=== PATIENT | female | born 1960 | race Caucasian/White ===

== ENCOUNTER 2020-06-08 14:46 | Outpatient (REF) | payer BC, SELFPAY ==
[2020-06-08 17:15] LABS: Alanine Aminotransferase 33 U/L (0-31); Albumin Level 4.9 g/dL (3.5-5.0); Alkaline Phosphatase 57 U/L (39-117); Anion Gap 12 (12-20); Aspartate Amino Transferase 22 U/L (5-31); Bilirubin Total 0.7 mg/dL (0.0-1.0); Blood Urea Nitrogen 14 mg/dL (9-16); Calcium 9.9 mg/dL (8.4-10.2); Carbon Dioxide 30 mmol/L (22-29); Chloride 103 mmol/L (96-108); Estimated Glomerular Filt Rate > 60; Glucose Random 96 mg/dL (60-115); Potassium 3.8 mmol/l (3.3-5.1); Sodium 141 mmol/L (135-145); Total Protein 7.7 g/dL (6.5-8.0)
[2020-06-09 10:56] LABS: SARS COV2 IgG Negative (Negative)
== END 2020-06-08 14:47 | disposition home or self-care (01) ==
LOC: HO.HMGCLDS 14:46
PROVIDERS: PCP Internal Medicine; Visit Provider Internal Medicine
DX: Z00.01 Encounter for general adult medical examination with abnormal findings (principal); R25.2 Cramp and spasm; Z20.828 Contact with and (suspected) exposure to other viral communicable diseases
CPT/HCPCS: 80053; 86769

== ENCOUNTER → 2020-07-08 13:36 | Outpatient (BNVA) | payer BC, SELFPAY | PROVIDERS: PCP Internal Medicine; Referring Provider Internal Medicine; Visit Provider Nurse Practitioner | DX: Z76.89 Persons encountering health services in other specified circumstances (principal) ==

== ENCOUNTER 2020-07-21 08:04 | Outpatient (REF) | payer BC, SELFPAY ==
--- NOTE | 2020-07-21 08:08 | US_ITS ---
EXAMINATION: US ABDOMEN LIMITED CLINICAL INFORMATION: Liver cyst. COMPARISON: Ultrasound abdomen complete dated 02/16/2019. TECHNIQUE: Real-time imaging of the right upper quadrant abdominal viscera. FINDINGS: PANCREAS: The visualized head of the pancreas is within normal limits. The remainder of the pancreas is obscured by overlying bowel gas. LIVER: The liver is normal in size. The liver contour is normal. Parenchymal echogenicity is normal. Within the left lobe is a 0.7 x 0.5 x 0.7 cm simple cyst, unchanged in size or character from the 2019 comparison. No new or or enlarging hepatic lesions are identified. There is no intrahepatic biliary duct dilatation seen. GALLBLADDER: Normal. The gallbladder is physiologically distended without evidence of stones, sludge, polyps, wall thickening or pericholecystic fluid. COMMON BILE DUCT: Normal in caliber measuring 0.4 cm in diameter. RIGHT KIDNEY: Normal. No hydronephrosis. No renal calculi or focal parenchymal lesions. The kidney measures 11.0 cm in maximum dimension. FREE FLUID: None. US/US abdomen limited IMPRESSION: 1. Subcentimeter simple cyst within the left hepatic lobe is stable from 2019. No new hepatic lesions identified. 2. Otherwise unremarkable abdominal ultrasound.
== END 2020-07-21 08:05 | disposition home or self-care (01) ==
LOC: HO.US 08:04
PROVIDERS: Visit Provider Nurse Practitioner
DX: K76.89 Other specified diseases of liver (principal)
CPT/HCPCS: 76705

== ENCOUNTER → 2020-08-25 09:06 | Outpatient (BNVA) | payer BC, SELFPAY | PROVIDERS: PCP Internal Medicine; Visit Provider Nurse Practitioner | DX: Z76.89 Persons encountering health services in other specified circumstances (principal) ==

== ENCOUNTER 2021-02-21 09:59 | Outpatient (REF) | payer BC, SELFPAY ==
[2021-02-21 13:21] LABS: MANUAL DIFF FLAG NO
[2021-02-21 13:30] LABS: Basophils Absolute Auto 0.1 X10*3/uL (0.0-0.2); Basophils Percent Auto 1.8 % (0-2); Eosinophils Absolute Auto 0.4 X10*3/uL (0.0-0.4); Eosinophils Percent Auto 6.5 % (0-4); Hematocrit 45.1 % (37-47); Hemoglobin 14.6 g/dl (12.0-16.0); Imm Gran Abs Auto 0.02 X10*3/uL (0.00-0.03); Imm Gran Pct Auto 0.4 % (0.0-0.4); Lymphocytes Absolute Auto 1.7 X10*3/uL (1.2-4.9); Mean Corpuscular HGB Conc 32.4 g/dl (31.0-35.0); Mean Corpuscular Hemoglobin 28.7 pg (27.0-33.0); Mean Corpuscular Volume 88.6 fL (80-98); Monocytes Absolute Auto 0.5 X10*3/uL (0.1-1.2); Monocytes Percent Auto 9.3 % (2-11); Platelet Count 359 X10*3/uL (160-400); Red Blood Count 5.09 X10*6/uL (4.20-5.50); Red Cell Distribution Width 12.3 % (11.0-16.0); White Blood Count 5.7 X10*3/uL (4.8-10.8)
[2021-02-21 13:54] LABS: Alanine Aminotransferase 23 U/L (0-31); Albumin Level 4.7 g/dL (3.5-5.0); Alkaline Phosphatase 58 U/L (39-117); Anion Gap 11 (12-20); Aspartate Amino Transferase 21 U/L (5-31); Bilirubin Total 0.8 mg/dL (0.0-1.0); Blood Urea Nitrogen 16 mg/dL (9-16); Calcium 9.7 mg/dL (8.4-10.2); Carbon Dioxide 29 mmol/L (22-29); Chloride 106 mmol/L (96-108); Estimated Glomerular Filt Rate > 60; Glucose Random 105 mg/dL (60-115); Sodium 141 mmol/L (135-145); Total Protein 7.2 g/dL (6.5-8.0)
== END 2021-02-21 10:00 | disposition home or self-care (01) ==
LOC: HO.10HDL 09:59
PROVIDERS: PCP Internal Medicine; Referring Provider Internal Medicine; Visit Provider Nurse Practitioner
DX: K21.9 Gastro-esophageal reflux disease without esophagitis (principal); K58.9 Irritable bowel syndrome, unspecified; Q27.8 Other specified congenital malformations of peripheral vascular system; K29.30 Chronic superficial gastritis without bleeding; K76.89 Other specified diseases of liver; Z83.71 Family history of colonic polyps
CPT/HCPCS: 36415; 80053; 85025

== ENCOUNTER 2021-03-28 07:26 | Outpatient (REF) | payer BC, SELFPAY ==
--- NOTE | ~2021-03-28 | MM_ITS ---
EXAMINATION: MM SCREENING DIGITAL BREAST TOMOSYNTHESIS, BILATERAL CLINICAL INFORMATION: Screening. Asymptomatic. The lifetime risk of breast cancer based on the Tyrer-Cuzick Model is 12%. COMPARISON: Mammography: 03/22/2020, 12/27/2018, 11/16/2017 TECHNIQUE: Digital breast tomosynthesis is performed in both the craniocaudal and mediolateral oblique views along with computer-aided detection (CAD). Synthesized 2D images are generated from the tomosynthesis. FINDINGS: The breasts are heterogeneously dense, which may obscure small masses (ACR BI-RADS breast composition Category c). There are no significant masses, abnormal calcifications, or other abnormalities. There is stable smooth nodule mid upper outer left breast and stable smooth nodule mid upper outer right breast similar to prior studies. The axilla and skin contours are unremarkable. No significant changes. MM/MM tomosynthesis screening BI IMPRESSION: No mammographic evidence of malignancy. ASSESSMENT: BI-RADS 2: Benign RECOMMENDATION: Routine annual mammography screening. This patient's information was entered into a reminder system with a target due date for their next mammogram.
== END 2021-03-28 07:27 | disposition home or self-care (01) ==
LOC: HO.MAMMO 07:26
PROVIDERS: Visit Provider Internal Medicine
DX: Z12.31 Encounter for screening mammogram for malignant neoplasm of breast (principal)
CPT/HCPCS: 77063; 77067

== ENCOUNTER 2021-03-29 12:45 | Day surgery (SDC) | payer BC, SELFPAY ==
[2021-03-22 13:21] VITALS: BMI 27.0
--- NOTE | 2021-03-28 11:48 | HO.ANESPROP2 ---
Documented by User: Nancy Grahamney 03/28/21 11:49 HPI - Anesthesia Eval Consult details Narrative: 61yo F for Colonoscopy PMFSH Active Problems Active Problems: All Active Problems (Updated 03/22/21 @ 13:25 by Gaby Ahn) GERD (gastroesophageal reflux disease) (Acute) Dysphagia lusoria (Acute) Chronic superficial gastritis without bleeding (Acute) IBS (irritable bowel syndrome) (Acute) Liver cyst (Acute) Family history of polyps in the colon (Acute) Past Medical History Medical History (Updated 03/22/21 @ 13:25 by Gaby Ahn) COVID-19 vaccine series completed GERD (gastroesophageal reflux disease) Hiatal hernia IBS (irritable bowel syndrome) Osteoarthritis Family History Family History Mother Breast cancer Colon polyps High blood pressure Hypothyroid Father CVD (cardiovascular disease) Brother H/O heart artery stent Cancer Surgical History Surgical History (Updated 03/22/21 @ 13:14 by Gaby Ahn) H/O esophagogastroduodenoscopy History of nasal septoplasty Hx of section Hx of colonoscopy Hx of oral surgery Social History Social History Are you a primary career and guidance counselor to a significant other at home: No Do you presently have visiting nurse or other home services: No Alcohol intake: current Alcohol intake frequency: a few times a month Alcohol type: wine Patient Tobacco Use Status: Former Tobacco user Quit Date: Back in High School Tobacco use type: Cigarette Years Smoked: in high school Second Hand Smoke Exposure: No Use of substances other than those prescribed or required for medical reasons: No Have you been hit, kicked, punched, or otherwise hurt by someone within the past year? If so, by whom?: No Are you DNR?: No Advance Directives: No Advance Directives Information Provided: No Advance Directives on File: No Recently lost weight without trying: No Eating poorly because of decreased appetite: No Nutrition Risks: No Nutritional Risk Patient : No Meds Allergies Allergy/AdvReac Type Severity Reaction Status Date / Time No Known Allergies Allergy Verified 03/22/21 13:09 [No Known Allergies*] Home Medications Medication Instructions Recorded Confirmed Last Taken Type cholecalciferol (vitamin D3) 25 25 mcg PO DAILY 03/22/21 03/22/21 Unknown History mcg (1,000 unit) capsule (Vitamin D3) Exam Exam Date and Time: March 28, 2021 1148 Height,Weight and Vital Signs: Height 5 ft 4.5 in Weight 72.575 kg Pertinent Lab Results Pertinent Lab Results: Laboratory Tests 02/21/21 02/21/21 11:12 11:12 WBC 5.7 Hgb 14.6 Hct 45.1 Plt Count 359 Sodium 141 Potassium 5.0 Chloride 106 Carbon Dioxide 29 BUN 16 Creatinine 0.71 Assessment and Plan Assessment Anesthesia Assessment: Chart Reviewed Documented by User: Tisha Zambrano 03/29/21 13:09 [facility] Past Medical History Medical History (Updated 03/22/21 @ 13:25 by Gaby Ahn) COVID-19 vaccine series completed GERD (gastroesophageal reflux disease) Hiatal hernia IBS (irritable bowel syndrome) Osteoarthritis Family History Family History Mother Breast cancer Colon polyps High blood pressure Hypothyroid Father CVD (cardiovascular disease) Brother H/O heart artery stent Cancer Surgical History Surgical History (Updated 03/22/21 @ 13:14 by Gaby Ahn) H/O esophagogastroduodenoscopy History of nasal septoplasty Hx of section Hx of colonoscopy Hx of oral surgery Social History Social History Are you a primary career and guidance counselor to a significant other at home: No Do you presently have visiting nurse or other home services: No Alcohol intake: current Alcohol intake frequency: a few times a month Alcohol type: wine Patient Tobacco Use Status: Former Tobacco user Quit Date: Back in High School Tobacco use type: Cigarette Years Smoked: in high school Second Hand Smoke Exposure: No Use of substances other than those prescribed or required for medical reasons: No Have you been hit, kicked, punched, or otherwise hurt by someone within the past year? If so, by whom?: No Are you DNR?: No Advance Directives: No Advance Directives Information Provided: No Advance Directives on File: No Recently lost weight without trying: No Eating poorly because of decreased appetite: No Nutrition Risks: No Nutritional Risk Patient : No Meds Allergies Allergy/AdvReac Type Severity Reaction Status Date / Time No Known Allergies Allergy Verified 03/22/21 13:09 [No Known Allergies*] Home Medications Medication Instructions Recorded Confirmed Last Taken Type cholecalciferol (vitamin D3) 25 25 mcg PO DAILY 03/22/21 03/22/21 Unknown History mcg (1,000 unit) capsule (Vitamin D3) Exam Airway Mallampati Class: II TM Dist: >3cm Neck ROM: Full Partial: Lower (Perm) Heart: rrr Lungs: cya Assessment and Plan Assessment Anesthesia Assessment: Anesthesia Plan Discussed and Chart Reviewed Final Anesthetic Review NPO: Yes ASA Class: II Final Preanesthetic Review: No Changes in Pt Med Stat, Meds/Allgs Chart Reviewed and Consent Obtained/Reviewed Patient Risk: Intermediate Procedure Risk: Intermediate Anesthetic Plan Anesthetic Plan: MAC: Disposition: Standard PACU
[2021-03-29 13:11] VITALS: BP 127/90; PULSE 84; RESP 16; TEMP 36.7; O2SAT 98
[2021-03-29] MEDS: Lactated Ringers 1,000 ML 100 ML IVCONT (13:21)
--- NOTE | 2021-03-29 13:36 | P.HPSUR_ITS ---
Pre-Procedural Eval Section A Date of Service: 03/29/21 Section B Chief Complaint: hx of colonic polyps Details of Present Illness: mother had polyps in her 40s Relevant Family History (Specify if Yes): Yes Relevant Social History: None (ex smoker) Present Medications: see Short Stay Collaborative assessment Medical History: Significant History (GERD (gastroesophageal reflux disease) Hiatal hernia IBS (irritable bowel syndrome) Osteoarthritis) History of Previous Operations: Relevant previous surgery/procedure and date(s) (H/O esophagogastroduodenoscopy History of nasal septoplasty Hx of section Hx of colonoscopy Hx of oral surgery) Allergies: Allergies Allergy/AdvReac Type Severity Reaction Status Date / Time No Known Allergies Allergy Verified 03/22/21 13:09 [No Known Allergies*] Review of Systems Sugical H&P ROS: Negative: Constitution, Cardiovascular, Respiratory, Neurological, Psychiatric, Hem-Onc, Allergic/Immunologic, Gastrointestinal, Genitourinary, Musculoskeletal, Integumentary, Endocrine and Eye s/Ears/Nose/Throat Exam Surgical H&P Exam: Normal: HEENT, Normal: Heart, Normal: Lungs, Normal: Extremities, Normal: Abdomen, Normal: Skin and Normal: Neurological Plan Diagnosis/Plan: Unchanged I have reviewed the history and physical and performed a pertinent physical examination on my patient. No changes have occurred unless specified.
--- NOTE | 2021-03-29 13:38 | PM.OP ---
Brief Operative Note Date of Service: 03/29/21 Pre-op diagnosis: colon screen, FH of polyps in mother Post-op diagnosis: same Procedure: see op note Surgeon: Blayne Forbes MD Anesthesia: MAC Was an Photoengraving Supervisor used for this Procedure?: No Estimated blood loss (mL): 0 Condition: stable Disposition: PACU
--- NOTE | 2021-03-29 13:39 | P.CONAN_ITS ---
[facility] Active Problems Active Problems: All Active Problems (Updated 03/22/21 @ 13:25 by Gaby tapia) GERD (gastroesophageal reflux disease) (Acute) Dysphagia lusoria (Acute) Chronic superficial gastritis without bleeding (Acute) IBS (irritable bowel syndrome) (Acute) Liver cyst (Acute) Family history of polyps in the colon (Acute) Past Medical History Medical History (Updated 03/22/21 @ 13:25 by Gaby Ahn) COVID-19 vaccine series completed GERD (gastroesophageal reflux disease) Hiatal hernia IBS (irritable bowel syndrome) Osteoarthritis Family History Family History Mother Breast cancer Colon polyps High blood pressure Hypothyroid Father CVD (cardiovascular disease) Brother H/O heart artery stent Cancer Family history of problems with anesthesia: Yes Surgical History Surgical History (Updated 03/22/21 @ 13:14 by Gaby Ahn) H/O esophagogastroduodenoscopy History of nasal septoplasty Hx of section Hx of colonoscopy Hx of oral surgery History of Problems with Anesthesia: Yes Social History Social History Are you a primary director of primary care to a significant other at home: No Do you presently have visiting nurse or other home services: No Alcohol intake: current Alcohol intake frequency: a few times a month Alcohol type: wine Patient Tobacco Use Status: Former Tobacco user Quit Date: Back in High School Tobacco use type: Cigarette Years Smoked: in high school Second Hand Smoke Exposure: No Use of substances other than those prescribed or required for medical reasons: No Have you been hit, kicked, punched, or otherwise hurt by someone within the past year? If so, by whom?: No Are you DNR?: No Advance Directives: No Advance Directives Information Provided: No Advance Directives on File: No Recently lost weight without trying: No Eating poorly because of decreased appetite: No Nutrition Risks: No Nutritional Risk Patient : No Meds Allergies Allergy/AdvReac Type Severity Reaction Status Date / Time No Known Allergies Allergy Verified 03/22/21 13:09 [No Known Allergies*] Active Medications: Current Medications Generic Name Dose Route Start Last Admin Trade Name Freq PRN Reason Stop Dose Admin Lactated Ringer's 1,000 mls @ 100 mls/hr 03/29/21 13:15 03/29/21 13:21 Lr IVCONT 100 mls/hr .Q10H VAMSI Administration Home Medications Medication Instructions Recorded Confirmed Last Taken Type cholecalciferol (vitamin D3) 25 25 mcg PO DAILY 03/22/21 03/22/21 Unknown History mcg (1,000 unit) capsule (Vitamin D3) Exam Exam Date and Time: March 29, 2021 1339 Height,Weight and Vital Signs: Height 5 ft 4.5 in Weight 72.575 kg Last Vital Signs Temp 98.0 F 03/29/21 13:11 Pulse 84 03/29/21 13:11 Resp 16 03/29/21 13:11 BP 127/90 H 03/29/21 13:11 Pulse Ox 98 03/29/21 13:11 Airway Mallampati Class: II TM Dist: >3cm Neck ROM: Full Heart: rrr Lungs: cta Assessment and Plan Assessment Anesthesia Assessment: Anesthesia Plan Discussed and Chart Reviewed Final Anesthetic Review Family History of Problems with Anesthesia: Yes History of Problems with Anesthesia: Yes NPO: Yes ASA Class: III and Emergency Final Preanesthetic Review: No Changes in Pt Med Stat, Meds/Allgs Chart Reviewed and Consent Obtained/Reviewed Patient Risk: Intermediate Procedure Risk: Intermediate Anesthetic Plan Anesthetic Plan: GA Disposition: Standard PACU
--- NOTE | 2021-03-29 13:39 | P.OP_ITS ---
Operative Note Operative Note Date of Service: 03/29/21 Narrative: Operative Information Procedure Description: Colonoscopy COLONOSCOPY Instrument: Olympus variable stiffness adult scope 190L Colonoscopy Monitoring: Vital signs and clinical assessment, continuous EKG monitoring, Pulse oximetry, Carbon Dioxide monitoring and blood pressure monitoring were done throughout the procedure. Colon withdrawal time was 8 minutes. Procedure: The patient was placed in the left lateral decubitis position and pre-procedure medications were administered. After a digital rectal examination of the ano-rectum, the video colonoscope was inserted into the rectum and advanced through the colon to the cecum/TI. The colonoscope was slowly withdrawn in a retrograde panoramic fashion and the colon mucosa was carefully examined including a retroflexed view of the rectum. Findings and interventions are described below. Procedure Difficulty: easy Findings: Terminal Ileum-normal Cecum:normal Ascending Colon: normal Transverse Colon -normal Descending Colon:normal Sigmoid Colon: normal Rectum: Retroflexion with small internal hemorrhoids, grade I with skin tags Anorectum - normal Colon preparation: [place] Bowel Preparation Scale Right colon; 2 Transverse colon: 3 Left colon; 3 (0 = Unprepared colon segment with mucosa not seen due to solid stool that cannot be cleared. 1 = Portion of mucosa of the colon segment seen, but other areas of the colon segment not well seen due to staining, residual stool and/or opaque liquid. 2 = Minor amount of residual staining, small fragments of stool and/or opaque liquid, but mucosa of colon segment seen well. 3 = Entire mucosa of colon segment seen well with no residual staining, small fragments of stool or opaque liquid) Impression and Post Procedure Diagnosis: internal hemorrhoids Plan: High fiber diet leaflet Avoid straining at stool, epsom salts and sitz bath, anusol supps or cream Repeat Colonoscopy in 5 years due to Fh of colon polyps or earlier if clinically indicated Above findings were reviewed with the patient and relevant handouts were provided if indicated.
[2021-03-29 14:13] VITALS: BP 108/69; PULSE 95; RESP 16; TEMP 36.8; O2SAT 97
[2021-03-29 14:28] VITALS: BP 128/79; PULSE 84; RESP 17; TEMP 36.8; O2SAT 98
== END 2021-03-29 15:00 | disposition home or self-care (01) ==
PROVIDERS: PCP Internal Medicine; Visit Provider Internal Medicine Gastroenterology
PROC: 0DJD8ZZ Inspection of Lower Intestinal Tract, Via Natural or Artificial Opening Endoscopic (ICD-10-PCS; CPT 45378; principal; 2021-03-29 13:50)
DX: Z12.11 Encounter for screening for malignant neoplasm of colon (principal); Z83.71 Family history of colonic polyps; K64.0 First degree hemorrhoids; K64.4 Residual hemorrhoidal skin tags; K58.9 Irritable bowel syndrome, unspecified; K21.9 Gastro-esophageal reflux disease without esophagitis; K76.89 Other specified diseases of liver; Z87.891 Personal history of nicotine dependence; Z79.899 Other long term (current) drug therapy
CPT/HCPCS: 45378; J2405

== ENCOUNTER → 2021-04-17 08:22 | Outpatient (BNVA) | payer BC, SELFPAY | PROVIDERS: PCP Internal Medicine; Visit Provider Nurse Practitioner ==

== ENCOUNTER 2021-04-27 11:48 | Outpatient (REF) | payer BC, SELFPAY | END 2021-04-27 11:49 | disposition home or self-care (01) | LOC: HO.LNP 11:48 | PROVIDERS: Visit Provider Hospitalist | DX: Z20.822 Contact with and (suspected) exposure to COVID-19 (principal); J01.90 Acute sinusitis, unspecified | CPT/HCPCS: U0003; U0005 ==

== ENCOUNTER → 2021-10-16 15:36 | Outpatient (BNVA) | payer BC, SELFPAY | PROVIDERS: PCP Internal Medicine; Referring Provider Internal Medicine; Visit Provider Nurse Practitioner ==

== ENCOUNTER 2022-06-09 07:41 | Outpatient (REF) | payer BC, SELFPAY ==
--- NOTE | ~2022-06-09 | MM_ITS ---
EXAMINATION: MM SCREENING DIGITAL BREAST TOMOSYNTHESIS, BILATERAL CLINICAL INFORMATION: Screening. Asymptomatic. Family history breast cancer, mother. The lifetime risk of breast cancer based on the Tyrer-Cuzick Model is 13%. COMPARISON: Mammography: 03/28/2021, 03/22/2020, 12/27/2018 TECHNIQUE: Digital breast tomosynthesis is performed in both the craniocaudal and mediolateral oblique views along with computer-aided detection (CAD). Synthesized 2D images are generated from the tomosynthesis. FINDINGS: The breasts are heterogeneously dense, which may obscure small masses (ACR BI-RADS breast composition Category c). Bilateral solitary smooth nodule mid upper outer left breast and mid upper outer right breast are similar to slightly decreased from prior exam. There is no developing density or interval architectural abnormality. No significant mass. No abnormal calcifications. The axilla and skin contours are unremarkable. No significant changes. MM/MM tomosynthesis screening BI IMPRESSION: No mammographic evidence of malignancy. ASSESSMENT: BI-RADS 2: Benign RECOMMENDATION: Routine annual mammography screening. This patient's information was entered into a reminder system with a target due date for their next mammogram.
== END 2022-06-09 07:42 | disposition home or self-care (01) ==
LOC: HO.MAMMO 07:41
PROVIDERS: Absent Provider Obstetrics & Gynecology; PCP Internal Medicine; Visit Provider Internal Medicine
DX: Z12.31 Encounter for screening mammogram for malignant neoplasm of breast (principal)
CPT/HCPCS: 77063; 77067

== ENCOUNTER → 2022-12-06 13:52 | Outpatient (BNVA) | payer BC, SELFPAY | PROVIDERS: PCP Internal Medicine; Referring Provider Internal Medicine; Visit Provider Nurse Practitioner | DX: Z13.89 Encounter for screening for other disorder (principal) ==

== ENCOUNTER 2023-01-30 06:10 | Outpatient (REF) | payer BC, SELFPAY ==
[2023-01-30 11:10] LABS: MANUAL DIFF FLAG NO
[2023-01-30 11:34] LABS: Basophils Absolute Auto 0.1 X10*3/uL (0.0-0.2); Basophils Percent Auto 1.5 % (0-2); Eosinophils Absolute Auto 0.5 X10*3/uL (0.0-0.4); Eosinophils Percent Auto 7.5 % (0-4); Hematocrit 44.7 % (37.0-47.0); Hemoglobin 14.3 g/dl (12.0-16.0); Imm Gran Abs Auto 0.02 X10*3/uL (0.00-0.03); Imm Gran Pct Auto 0.3 % (0.0-0.4); Lymphocytes Absolute Auto 1.6 X10*3/uL (1.2-4.9); Lymphocytes Percent Auto 25.4 % (20-40); Mean Corpuscular Hemoglobin 28.5 pg (27.0-33.0); Mean Platelet Volume 9.8 fL (9.4-12.3); Monocytes Absolute Auto 0.6 X10*3/uL (0.1-1.2); Monocytes Percent Auto 8.9 % (2-11); Neutrophils Absolute Auto 3.5 x10*3/uL (2.0-8.3); Neutrophils Percent Auto 56.4 % (45-73); Platelet Count 366 X10*3/uL (160-400); Red Blood Count 5.02 X10*6/uL (4.20-5.50); Red Cell Distribution Width 12.5 % (11.0-16.0); White Blood Count 6.2 X10*3/uL (4.8-10.8)
[2023-01-30 12:07] LABS: Alanine Aminotransferase 28 U/L (0-31); Albumin Level 4.4 g/dL (3.5-5.0); Alkaline Phosphatase 53 U/L (39-117); Anion Gap 13 (12-20); Aspartate Amino Transferase 22 U/L (5-31); Bilirubin Total 0.6 mg/dL (0.0-1.0); Blood Urea Nitrogen 20 mg/dL (9-16); Calcium 9.6 mg/dL (8.4-10.2); Carbon Dioxide 26 mmol/L (22-29); Chloride 108 mmol/L (96-108); Cholesterol 175 mg/dL; Estimated Glomerular Filt Rate > 60; Glucose Fasting 125 mg/dL (60-99); HDL Cholesterol 54 mg/dL; LDL Cholesterol Calculated 109 mg/dl; Potassium 4.3 mmol/L (3.3-5.1); Rheumatoid Factor < 13.0 IU/mL (<15.0); Sodium 143 mmol/L (135-145); TSH reflex Free T4 1.38 uIU/mL (0.32-4.0); Triglycerides 62 mg/dL
[2023-02-06 16:58] LABS: HLA B27 Positive (Negative)
== END 2023-01-30 06:11 | disposition home or self-care (01) ==
LOC: HO.HMGCLDS 06:10
PROVIDERS: PCP Internal Medicine; Visit Provider Internal Medicine
DX: Z00.01 Encounter for general adult medical examination with abnormal findings (principal); K21.9 Gastro-esophageal reflux disease without esophagitis; K58.9 Irritable bowel syndrome, unspecified; E04.1 Nontoxic single thyroid nodule; Z82.69 Family history of other diseases of the musculoskeletal system and connective tissue; Z82.61 Family history of arthritis; M54.50 Low back pain, unspecified; Z13.220 Encounter for screening for lipoid disorders
CPT/HCPCS: 36415; 80053; 80061; 84443; 85025; 86431; 86812

== ENCOUNTER 2023-03-28 13:56 | Outpatient (AMB) | payer BC, SELFPAY ==
[2023-03-28 14:09] VITALS: BP 134/76; PULSE 98; BMI 27.9
--- NOTE | 2023-03-28 14:09 | MHC.OFFVIS ---
Intake Vital Signs 03/28/23 14:09 Height 5 ft 5 in Weight 167 lb 8.821 oz BMI 27.9 BP 134/76 Blood Pressure Location Lt brachial Position Sitting Pulse 98 Intake Visit Reasons: NPV/Brannon/Abnormal EKG Intake Note: New patient abnormal ekg did go to [facility] yesterday with chest pain think is was spasm Insurance Verify Rep Required: No Allergies No Known Allergies [No Known Allergies*] Allergy (Verified 02/19/23 11:20) Medication List - Last Reconciled 03/28/23 by Rai Mcclain MD albuterol sulfate 90 mcg/actuation (Ventolin HFA) 1 inh inhalation Q4-6H PRN cholecalciferol (vitamin D3) (Vitamin D3) 25 mcg PO DAILY pantoprazole 20 mg PO DAILY HPI HPI Comments History of Present Illness Details Thank you for referring Helen in cardiology consultation today for abnormal EKG that was done on a routine exam. This showed septal QS pattern suggestive of septal infarct. Recently she ended up going to [facility] because she developed sudden-onset retrosternal chest discomfort at night that lasted for few hours. She described as severe chest pressure radiating to the arm and both jaws. She thought initially this was acid reflux disease and took some Tums. Symptoms then subsided and following that while she was working around the house she developed similar symptoms and ended up going to the emergency room. She was told that her EKGs were unremarkable and biomarkers were within normal limits. She was subsequently released home and she comes here for follow-up. She denies any exertional symptoms. 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 She has a stressful job. She is concerned about her chest pain syndrome as well as abnormal EKG given her strong family history for premature coronary artery disease in both her grandparents and her dad. She has mild hyperlipidemia. She also has been noticing a blood pressure at home is elevated in the 140-150/90 systolic range. She denies any heart failure symptoms. Denies any prolonged irregular heartbeat or palpitations. [facility] Medical History COVID-19 vaccine series completed GERD (gastroesophageal reflux disease) Hiatal hernia IBS (irritable bowel syndrome) Osteoarthritis Surgical History H/O esophagogastroduodenoscopy History of nasal septoplasty Hx of section Hx of colonoscopy Hx of oral surgery Family History Mother Breast cancer Colon polyps High blood pressure Hypothyroid Father CVD (cardiovascular disease) Brother H/O heart artery stent Cancer Social History Are you a primary care administrative tech to a significant other at home: No Do you presently have visiting nurse or other home services: No Alcohol intake: current Alcohol intake frequency: a few times a month Alcohol type: wine Patient Tobacco Use Status: Former Tobacco user Quit Date: Back in High School Tobacco use type: Cigarette Years Smoked: in high school Second Hand Smoke Exposure: No Cognitive needs: No Hearing needs: No Vision needs: Yes Review of Systems Const Denies chills, Denies daytime sleepiness, Denies fatigue, Denies fever(s), Denies frequent falls, Denies poor appetite, Denies snoring, Denies stops breathing during sleep, Denies weakness, Denies weight gain and Denies weight loss Eyes Denies loss of vision ENT Denies dizziness and Denies hearing loss Card Denies chest pain, Denies claudication, Denies leg edema, Denies lightheadedness, Denies palpitations, Denies dyspnea, Denies dyspnea on exertion and Denies orthopnea Resp Denies cough, Denies excessive phlegm production, Denies dyspnea, Denies dyspnea on exertion, Denies snoring and Denies wheezing GI Denies abdominal pain, Denies hematochezia, Denies change in bowel habits, Denies nausea and Denies vomiting Denies urinary frequency and Denies dysuria Musc Denies arthralgias, Denies muscle weakness, Denies numbness and Denies other (frequent falls) Skin/Breast Denies nail changes and Denies rash Neuro Denies Abnormal speech present, Denies dizziness, Denies frequent falls, Denies loss of vision, Denies memory loss, Denies numbness and Denies weakness Psych Denies depression and Denies memory loss Endo Denies fatigue and Denies palpitations Dayron/Lymph Reports easy bruising and Reports other (anemia) Aller/Immun Denies wheezing Physical Exam Vital Signs: Last Vital Signs Pulse 98 03/28/23 14:09 BP 134/76 03/28/23 14:09 BMI result Body Mass Index 27.9 Const General: cooperative, comfortable, no acute distress, alert, awake, Physically active and well groomed Nutritional Appearance: overweight Orientation/consciousness: patient oriented x3 Limitations: no limitations HEENT Head: Yes normocephalic and Yes atraumatic Neck Neck: Yes trachea midline, Yes supple and Yes no JVD Resp Effort & Inspection: normal respiratory effort Auscultation: clear to auscultation bilaterally Cardio Jugular venous distension: no JVD Palpation: normal PMI Rate: regular rate Rhythm: regular rhythm Heart sounds: S1 normal heart sound present, S2 normal heart sound present, no click, no gallops, no murmurs and no rubs GI Auscultation: normal bowel sounds Skin General skin exam: no rashes or lesions noted Neuro General: patient oriented x3 and no focal motor deficits Speech: No Abnormal speech present Extrem General: Yes no clubbing, cyanosis or edema Psych Appearance: grossly normal Office Procedures EKG Details: EKG shows normal sinus rhythm with QS pattern in lead V1 and V2 [id number], Complete Assessment & Plan Assessment & Plan (1) Chest pain: Code(s): R07.9 - Chest pain, unspecified Plan: Patient with recent episode of chest discomfort which is concerning but atypical for myocardial ischemia. She has significant risk factors for coronary artery disease. At this point I would suggest her to undergo treadmill stress test to evaluate for myocardial ischemia. This test will be scheduled in near future. Will also obtain echocardiogram to assess for LV systolic and diastolic function. She is noted to have slightly elevated blood pressure. Advised to continue monitor blood pressure. If remains persistently elevated will require pharmacotherapy for hypertension. If her stress test is within normal limits, will pursue further screening with coronary calcium score. This was discussed with her. (2) Abnormal EKG: Code(s): R94.31 - Abnormal electrocardiogram [ECG] [EKG] Plan: Abnormal EKG consistent with QS pattern in lead V1 V2 which could suggest septal infarct, most likely normal weight in for her. Obtain echocardiogram as above. If this shows no significant regional wall motion abnormality, advised to keep a call P of her EKG for future reference. Will follow up in the clinic in 2 months time, sooner p.r.n.. Thank you for allowing me to partake in her care Coding Level of Care Code New Pt Level 4 (79849) Diagnoses Chest pain R07.9 Abnormal EKG R94.31 CPT Codes EKG - CPT: 56126-[id number], Complete ([id number])
== END 2023-03-28 14:38 | disposition home or self-care (01) ==
PROVIDERS: Visit Provider Internal Medicine Cardiovascular Disease
DX: R07.9 Chest pain, unspecified (principal); R94.31 Abnormal electrocardiogram [ECG] [EKG]
CPT/HCPCS: 93010; 99204

== ENCOUNTER → 2023-03-28 13:56 | Outpatient (BNVA) | payer BC, SELFPAY | PROVIDERS: Visit Provider Internal Medicine Cardiovascular Disease | DX: R07.9 Chest pain, unspecified (principal); R94.31 Abnormal electrocardiogram [ECG] [EKG] | CPT/HCPCS: 93005 ==

== ENCOUNTER → 2023-05-09 08:16 | Outpatient (REF) | payer BC, SELFPAY ==
--- NOTE | 2023-05-09 08:19 | CA_ITS ---
Transthoracic Echocardiogram Patient (Last, First, Middle): Helen Sun A Gender: Female Date of : 1960 Age: 63 Procedure Date: 05/09/2023 Procedure Type: Transthoracic Echocardiogram Location: OP Height: 162.56 cm Weight: 74.84 kg BSA: 1.80 m2 Heart Rate: 71 bpm BP: 152 / 90 mmHg [employer]arel Mach[employer] Instructor: LIZABETH Referring MD: Rai Mcclain MD [employer] Dies: Rai Mcclain MD Symptoms: R94.31 - Abnormal electrocardiogram [ECG] [EKG] Study Quality: Adequate ECG Rhythm: Sinus Conclusions: - 1. Normal LV systolic function with LVEF of 60 65% with normal filling pattern 2. Trivial aortic regurgitation 3. Normal RV systolic pressure 4. No gross pericardial effusion Findings Left Ventricle Normal left ventricular size, thickness, and systolic function. The visually estimated ejection fraction is between 60-65%. Spectral Doppler is indicative of a normal filling pattern. Right Ventricle Normal right ventricular cavity size and systolic function. Atria Both atria are normal in size. Interatrial shunt cannot be excluded. Aortic Valve There is mild calcification of the aortic valve. There is no aortic valve stenosis. There is trace (trivial) aortic valve regurgitation. Mitral Valve There is mild anterior and posterior mitral leaflet thickening. There is trace mitral valve regurgitation. There is no mitral valve stenosis. Pulmonic Valve The pulmonic valve is likely normal. There is trace pulmonic valve regurgitation. Tricuspid Valve Normal tricuspid valve structure. There is trace tricuspid valve regurgitation. The right ventricular systolic pressure is normal. The right ventricular systolic pressure is 27 mmHg. Normal right atrial pressure. There is no evidence of pulmonary hypertension. Great Vessels All visible segments of the aorta are normal in size. The pulmonary artery was not well visualized. There is no dilatation of the ascending aorta. Venous The inferior vena cava is normal in size and collapses greater than 50% with inspiration. Pericardium/Pleural There is no evidence of pericardial effusion. Measurements 2D Linear Measurements IVSd: 1.10 0.6-0.9/0.6-1.0 cm LVIDd: 4.30 3.9-5.3/4.2-5.9 cm LVIDd Index: 2.39 2.4-3.2/2.2-3.1 cm/m2 LVIDs: 2.79 2.0-3.6 cm LVPWd: 1.04 0.7-1.1 cm LA Diam: 3.90 2.7-3.8/3.0-4.0 cm LAIDs Index: 2.17 1.5-2.3 cm/m2 LV Mass: 195.09 67-162/88-224 g LV Mass Index: 108.38 43-95/49-115 g/m2 LVOT Diam: 1.80 3.0+(-)1.3 cm 2D Systolic Function EF 4C: 55.90 >55% EF 2C: 65.90 >55% EF BiP: 61.20 >55% Mitral Valve MV Pk E: 1.02 MV PK A: 0.81 MV Decel Time: 174.00 E/A: 1.30 E'Lateral: 10.20 E'Medial: 7.18 E/E' Med: 14.20 E/E' Lat: 10.00 PHT: 51.00 MVA PHT: 4.31 Decel Chase: 5.84 Aortic Valve AoV Pk Johny: 1.16 AoV Pk Grad: 5.00 JOSELYN: 1.89 LVOT LVOT Pk Johny: 0.86 LVOT Mn Johny: 0.62 LVOT VTI: 0.20 LVOT Pk Grad: 3.00 LVOT Mn Grad: 2.00 LVOT Diam: 1.80 LVOT Area: 2.54 Diastolic Function MV Pk E: 1.02 MV Pk A: 0.81 E/A: 1.30 E'Medial: 7.18 E/E' Med: 14.20 E' Laterial: 10.20 E/E' Lat: 10.00 Right Ventricle TAPSE (mm): 20.70 TVS' Johny: 9.79 Tricuspid Valve TR Pk Johny: 2.44 TR Pk Grad: 24.00 RA Press: 3.00 RVSP: 27.00 Great Vessels Aorta Sinus of Valsalva: 2.50 2.0-3.5 cm Ao Asc: 3.30 2.1-3.4 cm Pulmonary Veins Pulm Vein S/D 0.90 Pulmonary Valve PV Pk Johny: 0.87 Peak PV Grad: 3.00 Updated in Other Vendor System with Status of Final Rai Mcclain MD electronically signed on 05/09/2023 10:55:41 AM with status of Final
--- NOTE | 2023-05-09 08:19 | CA_ITS ---
Acquisition Time: 2023-05-09 09:36:14 Total Exercise Time: 00:07:09 Test Indications: CHEST PAIN Medications: LBUTEROL Protocol: MITALI Max HR: 153 BPM 97% of Pred: 157 BPM Max BP: 148/084 mmHG Max Work Load: 8.7 METS Exercise stress test exercise 7 min 9 sec achieving 97% MPHR, with mild ot moderate SOB, no chest discomfort, with isolated PVCs, with normotensive response to exercise, without EKG changes. Test reviewed with Dr. Mcclain Very mild upsloping ST depression, possibly non specific Referred By: Rai Mcclain Overread By: RICHAR GATES
== END ==
LOC: HO.CARD 08:16
PROVIDERS: PCP Internal Medicine; Visit Provider Internal Medicine Cardiovascular Disease
DX: R07.9 Chest pain, unspecified (principal); R94.31 Abnormal electrocardiogram [ECG] [EKG]
CPT/HCPCS: 93017; 93306

== ENCOUNTER → 2023-05-09 08:19 | Outpatient (BNV) | payer BC, SELFPAY | PROVIDERS: PCP Internal Medicine; Visit Provider Internal Medicine Cardiovascular Disease | DX: I34.89 Other nonrheumatic mitral valve disorders (principal); R94.31 Abnormal electrocardiogram [ECG] [EKG]; R06.02 Shortness of breath | CPT/HCPCS: 93016; 93018; 93306 ==

== ENCOUNTER 2023-06-15 08:09 | Outpatient (REF) | payer BC, SELFPAY | END 2023-06-15 08:10 | disposition home or self-care (01) | LOC: HO.MAMMO 08:09 | PROVIDERS: PCP Internal Medicine; Visit Provider Internal Medicine | DX: Z12.31 Encounter for screening mammogram for malignant neoplasm of breast (principal) | CPT/HCPCS: 77063; 77067 ==

== ENCOUNTER → 2023-06-15 08:15 | Outpatient (BNV) | payer BC, SELFPAY | PROVIDERS: PCP Internal Medicine; Visit Provider Radiology Diagnostic Radiology | DX: Z12.31 Encounter for screening mammogram for malignant neoplasm of breast (principal) | CPT/HCPCS: 77063; 77067 ==

== ENCOUNTER 2023-06-21 14:30 | Outpatient (AMB) | payer BC, SELFPAY ==
--- NOTE | 2023-06-21 14:32 | A.OFFVIS_ITS ---
Intake Vital Signs 06/21/23 14:33 Height 5 ft 5 in Weight 168 lb 13.985 oz BMI 28.1 BP 159/85 H Blood Pressure Location Rt brachial Position Sitting Pulse 89 Intake Visit Reasons: 6 month fu Intake Note: Patient presents to in office visit today in a 6 month follow up of GERD. CC: Patient c/o LUQ abd pain sometimes, she also have occasional acid reflux. PT reports she was seen in the ED a couple of months ago d/t chest pain at [facility]. She states her EKG was normal at that time but she was referred to cardiology with Dr. Cristina. Patient states all the cardiac labs came back normal . Denies other GI symptoms Account Management Assistant Required: No Accompanied by: Self / Same As Patient Allergies No Known Allergies [No Known Allergies*] Allergy (Verified 07/22/23 10:06) HPI 6 month fu HPI Details Assessment & Plan (1) GERD (gastroesophageal reflux diseas e): Code(s): K21.9 - Gastro-esophageal reflux disease without esophagitis Plan: She continues to do well on her protonix 20mg. Her swallowing has been okay as long as she practices safe swallowing precautions. She continues to have left lower quadrant discomfort that times is dull and other times is fleetingly sharp. She is uncertain if this is related to scar tissue from multiple C- sections, her ovaries, or musculoskeletal source. She will be seeing her power manager since she has not had a pelvic exam in 7 years to see if they can help clarify this. ROV 6 mos. 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 She was also seen subsequently here by Dr. Mcclain and had a negative stress test. She is still to have a cath for definitive r/o. She will also be seeing a rheum specialist in [facility] for her ? ankylosing spondylitis. She DID try taking TUMS and it did effect the pain. She can not ID any factors such as diet or new medications preceding the sx. She has been adherent to her pantoprazole 20mg qd. ROV 6 mos. PFSH Medical History COVID-19 vaccine series completed Osteoarthritis Hiatal hernia IBS (irritable bowel syndrome) GERD (gastroesophageal reflux disease) Surgical History Hx of oral surgery History of nasal septoplasty Hx of section Hx of colonoscopy H/O esophagogastroduodenoscopy Family History Mother Breast cancer Colon polyps High blood pressure Hypothyroid Father CVD (cardiovascular disease) Brother H/O heart artery stent Cancer Substance use disorder Social History Housing: House Are you a primary manager urgent care to a significant other at home: No Do you presently have visiting nurse or other home services: No Alcohol intake: current Alcohol intake frequency: a few times a month Alcohol type: wine Patient Tobacco Use Status: Former Tobacco user Quit Date: Back in High School Tobacco use type: Cigarette Years Smoked: in high school e-Cigarette/Vaping Use: Never Used Second Hand Smoke Exposure: No service: No Current occupational status: employed Cognitive needs: No Hearing needs: No Vision needs: Yes Review of Systems Const Denies fatigue, Denies fever(s), Denies night sweats, Denies poor appetite and Denies weight loss Eyes Details: glasses Reports requires corrective lenses ENT Reports Normal hearing present, Denies dental pain, Denies dysphagia, Denies hearing loss, Denies mouth pain, Denies odynophagia, Denies throat swelling, Denies tongue swelling and Reports other (Dentition adequate) Card Reports chest pain Resp Reports no additional complaints GI Denies abdominal pain, Denies melena, Denies bloating, Denies hematochezia, Denies constipation, Denies GI cramping, Denies dysphagia, Denies excessive flatus, Denies early satiety, Reports heartburn, Denies diarrhea, Denies nausea, Denies odynophagia, Denies vomiting and Denies hematemesis Musc Reports back pain and Reports myalgias Skin/Breast Denies pruritus, Denies lesions, Denies rash and Denies jaundice Neuro Reports Normal hearing present and Denies Abnormal speech present Endo Denies fatigue Aller/Immun Denies throat swelling and Denies tongue swelling Physical Exam Vital Signs: Last Vital Signs Pulse 89 06/21/23 14:33 BP 159/85 H 06/21/23 14:33 BMI result Body Mass Index 28.1 Const General: cooperative, no acute distress, well developed and well groomed Nutritional Appearance: average body habitus and well nourished Orientation/consciousness: oriented to person, oriented to place and oriented to time Limitations: No language barrier HEENT Head: Yes normocephalic and Yes atraumatic Eyes General: appearance normal, both eyes and all related structures Pupils: Equal, round and reactive pupils present Neck Neck: Yes normal visual inspection and Yes no lymphadenopathy Thyroid: Thyroid normal Resp Effort & Inspection: normal respiratory effort and able to speak in complete sentences Auscultation: clear to auscultation bilaterally Cardio Rate: regular rate Rhythm: regular rhythm Heart sounds: Normal, physiologic split S2 sound present Peripheral pulses: radial pulses present and posterior tibial pulses present GI Inspection: No distended and No Abdominal panniculus present Palpation (GI): Soft to palpation, nontender, no guarding, not rigid and No hepatosplenomegaly present Percussion: Yes normal to percussion Auscultation: normal bowel sounds Rectal Exam - Female: deferred Skin General skin exam: no rashes or lesions noted, turgor normal, skin not dry, no jaundice, No spider nevi and no striae Rashes: no rashes Nails: normal Neuro General: oriented to person, oriented to place and oriented to time Cranial nerves: Yes Equal, round and reactive pupils present and Yes Normal hearing present Speech: No Abnormal speech present Extrem General: Yes normal to inspection, No clubbing, No cyanosis and No edema Psych Appearance: grossly normal and well kempt Mental Status: mental status grossly normal Speech and movement: Normal speech and movement present Affect: normal affect Attitude: cooperative Thought process: Normal thought process present and not confabulating Thought content: Normal thought content present Insight: Fair insight present (Psych) Judgement: Fair judgement present (Psych) Assessment & Plan Assessment & Plan (1) GERD (gastroesophageal reflux disease): Code(s): K21.9 - Gastro-esophageal reflux disease without esophagitis Plan: Apparently, she was seen at [facility] for episode of chest pain and at that time had negative cardiac workup. She was also seen subsequently here by Dr. Mcclain and had a negative stress test. She is still to have a cath for definitive r/o. She will also be seeing a rheum specialist in [facility] for her ? . She DID try taking TUMS and it did effect the pain. She can not ID any factors such as diet or new medications preceding the sx. She has been adherent to her pantoprazole 20mg qd. ROV 6 mos. (2) Dysphagia lusoria: Code(s): Q27.8 - Other specified congenital malformations of peripheral vascular system (3) Family history of polyps in the colon: Comment: mother, negative scope 2020 repeat 5 years Code(s): Z83.71 - Family history of colonic polyps Plan Apparently, she was seen at [facility] for episode of chest pain and at that time had negative cardiac workup. She was also seen subsequently here by Dr. Mcclain and had a negative stress test. She is still to have a cath for definitive r/o. She will also be seeing a rheum specialist in [facility] for her ? . She DID try taking TUMS and it did effect the pain. She can not ID any factors such as diet or new medications preceding the sx. She has been adherent to her pantoprazole 20mg qd. We will try increasing this to b.i.d. dosing to see if we can do better with her reflux control. Coding Level of Care Code Est Pt Level 3 (99507) Diagnoses GERD (gastroesophageal reflux disease) K21.9 Dysphagia lusoria Q27.8 Family history of polyps in the colon Z83.71
[2023-06-21 14:33] VITALS: BP 159/85; PULSE 89; BMI 28.1
== END 2023-06-21 15:02 | disposition home or self-care (01) ==
PROVIDERS: Visit Provider Nurse Practitioner
DX: K21.9 Gastro-esophageal reflux disease without esophagitis (principal); Q27.8 Other specified congenital malformations of peripheral vascular system; Z83.71 Family history of colonic polyps
CPT/HCPCS: 99213

== ENCOUNTER → 2023-06-21 14:30 | Outpatient (BNVA) | payer BC, SELFPAY | PROVIDERS: Visit Provider Nurse Practitioner ==

== ENCOUNTER 2023-07-10 14:58 | Outpatient (AMB) | payer BC, SELFPAY ==
--- NOTE | 2023-07-10 14:59 | A.OFFPC_ITS ---
Vital Signs 07/10/23 15:04 Height 5 ft 5 in Weight 169 lb BMI 28.1 BP 148/80 H Blood Pressure Location Rt brachial Position Sitting Pulse 85 Pulse Source Pulse Oximeter Pulse Oximetry (%) 98 Oxygen Delivery Method Room Air Intake Visit Reasons: follow up Allergies No Known Allergies [No Known Allergies*] Allergy (Verified 07/10/23 15:02) Medication List - Last Reconciled 07/10/23 by Lizeth South MD albuterol sulfate 90 mcg/actuation (Ventolin HFA) 1 inh inhalation Q4-6H PRN cholecalciferol (vitamin D3) (Vitamin D3) 25 mcg PO DAILY pantoprazole 20 mg PO DAILY Tobacco use date assessed: 07/10/23 Dental Screening Dental Screen Date: 07/10/23 Did you have a dental visit in the last 12 months?: Yes Did you have a dental problem in the last 6 months where you did not have access to dental care?: No Was dental information given to patient?: Patient has dentist HPI follow up HPI Details Patient is a 63-year-old female came in today for blood pressure monitoring Her blood pressure continued to be elevated she is monitoring it at home as well I am starting her on atenolol 25 mg daily patient will continue to monitor her blood pressure She will get back to me if any problems. She tells me that her mother is also on atenolol and has done well. She will come back for follow-up in October [facility] Medical History COVID-19 vaccine series completed Osteoarthritis Hiatal hernia IBS (irritable bowel syndrome) GERD (gastroesophageal reflux disease) Surgical History Hx of oral surgery History of nasal septoplasty Hx of section Hx of colonoscopy H/O esophagogastroduodenoscopy Family History Mother Breast cancer Colon polyps High blood pressure Hypothyroid Father CVD (cardiovascular disease) Brother H/O heart artery stent Cancer Substance use disorder Social History Housing: House Are you a primary home child care provider to a significant other at home: No Do you presently have visiting nurse or other home services: No Alcohol intake: current Alcohol intake frequency: a few times a month Alcohol type: wine Patient Tobacco Use Status: Former Tobacco user Quit Date: Back in High School Tobacco use type: Cigarette Years Smoked: in high school e-Cigarette/Vaping Use: Never Used Second Hand Smoke Exposure: No service: No Current occupational status: employed Cognitive needs: No Hearing needs: No Vision needs: Yes Questionnaire Thrive Questionnaire Date Thrive assessed: 07/10/23 I am a: Patient What is your living situation today?: I have a steady place to live Within the past 12 months, did the food you bought not last and you didn't have the money to get more?: Never true Within the past 12 months, did you worry whether your food would run out before you got money to buy more?: Never true Do you have trouble paying for medicines?: No Do you have trouble getting transportation to medical appointments?: No Do you have trouble paying your heating and electricity bill?: No Do you have trouble taking care of your child, family member or friend?: No Do you have trouble with day-to-day activities such as bathing, preparing meals, shopping, managing finances, etc.?: No Are you currently unemployed and looking for a job?: No Are you interested in more education?: No Please select the resources that you would like help with: None Currently or been in a relationship where the following occur: no concerns reported AUDIT C Alcohol Use Questionnaire (AUDIT-C) 1. How often do you have a drink containing alcohol?: Monthly or less 2. How many drinks containing alcohol do you have on a typical day when you are drinking?: 1 or 2 3. How often do you have six or more drinks on one occasion?: Never Total Score: 1 HEAVENLY-7 AMB Questionnaire HEAVENLY-7 Date HEAVENLY - 7 assessed: 07/10/23 Feeling nervous, anxious, or on edge: 0 = Not at all Not being able to stop or control worryin = Not at all Worrying too much about different things: 0 = Not at all Trouble relaxin = Not at all Being so restless that it is hard to sit still: 0 = Not at all Becoming easily annoyed or irritable: 0 = Not at all Feeling afraid as if something awful might happen: 0 = Not at all Total HEAVENLY-7 score (0-4 normal; 5-9 mild; 10-14 moderate; 15-21 severe): 0 Source: Developed by Drs. Jair Monique, Angela Velasco, Daniel Whiteside and colleagues, with an educational lane from [employer]. Review of Systems Const Denies chills and Denies fever(s) ENT Denies epistaxis and Denies nasal discharge Card Denies chest pain Resp Denies chest congestion, Denies cough and Denies hemoptysis GI Denies diarrhea and Denies nausea Skin/Breast Denies rash Neuro Reports no additional complaints Psych Reports no additional complaints Endo Reports no additional complaints Physical exam (Primary Care) Vital Signs: Last Vital Signs Pulse 85 07/10/23 15:04 BP 148/80 H 07/10/23 15:04 Pulse Ox 98 07/10/23 15:04 Oxygen Delivery Method Room Air 07/10/23 15:04 BMI result Body Mass Index 28.1 Tobacco/Smoking Status: Tobacco use Status Tobacco use date assessed 07/10/23 07/10/23 15:03 Patient Tobacco Use Status Former Tobacco user 07/10/23 15:00 Tobacco use type Cigarette 07/10/23 15:00 e-Cigarette/Vaping Use Never Used 07/10/23 15:03 Thrive Assessment: Date of Thrive Assessment Date Thrive assessed 07/10/23 07/10/23 15:05 Currently or been in a relationship where the following occur: no concerns reported Const General: cooperative, comfortable and no acute distress Orientation/consciousness: patient oriented x3 HENMT Head: Yes normocephalic Eyes General: appearance normal, both eyes and all related structures Neck Neck: Yes supple Resp Effort & Inspection: normal respiratory effort, no cough and no stridor Cardio Rhythm: regular rhythm Heart sounds: S1 normal heart sound present and S2 normal heart sound present Skin General skin exam: turgor normal Neuro General: patient oriented x3, tone normal and moves all extremities Extrem Right lower extremity: no edema Left lower extremity: no edema Assessment and Plan Assessment & Plan (1) Hypertension, essential: Code(s): I10 - Essential (primary) hypertension (2) Ankylosing spondylitis: Code(s): M45.9 - Ankylosing spondylitis of unspecified sites in spine Qualifiers: Ankylosing spondylitis location: lumbosacral region Qualified Code(s): M45.7 - Ankylosing spondylitis of lumbosacral region (3) Esophageal spasm: Code(s): K22.4 - Dyskinesia of esophagus Plan Patient is a 63-year-old female came in today for blood pressure monitoring Her blood pressure continued to be elevated she is monitoring it at home as well I am starting her on atenolol 25 mg daily patient will continue to monitor her blood pressure She will get back to me if any problems. She tells me that her mother is also on atenolol and has done well. Ankylosing spondylitis gene positive however there is no back pain she has been evaluated by Rheumatology There is nothing need to be done at this time she may take Aleve as needed. She has a history of also visual spasms and has seen gastroenterology and had EGD done. She will come back for follow-up in October Medications: New atenolol 25 mg PO DAILY 90 tabs 0RF Coding Level of Care Code Est Pt Level 3 (26072) Diagnoses Hypertension, essential I10 Ankylosing spondylitis of lumbosacral region M45.7 Ankylosing spondylitis location: lumbosacral region Esophageal spasm K22.4
[2023-07-10 15:04] VITALS: BP 148/80; PULSE 85; O2SAT 98; BMI 28.1
== END 2023-07-10 15:40 | disposition home or self-care (01) ==
PROVIDERS: PCP Internal Medicine; Visit Provider Internal Medicine
DX: I10 Essential (primary) hypertension (principal); M45.7 Ankylosing spondylitis of lumbosacral region; K22.4 Dyskinesia of esophagus
CPT/HCPCS: 99213

== ENCOUNTER 2023-07-22 09:42 | Outpatient (AMB) | payer BC, SELFPAY ==
[2023-07-22 10:05] VITALS: BP 140/90; PULSE 72; TEMP 36.8; O2SAT 97; BMI 28.0
--- NOTE | 2023-07-22 10:05 | AM.OFFWIN_ITS ---
Intake Vital Signs 07/22/23 10:05 Height 5 ft 5 in Weight 168 lb BMI 28.0 BP 140/90 H Blood Pressure Location Rt brachial Position Sitting Pulse 72 Pulse Source Pulse Oximeter Temp 98.3 F Temp Source Oral Pulse Oximetry (%) 97 Intake Visit Reasons: EST/ possible reaction to medication(lobby) Intake Note: pt is here for c/o gurgling in chest after starting atenolol Patient Tobacco Use Status: Former Tobacco user Quit Date: Back in High School Allergies No Known Allergies [No Known Allergies*] Allergy (Verified 07/22/23 10:06) Do you need a note to return to daycare/school/sports/work: Yes HPI EST/ possible reaction to medication(lobby) HPI Details 63-year-old female patient presents toda y with a 1 week history of chest congestion, wheezing, productive cough with thick green sputum. Has tried albuterol and mucinex without relief. Started taking atenolol last week and is not sure if symptoms are related to this. Denies any chest pain, palpitations, dizziness. PFSH Medical History COVID-19 vaccine series completed Osteoarthritis Hiatal hernia IBS (irritable bowel syndrome) GERD (gastroesophageal reflux disease) Surgical History Hx of oral surgery History of nasal septoplasty Hx of section Hx of colonoscopy H/O esophagogastroduodenoscopy Family History Mother Breast cancer Colon polyps High blood pressure Hypothyroid Father CVD (cardiovascular disease) Brother H/O heart artery stent Cancer Substance use disorder Social History Housing: House Are you a primary career consultant to a significant other at home: No Do you presently have visiting nurse or other home services: No Alcohol intake: current Alcohol intake frequency: a few times a month Alcohol type: wine Patient Tobacco Use Status: Former Tobacco user Quit Date: Back in High School Tobacco use type: Cigarette Years Smoked: in high school e-Cigarette/Vaping Use: Never Used Second Hand Smoke Exposure: No service: No Current occupational status: employed Cognitive needs: No Hearing needs: No Vision needs: Yes Review of Systems Const All systems reviewed & are unremarkable except as noted in HPI and below Physical Exam Vital Signs: Last Vital Signs Temp 98.3 F 07/22/23 10:05 Pulse 72 07/22/23 10:05 BP 140/90 H 07/22/23 10:05 Pulse Ox 97 07/22/23 10:05 BMI result Body Mass Index 28.0 Const General: cooperative and no acute distress Nutritional Appearance: average body habitus HEENT Head: Yes normal to inspection and Yes normocephalic Ears: hearing grossly normal bilaterally General nose exam: Normal external nose present Neck Neck: Yes no lymphadenopathy and Yes no JVD Resp Effort & Inspection: normal respiratory effort and able to speak in complete sentences Auscultation: wheezes upper bilaterally Cardio Jugular venous distension: no JVD Palpation: normal PMI Rate: regular rate Rhythm: regular rhythm Skin General skin exam: no rashes or lesions noted Extrem General: Yes capillary refill normal and Yes no clubbing, cyanosis or edema Psych Appearance: grossly normal Mental Status: mental status grossly normal Speech and movement: Normal speech and movement present Assessment & Plan Assessment & Plan (1) Upper respiratory tract infection: Code(s): J06.9 - Acute upper respiratory infection, unspecified Qualifiers: URI type: unspecified URI Qualified Code(s): J06.9 - Acute upper respiratory infection, unspecified Plan: Will start on azithromycin and short course of prednisone. Reviewed indications, use, possible side effects of medications. Has taken Prednisone in the past and done well on this. Advised ongoing use of Mucinex and albuterol as needed. Advised to return to the clinic if she does not improve with treatment, or if symptoms worsen/new symptoms develop. She verbalizes understanding and agrees to plan. Medications: New azithromycin For 250 mg dose pack: take 500 mg today (day 1), then 250 mg for 4 days (days 2-5) PO 6 tabs 0RF J06.9 - Acute upper respiratory infection, unspecified prednisone 20 mg PO BID 6 tabs 0RF 3 days Coding Level of Care Code Est Pt Level 3 (50637) Diagnoses Upper respiratory tract infection, unspecified type J06.9 URI type: unspecified URI
== END 2023-07-22 10:58 | disposition home or self-care (01) ==
PROVIDERS: PCP Internal Medicine; Visit Provider Nurse Practitioner Family
DX: J06.9 Acute upper respiratory infection, unspecified (principal)
CPT/HCPCS: 99213

== ENCOUNTER 2023-09-10 09:48 | Outpatient (AMB) | payer BC, SELFPAY ==
--- NOTE | 2023-09-10 10:02 | MHC.PC.OV ---
Vital Signs 09/10/23 10:03 Height 5 ft 5 in Weight 168 lb 2 oz BMI 28.0 BP 148/88 H Blood Pressure Location Lt brachial Position Sitting Pulse 67 Pulse Source Pulse Oximeter Pulse Oximetry (%) 98 Oxygen Delivery Method Room Air Intake Visit Reasons: URI not improving Allergies No Known Allergies [No Known Allergies*] Allergy (Verified 09/10/23 10:03) Medication List - Last Reconciled 09/10/23 by Lizeth South MD albuterol sulfate 90 mcg/actuation (Ventolin HFA) 1 inh inhalation Q4-6H PRN atenolol 25 mg PO DAILY cholecalciferol (vitamin D3) (Vitamin D3) 25 mcg PO DAILY pantoprazole 20 mg PO DAILY Tobacco use date assessed: 09/10/23 Dental Screening Dental Screen Date: 09/10/23 Did you have a dental visit in the last 12 months?: Yes Did you have a dental problem in the last 6 months where you did not have access to dental care?: No Was dental information given to patient?: Patient has dentist HPI URI not improving HPI Details Patient is 63-year-old female who was seen in walk-in clinic July for upper respiratory tract infection She was treated with azithromycin and prednisone which did not help. Patient says that she continued to have symptoms until recently she started to feel better She also found out that 2 of her grandchildren had RSV but that was after she was symptomatic Currently patient is using albuterol every 4-6 hour which is helping and she is coughing which is dry and is getting better On examination her lungs are clear I have sent refill on prednisone 10 mg patient may take half a tablet for a week or full tablet Albuterol inhaler was refilled. [facility], [facility] Medical History COVID-19 vaccine series completed Osteoarthritis Hiatal hernia IBS (irritable bowel syndrome) GERD (gastroesophageal reflux disease) Surgical History Hx of oral surgery History of nasal septoplasty Hx of section Hx of colonoscopy H/O esophagogastroduodenoscopy Family History Mother Breast cancer Colon polyps High blood pressure Hypothyroid Father CVD (cardiovascular disease) Brother H/O heart artery stent Cancer Substance use disorder Social History Housing: House Are you a primary home care music therapist to a significant other at home: No Do you presently have visiting nurse or other home services: No Alcohol intake: current Alcohol intake frequency: a few times a month Alcohol type: wine Patient Tobacco Use Status: Former Tobacco user Quit Date: Back in High School Tobacco use type: Cigarette Years Smoked: in high school e-Cigarette/Vaping Use: Never Used Second Hand Smoke Exposure: No service: No Current occupational status: employed Cognitive needs: No Hearing needs: No Vision needs: Yes Questionnaire Thrive Questionnaire Date Thrive assessed: 07/10/23 AUDIT C Alcohol Use Questionnaire (AUDIT-C) 1. How often do you have a drink containing alcohol?: 2-4 times a month 2. How many drinks containing alcohol do you have on a typical day when you are drinking?: 1 or 2 Total Score: 2 Score Reviewed/Action Taken: Yes HEAVENLY-7 AMB Questionnaire HEAVENLY-7 Date HEAVENLY - 7 assessed: 07/10/23 Source: Developed by Drs. Jair Monique, Angela Velasco, Daniel Whiteside and colleagues, with an educational lane from [employer]. Review of Systems Const Denies chills and Denies fever(s) ENT Denies epistaxis and Denies nasal discharge Card Denies chest pain Resp Denies chest congestion and Denies hemoptysis GI Denies diarrhea and Denies nausea Skin/Breast Denies rash Neuro Reports no additional complaints Psych Reports no additional complaints Endo Reports no additional complaints Physical exam (Primary Care) Vital Signs: Last Vital Signs Pulse 67 09/10/23 10:03 BP 148/88 H 09/10/23 10:03 Pulse Ox 98 09/10/23 10:03 Oxygen Delivery Method Room Air 09/10/23 10:03 BMI result Body Mass Index 28.0 Tobacco/Smoking Status: Tobacco use Status Tobacco use date assessed 09/10/23 09/10/23 10:07 Patient Tobacco Use Status Former Tobacco user 09/10/23 10:07 Tobacco use type Cigarette 09/10/23 10:07 e-Cigarette/Vaping Use Never Used 09/10/23 10:07 Thrive Assessment: Date of Thrive Assessment Date Thrive assessed 07/10/23 09/10/23 10:07 Const General: cooperative, comfortable and no acute distress Orientation/consciousness: patient oriented x3 HENMT Head: Yes normocephalic Eyes General: appearance normal, both eyes and all related structures Neck Neck: Yes supple Resp Other: No wheezing Effort & Inspection: normal respiratory effort, no cough and no stridor Cardio Rhythm: regular rhythm Heart sounds: S1 normal heart sound present and S2 normal heart sound present Skin General skin exam: turgor normal Neuro General: patient oriented x3, tone normal and moves all extremities Extrem Right lower extremity: no edema Left lower extremity: no edema Assessment and Plan Assessment & Plan (1) Acute bronchitis: Code(s): J20.9 - Acute bronchitis, unspecified Qualifiers: Bronchitis organism: other organism Qualified Code(s): J20.8 - Acute bronchitis due to other specified organisms Plan Patient is 63-year-old female who was seen in walk-in clinic July for upper respiratory tract infection She was treated with azithromycin and prednisone which did not help. Patient says that she continued to have symptoms until recently she started to feel better She also found out that 2 of her grandchildren had RSV but that was after she was symptomatic Currently patient is using albuterol every 4-6 hour which is helping and she is coughing which is dry and is getting better On examination her lungs are clear I have sent refill on prednisone 10 mg patient may take half a tablet for a week or full tablet Albuterol inhaler was refilled. Medications: New prednisone 10 mg PO DAILY 5 days 5 tabs 0RF Refilled albuterol sulfate 90 mcg/actuation (Ventolin HFA) 1 inh inhalation Q4-6H PRN 8.5 grams 2RF shortness of breath or wheezing Coding Level of Care Code Est Pt Level 3 (95833) Diagnoses Acute bronchitis due to other specified organisms J20.8 Bronchitis organism: other organism
[2023-09-10 10:03] VITALS: BP 148/88; PULSE 67; O2SAT 98; BMI 28.0
== END 2023-09-10 12:37 | disposition home or self-care (01) ==
PROVIDERS: PCP Internal Medicine; Visit Provider Internal Medicine
DX: J20.8 Acute bronchitis due to other specified organisms (principal)
CPT/HCPCS: 99213

== ENCOUNTER 2023-10-07 16:01 | Outpatient (AMB) | payer BC, SELFPAY ==
[2023-10-07 16:11] VITALS: BP 170/100; PULSE 68; TEMP 36.4; O2SAT 99; BMI 28.3
--- NOTE | 2023-10-07 16:11 | MHC.OFFWIV ---
Intake Vital Signs 10/07/23 16:11 Height 5 ft 5 in Weight 170 lb BMI 28.3 BP 170/100 H Blood Pressure Location Lt brachial Position Sitting Pulse 68 Pulse Source Pulse Oximeter Temp 97.6 F Temp Source Temporal Artery Scan Pulse Oximetry (%) 99 Oxygen Delivery Method Room Air Intake Visit Reasons: EP wheezing cough since Nov Intake Note: pt is here today for wheezing cough started Nov Patient Tobacco Use Status: Former Tobacco user Quit Date: Back in High School Allergies No Known Allergies [No Known Allergies*] Allergy (Verified 10/07/23 16:15) Do you need a note to return to daycare/school/sports/work: Yes HPI HPI Comments History of Present Illness Details Patient presents to the walk-in today for sick visit. She reports cough and wheezing since July. She has been seen in the walk-in and by her primary care doctor, taking Z-Kelvin and two courses of prednisone but wheezing and cough persists. She is using albuterol inhaler 4 times daily with improvement for a short time. Grandchildren were positive for RSV over 1 month ago, unsure if she was positive at any time. Denies fever, headaches, earaches, sore throat, body aches, chills, chest pain, peripheral edema. Patient was started on atenolol about the time this wheezing cough started but has been evaluated by her primary care doctor since and told it is unrelated. She has not been referred to pulmonology, reached out to the primary care today and was advised to seek treatment in the walk-in. PFSH Medical History COVID-19 vaccine series completed Osteoarthritis Hiatal hernia IBS (irritable bowel syndrome) GERD (gastroesophageal reflux disease) Surgical History Hx of oral surgery History of nasal septoplasty Hx of section Hx of colonoscopy H/O esophagogastroduodenoscopy Family History Mother Breast cancer Colon polyps High blood pressure Hypothyroid Father CVD (cardiovascular disease) Brother H/O heart artery stent Cancer Substance use disorder Social History Housing: House Are you a primary rn care transition to a significant other at home: No Do you presently have visiting nurse or other home services: No Alcohol intake: current Alcohol intake frequency: a few times a month Alcohol type: wine Patient Tobacco Use Status: Former Tobacco user Quit Date: Back in High School Tobacco use type: Cigarette Years Smoked: in high school e-Cigarette/Vaping Use: Never Used Second Hand Smoke Exposure: No service: No Current occupational status: employed Cognitive needs: No Hearing needs: No Vision needs: Yes Review of Systems Const All systems reviewed & are unremarkable except as noted in HPI and below Physical Exam Vital Signs: Last Vital Signs Temp 97.6 F 10/07/23 16:11 Pulse 68 10/07/23 16:11 BP 170/100 H 10/07/23 16:11 Pulse Ox 99 10/07/23 16:11 Oxygen Delivery Method Room Air 10/07/23 16:11 BMI result Body Mass Index 28.3 General: awake, alert, oriented. Answers questions appropriately. Fully engaged in examination. Skin: warm, dry, intact HEENT: TMs intact bilaterally, without erythema or exudate. Posterior pharynx without erythema or exudate. Sclera without icterus or injection. Cardiac: External chest normal in appearance. Respiratory: + dry cough. Inspiratory wheezing left left superior and inferior lung Abdomen: without gross distension. Neurological: Oriented to person, place, time and situation. Thought process intact. Psychiatric: Appropriate mood and affect. Good judgment and insight. Results Reviewed Results Reviewed: Chest x-ray reading independently reviewed: No effusion or infiltrate Assessment & Plan Assessment & Plan (1) Cough: Code(s): R05.9 - Cough, unspecified Plan Cough with wheezing, chronic Chest x-ray ordered and independently reviewed: No effusion or infiltrate Prednisone 40 mg p.o. daily x5 days Continue with albuterol inhaler as prescribed. Patient declines refill today Referral placed for pulmonology Rest, drink plenty of fluids. Follow up with pcp or in clinic for any new or worsening symptoms. Go to ER for shortness of breath, chest pain, palpitations, weakness, dizziness. Go to the ER if using inhaler more than prescribed. All questions and concerns were answered patient agrees with the plan Orders: Orders XR chest 2V Today R05.9 - Cough, unspecified Referrals Pulmonology Referral R05.9 - Cough, unspecified Medications: New prednisone 40 mg (2 x 20 mg) PO DAILY 10 tabs 0RF 5 days Coding Level of Care Code Est Pt Level 4 (62851) Diagnoses Cough R05.9
== END 2023-10-07 16:47 | disposition home or self-care (01) ==
PROVIDERS: PCP Internal Medicine; Visit Provider Registered Nurse Emergency
DX: R05.9 Cough, unspecified (principal)
CPT/HCPCS: 99214

== ENCOUNTER 2023-10-07 16:27 | Outpatient (REF) | payer BC, SELFPAY ==
--- NOTE | ~2023-10-07 | XR_ITS ---
EXAMINATION: XR CHEST CLINICAL INFORMATION: Cough. COMPARISON: None available. TECHNIQUE: 2 views of the chest were obtained. FINDINGS: No significant abnormality is noted involving the heart, lungs, mediastinum, bony thorax or soft tissues. XR/XR chest 2V IMPRESSION: Unremarkable chest examination.
== END 2023-10-07 16:28 | disposition home or self-care (01) ==
LOC: HO.HMGCX 16:27
PROVIDERS: PCP Internal Medicine; Visit Provider Registered Nurse Emergency
DX: R05.9 Cough, unspecified (principal)
CPT/HCPCS: 71046

== ENCOUNTER 2023-10-11 08:24 | Outpatient (AMB) | payer BC, SELFPAY ==
--- NOTE | 2023-10-11 09:24 | A.OFFPC_ITS ---
Vital Signs 10/11/23 09:24 Height 5 ft 5 in Intake Visit Reasons: Discuss Pulm referral-[facility] [phone] Allergies No Known Allergies [No Known Allergies*] Allergy (Verified 10/11/23 09:24) Medication List - Last Reconciled 10/11/23 by Lizeth South MD albuterol sulfate 90 mcg/actuation (Ventolin HFA) 1 inh inhalation Q4-6H PRN amlodipine 10 mg PO DAILY Breo Ellipta 200-25 mcg/dose (fluticasone furoate-vilanterol) 1 inh inhalation DAILY 30 days NS cholecalciferol (vitamin D3) (Vitamin D3) 25 mcg PO DAILY pantoprazole 20 mg PO DAILY prednisone 40 mg (2 x 20 mg) PO DAILY 5 days Tobacco use date assessed: 10/11/23 Dental Screening Dental Screen Date: 10/11/23 Did you have a dental visit in the last 12 months?: Yes Did you have a dental problem in the last 6 months where you did not have access to dental care?: No Was dental information given to patient?: Patient has dentist HPI Discuss Pulm referral-[facility] [phone] HPI Details Patient is 63-year-old female who is struggling with respiratory symptoms It all started early September lead August when she was exposed to RSV infection Patient has gone through prednisone course and currently she is taking and other course through walk-in clinic She is on 40 mg of prednisone, I have told her to take 20 mg tomorrow than 10 and then 5 and then stop I did sent Breo inhaler for the patient which she has not started She was also started on atenolol for blood pressure I am stopping that as it may be making her wheezing worse Instead patient will take amlodipine 10 mg Once her wheezing is resolved and her cough is better she can try atenolol again. For now she need to start the Breo inhaler 1 in the morning once at night for a week and then once in the morning If she continued to have symptoms then she will be seeing of vascular specialists [facility] Medical History COVID-19 vaccine series completed Osteoarthritis Hiatal hernia IBS (irritable bowel syndrome) GERD (gastroesophageal reflux disease) Surgical History Hx of oral surgery History of nasal septoplasty Hx of section Hx of colonoscopy H/O esophagogastroduodenoscopy Family History Mother Breast cancer Colon polyps High blood pressure Hypothyroid Father CVD (cardiovascular disease) Brother H/O heart artery stent Cancer Substance use disorder Social History Housing: House Are you a primary medicare coordinator to a significant other at home: No Do you presently have visiting nurse or other home services: No Alcohol intake: current Alcohol intake frequency: a few times a month Alcohol type: wine Patient Tobacco Use Status: Former Tobacco user Quit Date: Back in High School Tobacco use type: Cigarette Years Smoked: in high school e-Cigarette/Vaping Use: Never Used Second Hand Smoke Exposure: No service: No Current occupational status: employed Cognitive needs: No Hearing needs: No Vision needs: Yes Questionnaire Thrive Questionnaire Date Thrive assessed: 07/10/23 AUDIT C Alcohol Use Questionnaire (AUDIT-C) 1. How often do you have a drink containing alcohol?: 2-4 times a month 2. How many drinks containing alcohol do you have on a typical day when you are drinking?: 1 or 2 Total Score: 2 Score Reviewed/Action Taken: Yes HEAVENLY-7 AMB Questionnaire HEAVENLY-7 Date HEAVENLY - 7 assessed: 07/10/23 Source: Developed by Drs. Jair Monique, Angela Velasco, Daniel Whiteside and colleagues, with an educational lane from [employer]. Review of Systems Const Denies chills and Denies fever(s) ENT Denies epistaxis and Denies nasal discharge Card Denies chest pain Resp Denies chest congestion and Denies hemoptysis GI Denies diarrhea and Denies nausea Skin/Breast Denies rash Neuro Reports no additional complaints Psych Reports no additional complaints Endo Reports no additional complaints Physical exam (Primary Care) Tobacco/Smoking Status: Tobacco use Status Tobacco use date assessed 10/11/23 10/11/23 09:25 Patient Tobacco Use Status Former Tobacco user 10/11/23 09:25 Tobacco use type Cigarette 10/11/23 09:25 e-Cigarette/Vaping Use Never Used 10/11/23 09:25 Thrive Assessment: Date of Thrive Assessment Date Thrive assessed 07/10/23 10/11/23 09:25 Telehealth Telehealth Location of provider rendering services: practice address Location of patient: address on file Patient Identification confirmed using: Name, : Yes Telehealth method: video Patient verbally consented to treatment: Yes Patient verbally consented to billing insurance company: Yes Patient informed of any privacy concerns related to visit: Yes Minutes spent on Phone/Video with Pt.: 15 Assessment and Plan Assessment & Plan (1) Wheezing: Code(s): R06.2 - Wheezing (2) Cough: Code(s): R05.9 - Cough, unspecified Qualifiers: Cough type: subacute Qualified Code(s): R05.2 - Subacute cough (3) Hypertension, essential: Code(s): I10 - Essential (primary) hypertension Plan Patient is 63-year-old female who is struggling with respiratory symptoms It all started early September lead August when she was exposed to RSV infection Patient has gone through prednisone course and currently she is taking and other course through walk-in clinic She is on 40 mg of prednisone, I have told her to take 20 mg tomorrow than 10 and then 5 and then stop I did sent Breo inhaler for the patient which she has not started She was also started on atenolol for blood pressure I am stopping that as it may be making her wheezing worse Instead patient will take amlodipine 10 mg Once her wheezing is resolved and her cough is better she can try atenolol again. For now she need to start the Breo inhaler 1 in the morning once at night for a week and then once in the morning If she continued to have symptoms then she will be seeing of vascular specialists Medications: New amlodipine 10 mg PO DAILY 30 tabs 0RF Discontinued atenolol Discontinued Reason: Doctor's Order 25 mg PO DAILY 90 tabs 0RF Coding Level of Care Code Tele Est Pt Level 3 (11478) Diagnoses Wheezing R06.2 Subacute cough R05.2 Cough type: subacute Hypertension, essential I10
== END 2023-10-11 12:28 | disposition home or self-care (01) ==
LOC: HO.HMGC 08:24
PROVIDERS: PCP Internal Medicine; Visit Provider Internal Medicine
DX: R06.2 Wheezing (principal); R05.2 Subacute cough; I10 Essential (primary) hypertension
CPT/HCPCS: 99213

== ENCOUNTER 2023-11-01 09:39 | Outpatient (AMB) | payer BC, SELFPAY ==
[2023-11-01 09:47] VITALS: BP 160/88; PULSE 67; O2SAT 98; BMI 27.9
--- NOTE | 2023-11-01 09:47 | MHC.PC.OV ---
Vital Signs 11/01/23 09:47 Height 5 ft 5 in Weight 167 lb 8 oz BMI 27.9 BP 160/88 H Blood Pressure Location Rt brachial Position Sitting Pulse 67 Pulse Source Pulse Oximeter Pulse Oximetry (%) 98 Oxygen Delivery Method Room Air Intake Visit Reasons: Follow BP Allergies amlodipine Adverse Reaction (Intermediate, Verified 11/01/23 09:57) ankle swollen atenolol Adverse Reaction (Intermediate, Uncoded 10/28/23 11:52) wheezing Medication List - Last Reconciled 11/01/23 by Lizeth South MD albuterol sulfate 90 mcg/actuation (Ventolin HFA) 1 inh inhalation Q4-6H PRN amlodipine 10 mg PO DAILY Breo Ellipta 200-25 mcg/dose (fluticasone furoate-vilanterol) 1 inh inhalation DAILY 30 days NS cholecalciferol (vitamin D3) (Vitamin D3) 25 mcg PO DAILY losartan 25 mg PO DAILY pantoprazole 20 mg PO DAILY Tobacco use date assessed: 11/01/23 Dental Screening Dental Screen Date: 11/01/23 Did you have a dental visit in the last 12 months?: Yes Did you have a dental problem in the last 6 months where you did not have access to dental care?: No Was dental information given to patient?: Patient has dentist HPI Follow BP HPI Details Patient is 63-year-old female came in for her regular follow-up appointment Patient could not tolerate amlodipine as it caused swelling of her ankle We did try atenolol in the past as well which caused wheezing however patient says that she was sick at that time so she is not sure if it was because of medication Currently patient is on Breo inhaler for wheezing that she developed after bronchitis, she is almost done with inhaler and wheezing has improved Patient will stop once inhaler runs out and see if she is back to her baseline Currently for blood pressure she is taking losartan 25 mg Her blood pressure is elevated today however in the morning it was 120 systolic Patient says that she will continue to monitor and if needed she will double the dose to 50 mg Patient will keep in touch with me through patient portal GERD is stable with pantoprazole 20 mg. Labs are due order placed to be done fasting Follow-up 3-1/2 months PFS Medical History COVID-19 vaccine series completed Osteoarthritis Hiatal hernia IBS (irritable bowel syndrome) GERD (gastroesophageal reflux disease) Surgical History Hx of oral surgery History of nasal septoplasty Hx of section Hx of colonoscopy H/O esophagogastroduodenoscopy Family History Mother Breast cancer Colon polyps High blood pressure Hypothyroid Father CVD (cardiovascular disease) Brother H/O heart artery stent Cancer Substance use disorder Social History Housing: House Are you a primary critical care paramedic to a significant other at home: No Do you presently have visiting nurse or other home services: No Alcohol intake: current Alcohol intake frequency: a few times a month Alcohol type: wine Patient Tobacco Use Status: Former Tobacco user Quit Date: Back in High School Tobacco use type: Cigarette Years Smoked: in high school e-Cigarette/Vaping Use: Never Used Second Hand Smoke Exposure: No service: No Current occupational status: employed Cognitive needs: No Hearing needs: No Vision needs: Yes Questionnaire PHQ-9 Over the last 2 weeks, how often have you been bothered by any of the following problems? 1. Little interest or pleasure in doing things: several days 2. Feeling down, depressed, or hopeless: not at all 3. Trouble falling or staying asleep, or sleeping too much: several days 4. Feeling tired or having little energy: several days 5. Poor appetite or overeating: not at all 6. Feeling bad about yourself - or that you are a failure or have let yourself or your family down: not at all 7. Trouble concentrating on things, such as reading the newspaper or watching television: not at all 8. Moving or speaking so slowly that other people could have noticed. Or the opposite - being so fidgety or restless that you have been moving around a lot more than usual: not at all 9. Thoughts that you would be better off or of hurting yourself in some way: not at all Total score: 3 Depression Screening Interpretation: Negative Depression Screening Done: Yes 45563 - PHQ-9 Billing: Yes Source: Developed by Drs. Jair Monique, Daniel Nagy and colleagues, with an educational lane from [employer] Thrive Questionnaire Date Thrive assessed: 11/01/23 I am a: Patient What is your living situation today?: I have a steady place to live Within the past 12 months, did the food you bought not last and you didn't have the money to get more?: Never true Within the past 12 months, did you worry whether your food would run out before you got money to buy more?: Never true Do you have trouble paying for medicines?: No Do you have trouble getting transportation to medical appointments?: No Do you have trouble paying your heating and electricity bill?: No Do you have trouble taking care of your child, family member or friend?: No Do you have trouble with day-to-day activities such as bathing, preparing meals, shopping, managing finances, etc.?: No Are you currently unemployed and looking for a job?: No Are you interested in more education?: No Please select the resources that you would like help with: None Currently or been in a relationship where the following occur: no concerns reported THRIVE Score: 0 AUDIT C Alcohol Use Questionnaire (AUDIT-C) 1. How often do you have a drink containing alcohol?: Monthly or less 2. How many drinks containing alcohol do you have on a typical day when you are drinking?: 1 or 2 3. How often do you have six or more drinks on one occasion?: Never Total Score: 1 Score Reviewed/Action Taken: Yes HEAVENLY-7 AMB Questionnaire HEAVENLY-7 Date HEAVENLY - 7 assessed: 08/07/23 Feeling nervous, anxious, or on edge: 1 = Several days Not being able to stop or control worryin = Several days Worrying too much about different things: 2 = More than half the days Trouble relaxin = Several days Being so restless that it is hard to sit still: 0 = Not at all Becoming easily annoyed or irritable: 0 = Not at all Feeling afraid as if something awful might happen: 0 = Not at all Total HEAVENLY-7 score (0-4 normal; 5-9 mild; 10-14 moderate; 15-21 severe): 5 Source: Developed by Angela Rogers Kurt Kroenke and colleagues, with an educational lane from [employer] HEAVENLY-7 Assessment Billing HEAVENLY-7 Assessment Tool: HEAVENLY-7 Assessment 72452 Review of Systems Const Denies chills and Denies fever(s) ENT Denies epistaxis and Denies nasal discharge Card Denies chest pain Resp Denies chest congestion, Denies cough and Denies hemoptysis GI Denies diarrhea and Denies nausea Skin/Breast Denies rash Neuro Reports no additional complaints Psych Reports no additional complaints Endo Reports no additional complaints Physical exam (Primary Care) Vital Signs: Last Vital Signs Pulse 67 11/01/23 09:47 BP 160/88 H 11/01/23 09:47 Pulse Ox 98 11/01/23 09:47 Oxygen Delivery Method Room Air 11/01/23 09:47 BMI result Body Mass Index 27.9 Tobacco/Smoking Status: Tobacco use Status Tobacco use date assessed 11/01/23 11/01/23 09:50 Patient Tobacco Use Status Former Tobacco user 11/01/23 09:50 Tobacco use type Cigarette 11/01/23 09:50 e-Cigarette/Vaping Use Never Used 11/01/23 09:50 PHQ-9: PHQ-9 Score PHQ-9: Total score 3 11/01/23 10:10 Depression Screening Interpretation: Negative Thrive Assessment: Date of Thrive Assessment Date Thrive assessed 11/01/23 11/01/23 10:10 Currently or been in a relationship where the following occur: no concerns reported Const General: cooperative, comfortable and no acute distress Orientation/consciousness: patient oriented x3 HENMT Head: Yes normocephalic Eyes General: appearance normal, both eyes and all related structures Neck Neck: Yes supple Resp Effort & Inspection: normal respiratory effort, no cough and no stridor Cardio Rhythm: regular rhythm Heart sounds: S1 normal heart sound present and S2 normal heart sound present Skin General skin exam: turgor normal Neuro General: patient oriented x3, tone normal and moves all extremities Extrem Right lower extremity: no edema Left lower extremity: no edema Assessment and Plan Assessment & Plan (1) Thyroid nodule: Code(s): E04.1 - Nontoxic single thyroid nodule (2) Hypertension, essential: Code(s): I10 - Essential (primary) hypertension (3) GERD (gastroesophageal reflux disease): Code(s): K21.9 - Gastro-esophageal reflux disease without esophagitis Qualifiers: Esophagitis presence: without esophagitis (4) Pre-diabetes: Code(s): R73.03 - Prediabetes (5) Vitamin D deficiency: Code(s): E55.9 - Vitamin D deficiency, unspecified (6) Muscle cramp, nocturnal: Code(s): R25.2 - Cramp and spasm (7) Polyuria: Code(s): R35.89 - Other polyuria Plan Patient is 63-year-old female came in for her regular follow-up appointment Patient could not tolerate amlodipine as it caused swelling of her ankle We did try atenolol in the past as well which caused wheezing however patient says that she was sick at that time so she is not sure if it was because of medication Currently patient is on Breo inhaler for wheezing that she developed after bronchitis, she is almost done with inhaler and wheezing has improved Patient will stop once inhaler runs out and see if she is back to her baseline Currently for blood pressure she is taking losartan 25 mg Her blood pressure is elevated today however in the morning it was 120 systolic Patient says that she will continue to monitor and if needed she will double the dose to 50 mg Patient will keep in touch with me through patient portal GERD is stable with pantoprazole 20 mg. Labs are due order placed to be done fasting History of thyroid nodule, we need to follow up on that Also complaining of toe cramping at night off and on, I have added magnesium to her labs Meanwhile I would recommend to push more fluids Having polyuria for the past couple of days however have no dysuria or bleeding I have added UA to labs as well Follow-up 3-1/2 months Orders: Orders Complete Blood Count Auto Diff Today E04.1 - Nontoxic single thyroid nodule, E55.9 - Vitamin D deficiency, unspecified, I10 - Essential (primary) hypertension, K21.9 - Gastro-esophageal reflux disease without esophagitis, R73.03 - Prediabetes Comprehensive [place]. Panel Fast Today E04.1 - Nontoxic single thyroid nodule, E55.9 - Vitamin D deficiency, unspecified, I10 - Essential (primary) hypertension, K21.9 - Gastro-esophageal reflux disease without esophagitis, R73.03 - Prediabetes Lipid Panel Today E04.1 - Nontoxic single thyroid nodule, E55.9 - Vitamin D deficiency, unspecified, I10 - Essential (primary) hypertension, K21.9 - Gastro-esophageal reflux disease without esophagitis, R73.03 - Prediabetes Vitamin D 25-OH (D2 and D3) Today E04.1 - Nontoxic single thyroid nodule, E55.9 - Vitamin D deficiency, unspecified, I10 - Essential (primary) hypertension, K21.9 - Gastro-esophageal reflux disease without esophagitis, R73.03 - Prediabetes TSH reflex Free T4 Today E04.1 - Nontoxic single thyroid nodule, E55.9 - Vitamin D deficiency, unspecified, I10 - Essential (primary) hypertension, K21.9 - Gastro-esophageal reflux disease without esophagitis, R73.03 - Prediabetes Magnesium Today R25.2 - Cramp and spasm UA CC w/rflx Micro + Cult Today R35.89 - Other polyuria Hemoglobin A1c Today E04.1 - Nontoxic single thyroid nodule, E55.9 - Vitamin D deficiency, unspecified, I10 - Essential (primary) hypertension, K21.9 - Gastro-esophageal reflux disease without esophagitis, R73.03 - Prediabetes US thyroid Today E04.1 - Nontoxic single thyroid nodule Medications: Discontinued amlodipine Discontinued Reason: Doctor's Order 10 mg PO DAILY 30 tabs 0RF Coding Level of Care Code Est Pt Level 4 (54395) Diagnoses Thyroid nodule E04.1 Hypertension, essential I10 GERD (gastroesophageal reflux disease) K21.9 Esophagitis presence: without esophagitis Pre-diabetes R73.03 Vitamin D deficiency E55.9 Muscle cramp, nocturnal R25.2 Polyuria R35.89 Additional Codes HEAVENLY-7 Assessment Billing - HEAVENLY-7 Assessment Tool: HEAVENLY-7 Assessment [id number] ([id number])
== END 2023-11-01 10:11 | disposition home or self-care (01) ==
PROVIDERS: PCP Internal Medicine; Visit Provider Internal Medicine
DX: E04.1 Nontoxic single thyroid nodule (principal); I10 Essential (primary) hypertension; K21.9 Gastro-esophageal reflux disease without esophagitis; R73.03 Prediabetes; E55.9 Vitamin D deficiency, unspecified; R25.2 Cramp and spasm; R35.89 Other polyuria
CPT/HCPCS: 99214

== ENCOUNTER 2023-11-06 06:01 | Outpatient (REF) | payer BC, SELFPAY ==
[2023-11-06 11:11] LABS: MANUAL DIFF FLAG NO
[2023-11-06 11:15] LABS: Basophils Absolute Auto 0.1 X10*3/uL (0.0-0.2); Basophils Percent Auto 1.8 % (0-2); Eosinophils Absolute Auto 0.4 X10*3/uL (0.0-0.4); Eosinophils Percent Auto 6.2 % (0-4); Hematocrit 44.1 % (37.0-47.0); Hemoglobin 14.6 g/dl (12.0-16.0); Imm Gran Abs Auto 0.01 X10*3/uL (0.00-0.03); Imm Gran Pct Auto 0.2 % (0.0-0.4); Lymphocytes Absolute Auto 1.7 X10*3/uL (1.2-4.9); Lymphocytes Percent Auto 29.6 % (20-40); Mean Corpuscular HGB Conc 33.1 g/dl (31.0-35.0); Mean Corpuscular Hemoglobin 29.5 pg (27.0-33.0); Mean Corpuscular Volume 89.1 fL (80.0-98.0); Mean Platelet Volume 10.1 fL (9.4-12.3); Monocytes Absolute Auto 0.5 X10*3/uL (0.1-1.2); Monocytes Percent Auto 9.4 % (2-11); Neutrophils Percent Auto 52.8 % (45-73); Platelet Count 380 X10*3/uL (160-400); Red Blood Count 4.95 X10*6/uL (4.20-5.50); Red Cell Distribution Width 12.3 % (11.0-16.0); White Blood Count 5.7 X10*3/uL (4.8-10.8)
[2023-11-06 11:23] LABS: Estimated Average Glucose 111 mg/dL; Hemoglobin A1c % 5.5 % (<6.0)
[2023-11-06 11:24] LABS: Appearance Urine Clear; Color Urine Yellow; Glucose Urine UA Negative (Negative); Leukocyte Esterase Urine Moderate (2+) (Negative); Nitrite Urine Negative (Negative); UMIC TRIGGER UACC YES; Urine Blood Negative (Negative); Urine Ketones Negative (Negative); Urine Protein Negative (Neg-Trace)
[2023-11-06 11:32] LABS: Bacteria Urine None Seen (None Seen); Hyaline Casts Urine 0-2 /LPF (0-2); RBC Urine 0-2 /HPF (0-2); Squamous Epithelial Cell Urine 0-2 /HPF (0-2); UACC Culture Trigger YES
[2023-11-06 14:02] LABS: Alanine Aminotransferase 25 U/L (0-31); Albumin Level 4.4 g/dL (3.5-5.0); Alkaline Phosphatase 51 U/L (39-117); Anion Gap 8 (12-20); Aspartate Amino Transferase 18 U/L (5-31); Bilirubin Total 0.6 mg/dL (0.0-1.0); Blood Urea Nitrogen 13 mg/dL (9-16); Calcium 9.4 mg/dL (8.4-10.2); Carbon Dioxide 29 mmol/L (22-29); Chloride 107 mmol/L (96-108); Cholesterol 174 mg/dL (<200); Estimated Glomerular Filt Rate > 60; Glucose Fasting 119 mg/dL (60-99); HDL Cholesterol 61 mg/dL (>40); LDL Cholesterol Calculated 103 mg/dL (<100); Magnesium 2.2 mg/dL (1.6-2.6); Potassium 4.1 mmol/L (3.3-5.1); Sodium 140 mmol/L (135-145); TSH reflex Free T4 1.43 uIU/mL (0.32-4.0); Triglycerides 52 mg/dL (<150)
[2023-11-11 09:15] LABS: Vitamin D 25-OH, D2 <4 ng/mL; Vitamin D 25-OH, D3 23 ng/mL; Vitamin D 25-OH, Total 23 ng/mL (30-100)
== END 2023-11-06 06:02 | disposition home or self-care (01) ==
LOC: HO.HMGCLDS 06:01
PROVIDERS: PCP Internal Medicine; Visit Provider Internal Medicine
DX: E04.1 Nontoxic single thyroid nodule (principal); I10 Essential (primary) hypertension; K21.9 Gastro-esophageal reflux disease without esophagitis; R73.03 Prediabetes; E55.9 Vitamin D deficiency, unspecified; R25.2 Cramp and spasm
CPT/HCPCS: 36415; 80053; 80061; 81001; 82306; 83036; 83735; 84443; 85025; 87086

== ENCOUNTER 2023-11-08 15:20 | Outpatient (REF) | payer BC, SELFPAY ==
--- NOTE | ~2023-11-08 | US_ITS ---
EXAMINATION: US THYROID CLINICAL INFORMATION: Nontoxic single thyroid nodule. COMPARISON: None available. TECHNIQUE: Linear transducer grayscale and color Doppler examination with attention to the region of the thyroid. FINDINGS: SIZE: Measurements of the thyroid lobes and nodules are given in sagittal, anteroposterior and transverse dimensions respectively. Right Thyroid Lobe: 4.8 x 1.5 x 1.6 cm, volume 6.0 mL. Parenchyma: The gland echotexture is homogeneous. Thyroid vascularity is normal. Left Thyroid Lobe: 4.9 x 1.2 x 1.5 cm, volume 4.6 mL. Parenchyma: The gland echotexture is homogeneous. Thyroid vascularity is normal. Isthmus: 0.1 cm in maximum AP dimension. Estimated total number of nodules greater than or equal to 1 cm: 0. [employer] Programmer Analyst nodules are described as follows: 1. Location: Left lateral. Size: 0.6 x 0.4 x 0.5 cm, volume 0.06 mL. Nodule characteristics: Composition: Solid (2). Echogenicity: Isoechoic (1). Shape: Not taller than wide (0). Margins: Ill-defined (0). Echogenic Foci: None (0). ACR TI-RADS total points: 3 ACR TI-RADS category: 3 NODES: 0.7 x 0.4 x 0.4 cm soft tissue focus inferior to the left thyroid lobe may possibly represent a lymph node. US/US thyroid IMPRESSION: Subtle 0.6 cm left TR 3 thyroid nodule. 0.7 x 0.4 x 0.4 cm soft tissue focus inferior to the left thyroid lobe may possibly represent a lymph node. ACR TI-RADS RECOMMENDATION REFERENCE: Ultrasound-guided fine-needle aspiration, followup ultrasound, no further follow up. * TR1 (0 point) and TR2 (2 points): No FNA or follow up. * TR3 (3 points): FNA if more than or equal to 2.5 cm in maximum dimension, followup ultrasound in 1, 3 and 5 years if 1.5 to 2.4 cm in maximum dimension. * TR4 (4-6 points): FNA if more than or equal to 1.5 cm in maximum dimension, followup ultrasound in 1, 2, 3 and 5 years if 1 to 1.4 cm in maximum dimension. * TR5 (more than or equal to 7 points): FNA if more than or equal to 1 cm in maximum dimension, followup ultrasound every year for 5 years if 0.5 to 0.9 cm in maximum dimension. * TR3, TR4 or TR5 nodules that are below the size threshold for followup receive no follow up.
== END 2023-11-08 15:21 | disposition home or self-care (01) ==
LOC: HO.HMGCX 15:20
PROVIDERS: PCP Internal Medicine; Visit Provider Internal Medicine
DX: E04.1 Nontoxic single thyroid nodule (principal)
CPT/HCPCS: 76536

== ENCOUNTER 2024-01-16 15:25 | Outpatient (AMB) | payer BC, SELFPAY ==
[2024-01-16 15:28] VITALS: BP 148/88; PULSE 89; BMI 28.3
--- NOTE | 2024-01-16 15:28 | MHC.OFFVIS ---
Vital Signs 01/16/24 15:28 Height 5 ft 5 in Weight 170 lb 3.15 oz BMI 28.3 BP 148/88 H Blood Pressure Location Lt brachial Position Sitting Pulse 89 Intake Visit Reasons: 6 month f/u r/s from 12/19 Intake Note: Patient returns to in office today in 6 months follow up of GERD. CC: Patient states that she has been doing fine and denies having any new GI symptoms. Carding Machine Feeder Required: No Accompanied by: Self / Same As Patient Allergies atenolol Allergy (Severe, Verified 01/16/24 15:31) Swelling amlodipine Adverse Reaction (Intermediate, Verified 01/16/24 15:31) ankle swollen HPI HPI 6 month f/u r/s from 12/19: Details: Assessment & Plan (1) GERD (gastroesophageal reflux disease): Code(s): K21.9 - Gastro-esophageal reflux disease without esophagitis Plan: Apparently, she was seen at [facility] for episode of chest pain and at that time had negative cardiac workup. She was also seen subsequently here by Dr. Mcclain and had a negative stress test. She is still to have a cath for definitive r/o. She will also be seeing a rheum specialist in [facility] for her ? . She DID try taking TUMS and it did effect the pain. She can not ID any factors such as diet or new medications preceding the sx. She has been adherent to her pantoprazole 20mg qd. ROV 6 mos. 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 She was also seen subsequently here by Dr. Mcclain and had a negative stress test. She is still to have a cath for definitive r/o. She will also be seeing a rheum specialist in [facility] for her ? . She DID try taking TUMS and it did effect the pain. She can not ID any factors such as diet or new medications preceding the sx. She has been adherent to her pantoprazole 20mg qd. We will try increasing this to b.i.d. dosing to see if we can do better with her reflux control. TODAY'S VISIT she continues on her pantoprazole 20mg qd and her CP has vanished! Still of uncertain etiology. She had a completely negative cardiac work up. Her swallowing has been stable. She will have intermittent abd pain and then she will have N/V/D once and then she is fine. She takes magnesium for her muscle aches. She just had a thyroid scan for a nodule they are watching. ROV 6 mos. [facility] Medical History Acute sinusitis Dysuria Family history of ankylosing spondylitis Chest pain Abnormal EKG Upper respiratory tract infection Esophageal spasm Acute bronchitis Liver cyst Family history of rheumatoid arthritis Skin cancer screening Encounter for general adult medical examination with abnormal findings COVID-19 vaccine series completed Osteoarthritis Hiatal hernia IBS (irritable bowel syndrome) GERD (gastroesophageal reflux disease) Surgical History Hx of oral surgery History of nasal septoplasty Hx of section Hx of colonoscopy H/O esophagogastroduodenoscopy Family History Mother Breast cancer Colon polyps High blood pressure Hypothyroid Father CVD (cardiovascular disease) Brother H/O heart artery stent Cancer Substance use disorder Social History Housing: House Are you a primary post acute care nurse practitioner to a significant other at home: No Do you presently have visiting nurse or other home services: No Alcohol intake: current Alcohol intake frequency: a few times a month Alcohol type: wine Patient Tobacco Use Status: Former Tobacco user Tobacco use type: Cigarette Years Smoked: in high school e-Cigarette/Vaping Use: Never Used Second Hand Smoke Exposure: No service: No Current occupational status: employed Cognitive needs: No Hearing needs: No Vision needs: Yes Review of Systems Const Denies fatigue, Denies fever(s), Denies night sweats, Denies poor appetite and Denies weight loss Eyes Details: glasses Reports requires corrective lenses ENT Reports Normal hearing present, Denies dental pain, Reports dysphagia, Denies hearing loss, Denies mouth pain, Denies odynophagia, Denies throat swelling, Denies tongue swelling and Reports other (Dentition adequate) Card Reports no additional complaints Resp Reports no additional complaints GI Details: Denies abdominal pain, Denies melena, Denies bloating, Denies hematochezia, Denies constipation, Denies GI cramping, Reports dysphagia, Denies excessive flatus, Denies early satiety, Reports heartburn, Denies diarrhea, Denies nausea, Denies odynophagia, Denies vomiting and Denies hematemesis Skin/Breast Denies pruritus, Denies lesions, Denies rash and Denies jaundice Neuro Reports Normal hearing present and Denies Abnormal speech present Endo Denies fatigue Aller/Immun Denies throat swelling and Denies tongue swelling Physical Exam Vital Signs: Last Vital Signs Pulse 89 01/16/24 15:28 BP 148/88 H 01/16/24 15:28 BMI result Body Mass Index 28.3 Const General: cooperative, no acute distress, well developed and well groomed Nutritional Appearance: average body habitus and well nourished Orientation/consciousness: oriented to person, oriented to place and oriented to time Limitations: No language barrier HEENT Head: Yes normocephalic and Yes atraumatic Eyes General: appearance normal, both eyes and all related structures Pupils: Equal, round and reactive pupils present Neck Neck: Yes normal visual inspection and Yes no lymphadenopathy Thyroid: Thyroid normal Resp Effort & Inspection: normal respiratory effort and able to speak in complete sentences Auscultation: clear to auscultation bilaterally Cardio Rate: regular rate Rhythm: regular rhythm Heart sounds: Normal, physiologic split S2 sound present Peripheral pulses: radial pulses present and posterior tibial pulses present GI Inspection: No distended and No Abdominal panniculus present Palpation (GI): Soft to palpation, nontender, no guarding, not rigid and No hepatosplenomegaly present Percussion: Yes normal to percussion Auscultation: normal bowel sounds Rectal Exam - Female: deferred Skin General skin exam: no rashes or lesions noted, turgor normal, skin not dry, no jaundice, No spider nevi and no striae Rashes: no rashes Nails: normal Neuro General: oriented to person, oriented to place and oriented to time Cranial nerves: Yes Equal, round and reactive pupils present and Yes Normal hearing present Speech: No Abnormal speech present Extrem General: Yes normal to inspection, No clubbing, No cyanosis and No edema Psych Appearance: grossly normal and well kempt Mental Status: mental status grossly normal Speech and movement: Normal speech and movement present Affect: normal affect Attitude: cooperative Thought process: Normal thought process present and not confabulating Thought content: Normal thought content present Insight: Fair insight present (Psych) Judgement: Fair judgement present (Psych) Assessment & Plan Assessment & Plan (1) GERD (gastroesophageal reflux disease): Code(s): K21.9 - Gastro-esophageal reflux disease without esophagitis Category: Medical Qualifiers: Esophagitis presence: without esophagitis Qualified Code(s): K21.9 - Gastro-esophageal reflux disease without esophagitis (2) 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 Still of uncertain etiology. She had a completely negative cardiac work up. Her swallowing has been stable. She will have intermittent abd pain and then she will have N/V/D once and then she is fine. She takes magnesium for her muscle aches. She just had a thyroid scan for a nodule they are watching. ROV 6 mos. Medications: Refilled pantoprazole 20 mg PO DAILY 90 tabs 3RF K21.9 - Gastro-esophageal reflux disease without esophagitis, K29.30 - Chronic superficial gastritis without bleeding Coding Level of Care Code Est Pt Level 3 (13286) Diagnoses Gastroesophageal reflux disease without esophagitis K21.9 Esophagitis presence: without esophagitis Dysphagia lusoria Q27.8
== END 2024-01-16 15:54 | disposition home or self-care (01) ==
PROVIDERS: PCP Internal Medicine; Visit Provider Nurse Practitioner
DX: K21.9 Gastro-esophageal reflux disease without esophagitis (principal); Q27.8 Other specified congenital malformations of peripheral vascular system
CPT/HCPCS: 99213

== ENCOUNTER → 2024-01-16 15:25 | Outpatient (BNVA) | payer BC, SELFPAY | PROVIDERS: PCP Internal Medicine; Visit Provider Nurse Practitioner ==

== ENCOUNTER 2024-02-18 10:14 | Outpatient (AMB) | payer BC, SELFPAY ==
[2024-02-18 10:21] VITALS: BP 127/78; PULSE 75; O2SAT 98; BMI 27.8
--- NOTE | 2024-02-18 10:21 | MHC.PC.OV ---
Vital Signs 02/18/24 10:21 Height 5 ft 5 in Weight 167 lb 3 oz BMI 27.8 BP 127/78 Blood Pressure Location Lt brachial Position Sitting Pulse 75 Pulse Source Pulse Oximeter Pulse Oximetry (%) 98 Oxygen Delivery Method Room Air Intake Visit Reasons: 3M F/u~ Allergies atenolol Allergy (Severe, Verified 02/18/24 10:24) Swelling amlodipine Adverse Reaction (Intermediate, Verified 02/18/24 10:24) ankle swollen Medication List - Last Reconciled 02/18/24 by Lizeth South MD albuterol sulfate 90 mcg/actuation (Ventolin HFA) 1 inh inhalation Q4-6H PRN cholecalciferol (vitamin D3) (Vitamin D3) 25 mcg PO DAILY losartan 25 mg PO BID 90 days magnesium oxide 400 mg PO DAILY pantoprazole 20 mg PO DAILY Tobacco use date assessed: 02/18/24 Fall risk assessment: No Falls in past year Last assessed Fall Risk: 02/18/24 Dental Screening Dental Screen Date: 02/18/24 Did you have a dental visit in the last 12 months?: Yes Did you have a dental problem in the last 6 months where you did not have access to dental care?: No Was dental information given to patient?: Patient has dentist HPI 3M F/u~ HPI Details Patient is 64-year-old female came in for her regular follow-up appointment Blood pressure is well-controlled today 127 x 78, however patient says that at home it can increase sometimes to 160 systolic Currently she is taking losartan 25 mg b.i.d. and is tolerating medication Patient could not tolerate amlodipine as it caused swelling of her ankle We did try atenolol in the past as well which caused wheezing Patient also allergies, today she is wheezing She has stopped taking Breo inhaler because she was feeling better, but last night she needed to take albuterol inhaler as she was feeling irritated cough I have told her to start taking the Breo again. GERD is stable with pantoprazole 20 mg. Labs are due order placed Patient does admit to feeling anxiety, she was feeling better when she was taking atenolol and is interested in starting it again However I do not think that is a good idea because her wheezing got worse when she was taking atenolol. She agreed to take small dose of Lexapro today, 5 mg sent She will stay in touch with me through patient portal. Follow-up 4 months [facility] Medical History Acute sinusitis Dysuria Family history of ankylosing spondylitis Chest pain Abnormal EKG Upper respiratory tract infection Esophageal spasm Acute bronchitis Liver cyst Family history of rheumatoid arthritis Skin cancer screening Encounter for general adult medical examination with abnormal findings COVID-19 vaccine series completed Osteoarthritis Hiatal hernia IBS (irritable bowel syndrome) GERD (gastroesophageal reflux disease) Surgical History Hx of oral surgery History of nasal septoplasty Hx of section Hx of colonoscopy H/O esophagogastroduodenoscopy Family History Mother Breast cancer Colon polyps High blood pressure Hypothyroid Father CVD (cardiovascular disease) Brother H/O heart artery stent Cancer Substance use disorder Social History Housing: House Are you a primary certified social workers in health care to a significant other at home: No Do you presently have visiting nurse or other home services: No Alcohol intake: current Alcohol intake frequency: a few times a month Alcohol type: wine Patient Tobacco Use Status: Former Tobacco user Tobacco use type: Cigarette Years Smoked: in high school e-Cigarette/Vaping Use: Never Used Second Hand Smoke Exposure: No service: No Current occupational status: employed Cognitive needs: No Hearing needs: No Vision needs: Yes Questionnaire Thrive Questionnaire Date Thrive assessed: 11/01/23 AUDIT C Alcohol Use Questionnaire (AUDIT-C) 1. How often do you have a drink containing alcohol?: Monthly or less 2. How many drinks containing alcohol do you have on a typical day when you are drinking?: 1 or 2 3. How often do you have six or more drinks on one occasion?: Never Total Score: 1 Score Reviewed/Action Taken: Yes HEAVENLY-7 AMB Questionnaire HEAVENLY-7 Date HEAVENLY - 7 assessed: 08/07/23 Source: Developed by Drs. Jair Monique, Angela Velasco, Daniel Whiteside and colleagues, with an educational lane from [employer]. Review of Systems Const Denies chills and Denies fever(s) ENT Denies epistaxis and Denies nasal discharge Card Denies chest pain Resp Denies chest congestion, Denies cough and Denies hemoptysis GI Denies diarrhea and Denies nausea Skin/Breast Denies rash Neuro Reports no additional complaints Psych Reports no additional complaints Endo Reports no additional complaints Physical exam (Primary Care) Vital Signs: Last Vital Signs Pulse 75 02/18/24 10:21 BP 127/78 02/18/24 10:21 Pulse Ox 98 02/18/24 10:21 Oxygen Delivery Method Room Air 02/18/24 10:21 BMI result Body Mass Index 27.8 Tobacco/Smoking Status: Tobacco use Status Tobacco use date assessed 02/18/24 02/18/24 10:25 Patient Tobacco Use Status Former Tobacco user 02/18/24 10:25 Tobacco use type Cigarette 02/18/24 10:25 e-Cigarette/Vaping Use Never Used 02/18/24 10:25 Thrive Assessment: Date of Thrive Assessment Date Thrive assessed 11/01/23 02/18/24 10:25 Const General: cooperative, comfortable and no acute distress Orientation/consciousness: patient oriented x3 HENMT Head: Yes normocephalic Eyes General: appearance normal, both eyes and all related structures Neck Neck: Yes supple Resp Effort & Inspection: normal respiratory effort, no cough and no stridor Cardio Rhythm: regular rhythm Heart sounds: S1 normal heart sound present and S2 normal heart sound present Skin General skin exam: turgor normal Neuro General: patient oriented x3, tone normal and moves all extremities Extrem Right lower extremity: no edema Left lower extremity: no edema Assessment and Plan Assessment & Plan (1) Anxiety, generalized: Code(s): F41.1 - Generalized anxiety disorder (2) Hypertension, essential: Code(s): I10 - Essential (primary) hypertension (3) GERD (gastroesophageal reflux disease): Code(s): K21.9 - Gastro-esophageal reflux disease without esophagitis Qualifiers: Esophagitis presence: without esophagitis Qualified Code(s): K21.9 - Gastro-esophageal reflux disease without esophagitis (4) Pre-diabetes: Code(s): R73.03 - Prediabetes (5) Vitamin D deficiency: Code(s): E55.9 - Vitamin D deficiency, unspecified Plan Patient is 64-year-old female came in for her regular follow-up appointment Blood pressure is well-controlled today 127 x 78, however patient says that at home it can increase sometimes to 160 systolic Currently she is taking losartan 25 mg b.i.d. and is tolerating medication Patient could not tolerate amlodipine as it caused swelling of her ankle We did try atenolol in the past as well which caused wheezing Patient also allergies, today she is wheezing She has stopped taking Breo inhaler because she was feeling better, but last night she needed to take albuterol inhaler as she was feeling irritated cough I have told her to start taking the Breo again. GERD is stable with pantoprazole 20 mg. Labs are due order placed Patient does admit to feeling anxiety, she was feeling better when she was taking atenolol and is interested in starting it again However I do not think that is a good idea because her wheezing got worse when she was taking atenolol. She agreed to take small dose of Lexapro today, 5 mg sent She will stay in touch with me through patient portal. Follow-up 4 months Orders: Orders LDL Cholesterol Direct Today F41.1 - Generalized anxiety disorder, I10 - Essential (primary) hypertension, R73.03 - Prediabetes Complete Blood Count Auto Diff Today F41.1 - Generalized anxiety disorder, I10 - Essential (primary) hypertension, R73.03 - Prediabetes Comprehensive Met. Panel Today F41.1 - Generalized anxiety disorder, I10 - Essential (primary) hypertension, R73.03 - Prediabetes Hemoglobin A1c Today F41.1 - Generalized anxiety disorder, I10 - Essential (primary) hypertension, R73.03 - Prediabetes Medications: New escitalopram oxalate (Lexapro) 5 mg PO DAILY 30 tabs 0RF Anxiety Refilled losartan 25 mg PO BID 90 days 180 tabs 0RF Breo Ellipta 200-25 mcg/dose (fluticasone furoate-vilanterol) rinse your mouth after use 1 inh inhalation DAILY 30 days 28 ea 2RF NS Coding Level of Care Code Est Pt Level 4 (07944) Diagnoses Anxiety, generalized F41.1 Hypertension, essential I10 Gastroesophageal reflux disease without esophagitis K21.9 Esophagitis presence: without esophagitis Pre-diabetes R73.03 Vitamin D deficiency E55.9
== END 2024-02-18 11:26 | disposition home or self-care (01) ==
PROVIDERS: PCP Internal Medicine; Visit Provider Internal Medicine
DX: F41.1 Generalized anxiety disorder (principal); I10 Essential (primary) hypertension; K21.9 Gastro-esophageal reflux disease without esophagitis; R73.03 Prediabetes; E55.9 Vitamin D deficiency, unspecified
CPT/HCPCS: 99214

== ENCOUNTER 2024-05-05 12:11 | Outpatient (AMB) | payer BC, SELFPAY ==
[2024-05-05 13:08] VITALS: BP 120/78; PULSE 93; TEMP 36.9; O2SAT 98; BMI 27.0
--- NOTE | 2024-05-05 13:08 | AM.OFFWIN_ITS ---
Intake Vital Signs 05/05/24 13:08 Height 5 ft 5 in Weight 162 lb BMI 27.0 BP 120/78 Blood Pressure Location Rt brachial Position Sitting Pulse 93 Pulse Source Pulse Oximeter Temp 98.4 F Temp Source Oral Pulse Oximetry (%) 98 Oxygen Delivery Method Room Air Intake Visit Reasons: EP Respiratory complaints Intake Note: pt c/o cough, body aches, chest pressure, started Saturday. Had Covid end of March. Patient Tobacco Use Status: Former Tobacco user Allergies atenolol Allergy (Severe, Verified 02/18/24 10:24) Swelling amlodipine Adverse Reaction (Intermediate, Verified 02/18/24 10:24) ankle swollen Do you need a note to return to daycare/school/sports/work: No HPI HPI Comments History of Present Illness Details Patient is a 64-year-old female complaining of a cough, burning in her lungs , chest tightness and chest congestion for 3 days. She states she is coug alie but it is more of a dry cough and can not seem to cough any mucus up but she can hear it in her lungs. She states she also had a subjective fever and chills but those subsided. She has a headache and fatigue as well. She denies any sinus pain, ear pain, sore throat. She states she was diagnosed with COVID in the end of March and then felt better and this just started a few days ago. She states she has been using her albuterol inhaler and her Breo Ellipta without much relief. She denies any sick contacts and has a very remote smoking history. [facility] Medical History Acute sinusitis Dysuria Family history of ankylosing spondylitis Chest pain Abnormal EKG Upper respiratory tract infection Esophageal spasm Acute bronchitis Liver cyst Family history of rheumatoid arthritis Skin cancer screening Encounter for general adult medical examination with abnormal findings COVID-19 vaccine series completed Osteoarthritis Hiatal hernia IBS (irritable bowel syndrome) GERD (gastroesophageal reflux disease) Surgical History Hx of oral surgery History of nasal septoplasty Hx of section Hx of colonoscopy H/O esophagogastroduodenoscopy Family History Mother Breast cancer Colon polyps High blood pressure Hypothyroid Father CVD (cardiovascular disease) Brother H/O heart artery stent Cancer Substance use disorder Social History Housing: House Are you a primary health care facilities inspector to a significant other at home: No Do you presently have visiting nurse or other home services: No Alcohol intake: current Alcohol intake frequency: a few times a month Alcohol type: wine Patient Tobacco Use Status: Former Tobacco user Tobacco use type: Cigarette Years Smoked: in high school e-Cigarette/Vaping Use: Never Used Second Hand Smoke Exposure: No service: No Current occupational status: employed Cognitive needs: No Hearing needs: No Vision needs: Yes Review of Systems Const All systems reviewed & are unremarkable except as noted in HPI and below Physical Exam Vital Signs: Last Vital Signs Temp 98.4 F 05/05/24 13:08 Pulse 93 05/05/24 13:08 BP 120/78 05/05/24 13:08 Pulse Ox 98 05/05/24 13:08 Oxygen Delivery Method Room Air 05/05/24 13:08 BMI result Body Mass Index 27.0 Const General: cooperative, healthy appearing, comfortable and no acute distress Orientation/consciousness: patient oriented x3 Limitations: no limitations HEENT Head: Yes normal to inspection Ears: hearing grossly normal bilaterally, external ears normal and TM's normal bilaterally General nose exam: Normal external nose present, Normal nares present and No nasal discharge present Face and sinus: Yes normal facial exam and Yes sinuses nontender Mouth: Normal oral and palatal mucosa present and moist mucous membranes Throat: Yes tonsils normal, Yes uvula midline and Yes posterior oropharynx abnormal (Erythema) Eyes General: appearance normal, both eyes and all related structures Neck Neck: Yes normal visual inspection Resp Effort & Inspection: normal respiratory effort, able to speak in complete sentences, Actively coughing, no respiratory distress, not tachypneic, no tripod positioning and no use of accessory muscles Auscultation: clear to auscultation bilaterally Cardio Rate: regular rate Rhythm: regular rhythm Heart sounds: normal S1 and S2 Skin General skin exam: no rashes or lesions noted Neuro General: patient oriented x3 Extrem General: Yes normal to inspection and Yes no clubbing, cyanosis or edema Assessment & Plan Assessment & Plan (1) Bronchitis: Code(s): J40 - Bronchitis, not specified as acute or chronic Plan: Vital signs are stable and physical exam is relatively unremarkable. However with patient's complaints about chest burning, we will get a chest x-ray to rule out pneumonia. Sent flu COVID and RSV however anticipating these to be negative as she was just diagnosed with COVID a little over a month ago. Plan See above Orders: Orders SARS-CoV2/FLU/RSV Today J06.9 - Acute upper respiratory infection, unspecified XR chest 2V Today R05.9 - Cough, unspecified Coding Level of Care Code Est Pt Level 4 (51464) Diagnoses Bronchitis J40
== END 2024-05-05 14:13 | disposition home or self-care (01) ==
PROVIDERS: PCP Internal Medicine; Visit Provider Physician Assistant
DX: J40 Bronchitis, not specified as acute or chronic (principal)
CPT/HCPCS: 99214

== ENCOUNTER 2024-05-05 13:25 | Outpatient (REF) | payer BC, SELFPAY | END 2024-05-05 13:26 | disposition home or self-care (01) | LOC: HO.LAB 13:25 | PROVIDERS: Visit Provider Physician Assistant | DX: Z13.89 Encounter for screening for other disorder (principal) ==

== ENCOUNTER 2024-05-05 14:01 | Outpatient (REF) | payer BC, SELFPAY ==
--- NOTE | ~2024-05-05 | XR_ITS ---
EXAMINATION: XR CHEST CLINICAL INFORMATION: Cough COMPARISON: chest radiograph 10/07/2023 TECHNIQUE: 2 views of the chest were obtained. FINDINGS: No significant abnormality is noted involving the heart, lungs, mediastinum, bony thorax or soft tissues. XR/XR chest 2V IMPRESSION: Unremarkable examination. Electronically signed by: Neil Maldonado MD 05/05/2024 03:37 PM EDT RP
[2024-05-05 18:37] LABS: Influenza A PCR NEGATIVE (Negative); Influenza B PCR NEGATIVE (Negative); Resp Syncy Virus RNA Qual PCR NEGATIVE (Negative); SARS COV2 PCR INHOUSE NEGATIVE (Negative)
== END 2024-05-05 14:02 | disposition home or self-care (01) ==
LOC: HO.HMGCX 14:01
PROVIDERS: PCP Internal Medicine; Visit Provider Physician Assistant
DX: R05.9 Cough, unspecified (principal); J06.9 Acute upper respiratory infection, unspecified
CPT/HCPCS: 0241U; 71046

== ENCOUNTER 2024-05-08 13:49 | Outpatient (REF) | payer BC, SELFPAY ==
[2024-05-08 16:24] LABS: Appearance Urine Cloudy; Color Urine Yellow; Glucose Urine UA Negative (Negative); Leukocyte Esterase Urine Large (3+) (Negative); Nitrite Urine Positive (Negative); Specific Gravity - Urine <= 1.005 (1.005-1.025); UMIC TRIGGER UACC YES; Urine Blood Trace (Negative); Urine Ketones Trace mg/dL (Negative); Urine Protein Negative (Neg-Trace)
[2024-05-08 16:27] LABS: Bacteria Urine 4+ (None Seen); Hyaline Casts Urine 0-2 /LPF (0-2); RBC Urine 0-2 /HPF (0-2); Squamous Epithelial Cell Urine 0-2 /HPF (0-2); UACC Culture Trigger YES; WBC Urine >50 /HPF (0-5)
== END 2024-05-08 13:50 | disposition home or self-care (01) ==
LOC: HO.HMGCLDS 13:49
PROVIDERS: PCP Internal Medicine; Visit Provider Internal Medicine
DX: R35.89 Other polyuria (principal); R82.79 Other abnormal findings on microbiological examination of urine
CPT/HCPCS: 81001; 87086; 87088; 87186

== ENCOUNTER 2024-06-06 07:06 | Outpatient (REF) | payer BC, SELFPAY ==
[2024-06-06 10:59] LABS: MANUAL DIFF FLAG NO
[2024-06-06 11:21] LABS: Basophils Absolute Auto 0.1 X10*3/uL (0.0-0.2); Basophils Percent Auto 1.6 % (0-2); Eosinophils Absolute Auto 0.4 X10*3/uL (0.0-0.4); Eosinophils Percent Auto 6.1 % (0-4); Hematocrit 41.2 % (37.0-47.0); Hemoglobin 13.6 g/dl (12.0-16.0); Imm Gran Abs Auto 0.02 X10*3/uL (0.00-0.03); Imm Gran Pct Auto 0.3 % (0.0-0.4); Lymphocytes Absolute Auto 1.8 X10*3/uL (1.2-4.9); Mean Corpuscular Hemoglobin 29.5 pg (27.0-33.0); Mean Corpuscular Volume 89.4 fL (80.0-98.0); Mean Platelet Volume 9.8 fL (9.4-12.3); Monocytes Absolute Auto 0.6 X10*3/uL (0.1-1.2); Monocytes Percent Auto 9.6 % (2-11); Neutrophils Absolute Auto 2.9 x10*3/uL (2.0-8.3); Neutrophils Percent Auto 50.4 % (45-73); Platelet Count 346 X10*3/uL (160-400); Red Blood Count 4.61 X10*6/uL (4.20-5.50); White Blood Count 5.7 X10*3/uL (4.8-10.8)
[2024-06-06 12:10] LABS: Alanine Aminotransferase 19 U/L (0-31); Albumin Level 4.1 g/dL (3.5-5.0); Alkaline Phosphatase 50 U/L (39-117); Anion Gap 10 (12-20); Aspartate Amino Transferase 15 U/L (5-31); Bilirubin Total 0.6 mg/dL (0.0-1.0); Blood Urea Nitrogen 15 mg/dL (9-16); Calcium 8.9 mg/dL (8.4-10.2); Carbon Dioxide 28 mmol/L (22-29); Chloride 106 mmol/L (96-108); Estimated Glomerular Filt Rate > 60; Glucose Random 119 mg/dL (60-115); Potassium 4.1 mmol/L (3.3-5.1); Sodium 140 mmol/L (135-145); Total Protein 6.7 g/dL (6.5-8.0)
[2024-06-06 13:06] LABS: Estimated Average Glucose 108 mg/dL; Hemoglobin A1C 123.7201 umol/L; Hemoglobin A1c % 5.4 % (<6.0); Total Hemoglobin (HGBA1C) 3469.2233 umol/L
[2024-06-08 16:48] LABS: LDL Cholesterol Direct 110 mg/dL (<100)
== END 2024-06-06 07:07 | disposition home or self-care (01) ==
LOC: HO.HMGCLDS 07:06
PROVIDERS: PCP Internal Medicine; Visit Provider Internal Medicine
DX: I10 Essential (primary) hypertension (principal); R73.03 Prediabetes; F41.1 Generalized anxiety disorder
CPT/HCPCS: 36415; 80053; 83036; 83721; 85025

== ENCOUNTER 2024-06-20 07:57 | Outpatient (REF) | payer BC, SELFPAY ==
--- NOTE | ~2024-06-20 | MM_ITS ---
EXAMINATION: MM SCREENING DIGITAL BREAST TOMOSYNTHESIS, BILATERAL CLINICAL INFORMATION: Screening. Asymptomatic. COMPARISON: Mammography: Comparison is made with available priors TECHNIQUE: Digital breast mammography with tomosynthesis is performed in both the craniocaudal and mediolateral oblique views along with computer-aided detection (CAD). FINDINGS: The breasts are heterogeneously dense, which may obscure small masses (ACR BI-RADS breast composition Category c). There are no significant masses, abnormal calcifications, or other abnormalities. MM/MM tomosynthesis screening BI IMPRESSION: No mammographic evidence of malignancy. ASSESSMENT: BI-RADS BI-RADS 1 - Negative RECOMMENDATION: Routine annual mammography screening. 1 year F/U This examination should not preclude the clinical evaluation of a suspicious palpable abnormality. This patient's information was entered into a reminder system with a target due date for their next mammogram. Electronically signed by: Yola Mora DO 07/03/2024 10:08 AM DAPHNIE
== END 2024-06-20 07:58 | disposition home or self-care (01) ==
LOC: HO.MAMMO 07:57
PROVIDERS: PCP Internal Medicine; Visit Provider Internal Medicine
DX: Z12.31 Encounter for screening mammogram for malignant neoplasm of breast (principal)
CPT/HCPCS: 77063; 77067

== ENCOUNTER → 2024-06-20 08:00 | Outpatient (BNV) | payer BC, SELFPAY | PROVIDERS: PCP Internal Medicine; Visit Provider Internal Medicine | DX: Z12.31 Encounter for screening mammogram for malignant neoplasm of breast (principal) | CPT/HCPCS: 77063; 77067 ==

== ENCOUNTER 2024-07-24 15:23 | Outpatient (AMB) | payer BC, SELFPAY ==
[2024-07-24 15:24] VITALS: BP 146/92; PULSE 85; O2SAT 99; BMI 28.0
--- NOTE | 2024-07-24 15:24 | A.OFFPC_ITS ---
Vital Signs 3 07/24/24 15:24 Height 5 ft 5 in Weight 168 lb BMI 28.0 BP 146/92 H Blood Pressure Location Lt brachial Position Sitting Pulse 85 Pulse Source Pulse Oximeter Pulse Oximetry (%) 99 Oxygen Delivery Method Room Air Intake Visit Reasons: Annual PE Allergies atenolol Allergy (Severe, Verified 07/24/24 15:24) Swelling amlodipine Adverse Reaction (Intermediate, Verified 07/24/24 15:24) ankle swollen Medication List - Last Reconciled 07/24/24 by Lizeth South MD albuterol sulfate 90 mcg/actuation (Ventolin HFA) 1 inh inhalation Q4-6H PRN Breo Ellipta 200-25 mcg/dose (fluticasone furoate-vilanterol) 1 inh inhalation DAILY 30 days NS cholecalciferol (vitamin D3) (Vitamin D3) 25 mcg PO DAILY losartan 25 mg PO BID 90 days pantoprazole 20 mg PO DAILY Tobacco use date assessed: 02/18/24 Fall risk assessment: No Falls in past year Last assessed Fall Risk: 07/24/24 Dental Screening Dental Screen Date: 07/24/24 Did you have a dental visit in the last 12 months?: Yes Did you have a dental problem in the last 6 months where you did not have access to dental care?: No Was dental information given to patient?: Patient has dentist HPI Annual PE 2 HPI0 Details Physical exam appointment Blood pressure is slightly elevated today at 146/92 Patient is monitoring it at home and it runs usually 130s to 120 systolic She is taking her medication regularly patient is currently taking 25 mg of losartan 2 times a day, tolerating medication no side effects She have stopped taking Breo inhaler, she was taking it when she got sick with COVID Patient says that she no longer needs it. Patient is on pantoprazole 20 mg for GERD Mammogram is up-to-date , patient have dense breasts and a family history of breast cancer in mother On examination today I do feel a lump right upper quadrant, I am booking her with MRI of breast She sees OBGYN Dr. Queenie cunningham in [facility], visits are up-to-date Colonoscopy was in [address] Forbes, next 1 will be in 2025 Patient is complaining of pain right arm which has been happening for months Sometimes it is better sometimes worse she has also developed a cyst in 1 of her right hand fingers which is not resolving And causes pain when it hits something Patient would like to see an orthopedic but she will get back to me regarding the knee She would like to go to [facility] orthopedic group Labs done in June reviewed with the patient She will return in six-month for follow-up appointment [facility] Medical History (Updated 07/24/24 @ 16:01 by Lizeth South MD) Encounter for general adult medical examination with abnormal findings Acute sinusitis Dysuria Family history of ankylosing spondylitis Chest pain Abnormal EKG Upper respiratory tract infection Esophageal spasm Acute bronchitis Liver cyst Family history of rheumatoid arthritis Skin cancer screening COVID-19 vaccine series completed Osteoarthritis Hiatal hernia IBS (irritable bowel syndrome) GERD (gastroesophageal reflux disease) Surgical History Hx of oral surgery History of nasal septoplasty Hx of section Hx of colonoscopy H/O esophagogastroduodenoscopy Family History Mother Breast cancer Colon polyps High blood pressure Hypothyroid Father CVD (cardiovascular disease) Brother H/O heart artery stent Cancer Substance use disorder Social History Housing: House Are you a primary healthcare administration intern to a significant other at home: No Do you presently have visiting nurse or other home services: No Alcohol intake: current Alcohol intake frequency: a few times a month Alcohol type: wine Patient Tobacco Use Status: Former Tobacco user Tobacco use type: Cigarette Years Smoked: in high school e-Cigarette/Vaping Use: Never Used Second Hand Smoke Exposure: No service: No Current occupational status: employed Cognitive needs: No Hearing needs: No Vision needs: Yes Questionnaire PHQ-9 Over the last 2 weeks, how often have you been bothered by any of the following problems? 1. Little interest or pleasure in doing things: not at all 2. Feeling down, depressed, or hopeless: not at all 3. Trouble falling or staying asleep, or sleeping too much: several days 4. Feeling tired or having little energy: several days 5. Poor appetite or overeating: several days 6. Feeling bad about yourself - or that you are a failure or have let yourself or your family down: not at all 7. Trouble concentrating on things, such as reading the newspaper or watching television: not at all 8. Moving or speaking so slowly that other people could have noticed. Or the opposite - being so fidgety or restless that you have been moving around a lot more than usual: not at all 9. Thoughts that you would be better off or of hurting yourself in some way: not at all Total score: 3 Depression Screening Interpretation: Negative Depression Screening Done: Yes 97160 - PHQ-9 Billing: Yes Source: Developed by Drs. Jair Monique, Angela Velasco, Daniel Whiteside and colleagues, with an educational lane from [employer]. Thrive Questionnaire Date Thrive assessed: 07/24/24 I am a: Patient What is your living situation today?: I have a steady place to live Within the past 12 months, did the food you bought not last and you didn't have the money to get more?: Never true Within the past 12 months, did you worry whether your food would run out before you got money to buy more?: Never true Do you have trouble paying for medicines?: No Do you have trouble getting transportation to medical appointments?: No Do you have trouble paying your heating and electricity bill?: No Do you have trouble taking care of your child, family member or friend?: No Do you have trouble with day-to-day activities such as bathing, preparing meals, shopping, managing finances, etc.?: No Are you currently unemployed and looking for a job?: No Are you interested in more education?: No Please select the resources that you would like help with: None Currently or been in a relationship where the following occur: No concerns reported THRIVE Score: 0 AUDIT C Alcohol Use Questionnaire (AUDIT-C) 1. How often do you have a drink containing alcohol?: 2-3 times a week 2. How many drinks containing alcohol do you have on a typical day when you are drinking?: 1 or 2 3. How often do you have six or more drinks on one occasion?: Never Total Score: 3 Score Reviewed/Action Taken: Yes HEAVENLY-7 AMB Questionnaire HEAVENLY-7 Date HEAVENLY - 7 assessed: 07/24/24 Feeling nervous, anxious, or on edge: 0 = Not at all Not being able to stop or control worryin = Not at all Worrying too much about different things: 0 = Not at all Trouble relaxin = Several days Being so restless that it is hard to sit still: 0 = Not at all Becoming easily annoyed or irritable: 1 = Several days Feeling afraid as if something awful might happen: 1 = Several days Total HEAVENLY-7 score (0-4 normal; 5-9 mild; 10-14 moderate; 15-21 severe): 3 Source: Developed by Drs. Jair Monique, Angela Velasco, Daniel Whiteside and colleagues, with an educational lane from [employer]. HEAVENLY-7 Assessment Billing HEAVENLY-7 Assessment Tool: HEAVENLY-7 Assessment 47246 Review of Systems Const Denies chills, Denies fever(s) and Denies headache(s) Eyes Denies blurry vision ENT Denies headache(s), Denies nasal discharge, Denies nasal obstruction, Denies odynophagia and Denies sinus pain Card Denies chest pain at rest and Denies chest pain with activity Resp Denies cough and Denies hemoptysis GI Denies diarrhea, Denies odynophagia, Denies vomiting and Denies hematemesis Reports as per HPI Musc Denies abnormal gait Skin/Breast Reports as per HPI Neuro Denies Neuro-related abnormal movements, Denies Abnormal speech present, Denies abnormal gait, Denies headache(s) and Denies Sensory deficit (Neuro) Psych Denies mood swings and Denies paranoia Endo Reports as per HPI Dayron/Lymph Reports as per HPI Aller/Immun Reports as per HPI Physical exam (Primary Care) Vital Signs: Last Vital Signs Pulse 85 07/24/24 15:24 BP 146/92 H 07/24/24 15:24 Pulse Ox 99 07/24/24 15:24 Oxygen Delivery Method Room Air 07/24/24 15:24 BMI result Body Mass Index 28.0 Tobacco/Smoking Status: Tobacco use Status Tobacco use date assessed 02/18/24 07/24/24 15:27 Patient Tobacco Use Status Former Tobacco user 07/24/24 15:27 Tobacco use type Cigarette 07/24/24 15:27 e-Cigarette/Vaping Use Never Used 07/24/24 15:27 PHQ-9: PHQ-9 Score PHQ-9: Total score 3 07/24/24 15:30 Depression Screening Interpretation: Negative Thrive Assessment: Date of Thrive Assessment Date Thrive assessed 07/24/24 07/24/24 15:30 Currently or been in a relationship where the following occur: No concerns reported Const General: cooperative, comfortable and no acute distress Orientation/consciousness: patient oriented x3 HENMT Head: Yes normocephalic and Yes atraumatic Eyes General: appearance normal, both eyes and all related structures Pupils: Equal, round and reactive pupils present EOM: EOMs intact bilaterally Neck Neck: Yes supple and No lymphadenopathy Thyroid: Thyroid normal Lymphatic: no lymphadenopathy noted Chest Chest/axillae images: 2 1. Lump felt Resp Effort & Inspection: normal respiratory effort and able to speak in complete sentences Auscultation: clear to auscultation bilaterally Cardio Heart sounds: S1 normal heart sound present and S2 normal heart sound present GI Palpation (GI): Soft to palpation and nontender Auscultation: normal bowel sounds General: Yes no CVA tenderness Back/Spine/Pelvis Back: no CVA tenderness Skin General skin exam: elasticity normal and turgor normal Neuro General: patient oriented x3 and gait normal Cranial nerves: Yes Equal, round and reactive pupils present Speech: No Abnormal speech present Sensory Exam: No Sensory deficit (Neuro) Coordination: tandem gait normal and Romberg test negative Extrem General: Yes normal exam except as noted and No edema Shoulder/upper arm images: 2 1. No pain with palpation, range of motion elbow full, motor sensory intact vascular intact Coding Level of Care Code Est Pt Level 3 (21350) Est Pt Prev Care 40-64y(27482) Diagnoses Encounter for general adult medical examination with abnormal findings Z00.01 Dense breasts R92.30 Family history of breast cancer Z80.3 Lump in upper inner quadrant of right breast N63.12 Hypertension, essential I10 Gastroesophageal reflux disease without esophagitis K21.9 Esophagitis presence: without esophagitis Additional Codes HEAVENLY-7 Assessment Billing - HEAVENLY-7 Assessment Tool: HEAVENLY-7 Assessment 19774 ([id number]) PHQ-9 - 94916 - PHQ-9 Billing: Yes ([id number]) Assessment & Plan Assessment & Plan (1) Encounter for general adult medical examination with abnormal findings: Code(s): Z00.01 - Encounter for general adult medical examination with abnormal findings Category: Medical (2) Dense breasts: Code(s): R92.30 - Dense breasts, unspecified Category: Medical (3) Family history of breast cancer: Code(s): Z80.3 - Family history of malignant neoplasm of breast Category: Medical (4) Lump in upper inner quadrant of right breast: Code(s): N63.12 - Unspecified lump in the right breast, upper inner quadrant Category: Medical (5) Hypertension, essential: Code(s): I10 - Essential (primary) hypertension Category: Medical (6) GERD (gastroesophageal reflux disease): Code(s): K21.9 - Gastro-esophageal reflux disease without esophagitis Category: Medical Qualifiers: Esophagitis presence: without esophagitis Qualified Code(s): K21.9 - Gastro-esophageal reflux disease without esophagitis Plan Physical exam appointment Blood pressure is slightly elevated today at 146/92 Patient is monitoring it at home and it runs usually 130s to 120 systolic She is taking her medication regularly patient is currently taking 25 mg of losartan 2 times a day, tolerating medication no side effects She have stopped taking Breo inhaler, she was taking it when she got sick with COVID Patient says that she no longer needs it. Patient is on pantoprazole 20 mg for GERD Mammogram is up-to-date , patient have dense breasts and a family history of breast cancer in mother On examination today I do feel a lump right upper quadrant, I am booking her with MRI of breast She sees OBGYN Dr. Queenie cunningham in [facility], visits are up-to-date Colonoscopy was in [address] Forbes, next 1 will be in 2025 Patient is complaining of pain right arm which has been happening for months Sometimes it is better sometimes worse she has also developed a cyst in 1 of her right hand fingers which is not resolving And causes pain when it hits something Patient would like to see an orthopedic but she will get back to me regarding the knee She would like to go to [facility] orthopedic group Labs done in June reviewed with the patient She will return in six-month for follow-up appointment Orders: Orders 2 MR breast BI wo con Today N63.12 - Unspecified lump in the right breast, upper inner quadrant, R92.30 - Dense breasts, unspecified, Z80.3 - Family history of malignant neoplasm of breast
== END 2024-07-24 16:49 | disposition home or self-care (01) ==
PROVIDERS: PCP Internal Medicine; Visit Provider Internal Medicine
DX: Z00.00 Encounter for general adult medical examination without abnormal findings (principal); R92.30 Dense breasts, unspecified; N63.12 Unspecified lump in the right breast, upper inner quadrant; Z80.3 Family history of malignant neoplasm of breast; I10 Essential (primary) hypertension; K21.9 Gastro-esophageal reflux disease without esophagitis

== ENCOUNTER → 2024-07-24 15:23 | Outpatient (BNVA) | payer BC, SELFPAY | PROVIDERS: PCP Internal Medicine; Visit Provider Internal Medicine | DX: Z00.01 Encounter for general adult medical examination with abnormal findings (principal); R92.30 Dense breasts, unspecified; N63.12 Unspecified lump in the right breast, upper inner quadrant; I10 Essential (primary) hypertension; K21.9 Gastro-esophageal reflux disease without esophagitis; Z79.899 Other long term (current) drug therapy; Z80.3 Family history of malignant neoplasm of breast | CPT/HCPCS: 96127 ==

== ENCOUNTER → 2024-09-01 09:14 | Outpatient (BNV) | payer BC, SELFPAY | PROVIDERS: PCP Internal Medicine; Visit Provider Internal Medicine | DX: N63.11 Unspecified lump in the right breast, upper outer quadrant (principal); Z80.3 Family history of malignant neoplasm of breast | CPT/HCPCS: 77049 ==

== ENCOUNTER 2024-09-01 09:16 | Outpatient (REF) | payer BC, SELFPAY ==
--- NOTE | ~2024-09-01 | MR_ITS ---
EXAMINATION: MR BREAST WITHOUT AND WITH CONTRAST, BILATERAL CLINICAL INFORMATION: Patient's physician felt a palpable lump in the right breast upper outer quadrant/axilla. Patient has a strong family history of breast cancer including mother and aunt. COMPARISON: Screening mammogram June 21 25 June 2020 24 June 2022. TECHNIQUE: MR imaging of the breast was performed using T1, T2 and fat saturated techniques. Dynamic multiphase imaging was also performed after administration of intravenous gadolinium contrast agent. Computer generated 3-D reconstruction was utilized. FINDINGS: There is heterogeneous fibroglandular breast tissue with moderate background enhancement. LEFT BREAST: There is an enhancing foci in the upper central breast posterior depth series 1046 image 65 78 mm behind the nipple The additional area which probably represents background enhancement series 1046 image 61/126. No other suspicious enhancing masses or areas of nonmass enhancement. No architectural distortion. No internal mammary or axillary adenopathy. RIGHT BREAST: In the upper outer quadrant there is a 7 millimeter anterior to posterior by 7 mm transverse by 7 mm superior to inferior circumscribed oval enhancing mass about 3 to 4 cm from the nipple. Series 1044 image 56/126. No other enhancing masses or areas of nonmass enhancement. No architectural distortion. No internal mammary or axillary adenopathy. Limited views of the chest and abdomen are unremarkable. MR/MR breast BI wo/w con IMPRESSION: Left: 2 areas of probable background enhancement in the left breast upper central region for which six-month follow-up MRI is recommended for further evaluation of stability. Right: 7 mm oval enhancing mass in the upper outer quadrant. Recommend Second Look MRI directed ultrasound for further evaluation. If no ultrasound correlate is seen then MRI guided core needle biopsy is recommended at this time. Patient has a history of a right breast palpable lump felt by the patient's physician. Palpable lumps should first be evaluated with diagnostic mammography and ultrasound before MRI. Recommend ultrasound in the area of the palpable lump at the time of second look ultrasound as described above. ASSESSMENT: LEFT BREAST: BI-RADS 3 probably benign. Recommend six-month follow-up MRI for further evaluation of stability. RIGHT BREAST: BI-RADS 4 suspicious biopsy is recommended. RECOMMENDATIONS: Recommend Second Look MRI directed ultrasound of the right breast in the upper outer quadrant if no ultrasound correlate is seen then MRI guided core needle biopsy is recommended at this time. Electronically signed by: Yola Mora DO 09/06/2024 06:21 PM EST RP
[2024-09-01] MEDS: gadobutroL 7.5 ML VIAL IVPUSH (10:23)
== END 2024-09-01 09:17 | disposition home or self-care (01) ==
LOC: HO.MRI 09:16
PROVIDERS: PCP Internal Medicine; Visit Provider Internal Medicine
DX: N63.12 Unspecified lump in the right breast, upper inner quadrant (principal); R92.30 Dense breasts, unspecified; Z80.3 Family history of malignant neoplasm of breast
CPT/HCPCS: 77049; A9585

== ENCOUNTER 2024-09-10 08:21 | Outpatient (AMB) | payer BC, SELFPAY ==
--- NOTE | 2024-09-10 08:32 | A.OFFPC_ITS ---
Intake Visit Reasons: breast MRI result Allergies atenolol Allergy (Severe, Verified 09/10/24 08:33) Swelling amlodipine Adverse Reaction (Intermediate, Verified 09/10/24 08:33) ankle swollen Medication List - Last Reconciled 09/11/24 by Lizeth South MD albuterol sulfate 90 mcg/actuation (Ventolin HFA) 1 inh inhalation Q4-6H PRN Breo Ellipta 200-25 mcg/dose (fluticasone furoate-vilanterol) 1 inh inhalation DAILY 30 days NS cholecalciferol (vitamin D3) (Vitamin D3) 25 mcg PO DAILY losartan 25 mg PO BID 90 days pantoprazole 20 mg PO DAILY Tobacco use date assessed: 09/10/24 Fall risk assessment: No Falls in past year Last assessed Fall Risk: 09/10/24 Dental Screening Dental Screen Date: 09/10/24 Did you have a dental visit in the last 12 months?: Yes Did you have a dental problem in the last 6 months where you did not have access to dental care?: No Was dental information given to patient?: Patient has dentist HPI breast MRI result HPI Details This is a telemedicine visit Patient had MRI of breast on 08/22/2024 which showed ASSESSMENT: LEFT BREAST: BI-RADS 3 probably benign. Recommend six-month follow-up MRI for further evaluation of stability. RIGHT BREAST: BI-RADS 4 suspicious biopsy is recommended. Report was discussed with the patient She verbalized interest in surgeon at [facility] Patient will call in book her own appointment if she needed any assistance from us she will let us know [facility] Medical History Encounter for general adult medical examination with abnormal findings Acute sinusitis Dysuria Family history of ankylosing spondylitis Chest pain Abnormal EKG Upper respiratory tract infection Esophageal spasm Acute bronchitis Liver cyst Family history of rheumatoid arthritis Skin cancer screening COVID-19 vaccine series completed Osteoarthritis Hiatal hernia IBS (irritable bowel syndrome) GERD (gastroesophageal reflux disease) Surgical History Hx of oral surgery History of nasal septoplasty Hx of section Hx of colonoscopy H/O esophagogastroduodenoscopy Family History Mother Breast cancer Colon polyps High blood pressure Hypothyroid Father CVD (cardiovascular disease) Brother H/O heart artery stent Cancer Substance use disorder Social History Housing: House Are you a primary healthcare management consultant to a significant other at home: No Do you presently have visiting nurse or other home services: No Alcohol intake: current Alcohol intake frequency: a few times a month Alcohol type: wine Patient Tobacco Use Status: Former Tobacco user Tobacco use type: Cigarette Years Smoked: in high school e-Cigarette/Vaping Use: Never Used Second Hand Smoke Exposure: No service: No Current occupational status: employed Cognitive needs: No Hearing needs: No Vision needs: Yes Questionnaire PHQ-9 Over the last 2 weeks, how often have you been bothered by any of the following problems? 1. Little interest or pleasure in doing things: not at all 2. Feeling down, depressed, or hopeless: not at all 3. Trouble falling or staying asleep, or sleeping too much: several days 4. Feeling tired or having little energy: several days 5. Poor appetite or overeating: several days 6. Feeling bad about yourself - or that you are a failure or have let yourself or your family down: not at all 7. Trouble concentrating on things, such as reading the newspaper or watching television: not at all 8. Moving or speaking so slowly that other people could have noticed. Or the opposite - being so fidgety or restless that you have been moving around a lot more than usual: not at all 9. Thoughts that you would be better off or of hurting yourself in some way: not at all Total score: 3 Depression Screening Interpretation: Negative Depression Screening Done: Yes 99786 - PHQ-9 Billing: Yes Source: Developed by Drs. Jair Monique, Angela Velasco, Danile Whiteside and colleagues, with an educational lane from [employer]. Thrive Questionnaire Date Thrive assessed: 09/10/24 I am a: Patient What is your living situation today?: I have a steady place to live Within the past 12 months, did the food you bought not last and you didn't have the money to get more?: Never true Within the past 12 months, did you worry whether your food would run out before you got money to buy more?: Never true Do you have trouble paying for medicines?: No Do you have trouble getting transportation to medical appointments?: No Do you have trouble paying your heating and electricity bill?: No Do you have trouble taking care of your child, family member or friend?: No Do you have trouble with day-to-day activities such as bathing, preparing meals, shopping, managing finances, etc.?: No Are you currently unemployed and looking for a job?: No Are you interested in more education?: No Please select the resources that you would like help with: None Currently or been in a relationship where the following occur: No concerns reported THRIVE Score: 0 AUDIT C Alcohol Use Questionnaire (AUDIT-C) 1. How often do you have a drink containing alcohol?: Never 3. How often do you have six or more drinks on one occasion?: Never Total Score: 0 Score Reviewed/Action Taken: Yes HEAVENLY-7 AMB Questionnaire HEAVENLY-7 Date HEAVENLY - 7 assessed: 09/10/24 Feeling nervous, anxious, or on edge: 0 = Not at all Not being able to stop or control worryin = Not at all Worrying too much about different things: 0 = Not at all Trouble relaxin = Several days Being so restless that it is hard to sit still: 0 = Not at all Becoming easily annoyed or irritable: 1 = Several days Feeling afraid as if something awful might happen: 1 = Several days Total HEAVENLY-7 score (0-4 normal; 5-9 mild; 10-14 moderate; 15-21 severe): 3 Source: Developed by Drs. Jair Monique, Angela Velasco, Daniel Whiteside and colleagues, with an educational lane from [employer]. HEAVENLY-7 Assessment Billing HEAVENLY-7 Assessment Tool: HEAVENLY-7 Assessment 95714 Physical exam (Primary Care) Tobacco/Smoking Status: Tobacco use Status Tobacco use date assessed 09/10/24 09/10/24 08:34 Patient Tobacco Use Status Former Tobacco user 09/10/24 08:32 Tobacco use type Cigarette 09/10/24 08:32 e-Cigarette/Vaping Use Never Used 09/10/24 08:32 PHQ-9: PHQ-9 Score PHQ-9: Total score 3 09/11/24 07:30 Depression Screening Interpretation: Negative Thrive Assessment: Date of Thrive Assessment Date Thrive assessed 09/10/24 09/10/24 08:34 Currently or been in a relationship where the following occur: No concerns reported Telehealth Telehealth Telehealth Platform: [employer] Tracking Location of provider rendering services: practice address Location of patient: address on file Patient Identification confirmed using: Name, : Yes Telehealth method: voice only Patient verbally consented to treatment: Yes Patient verbally consented to billing insurance company: Yes Patient informed of any privacy concerns related to visit: Yes Coding Level of Care Code Tele Est Pt Level 3 (75987) Diagnoses Abnormal magnetic resonance imaging of right breast R92.8 Additional Codes HEAVENLY-7 Assessment Billing - HEAVENLY-7 Assessment Tool: HEAVENLY-7 Assessment 97001 ([id number]) PHQ-9 - 74599 - PHQ-9 Billing: Yes ([id number]) Assessment & Plan Assessment & Plan (1) Abnormal magnetic resonance imaging of right breast: Code(s): R92.8 - Other abnormal and inconclusive findings on diagnostic imaging of breast Category: Medical Plan This is a telemedicine visit Patient had MRI of breast on 08/22/2024 which showed ASSESSMENT: LEFT BREAST: BI-RADS 3 probably benign. Recommend six-month follow-up MRI for further evaluation of stability. RIGHT BREAST: BI-RADS 4 suspicious biopsy is recommended. Report was discussed with the patient She verbalized interest in surgeon at [facility] Patient will call in book her own appointment if she needed any assistance from us she will let us know
== END 2024-09-10 09:04 | disposition home or self-care (01) ==
LOC: HO.HMCC 08:21
PROVIDERS: PCP Internal Medicine; Visit Provider Internal Medicine
DX: R92.8 Other abnormal and inconclusive findings on diagnostic imaging of breast (principal)

== ENCOUNTER → 2024-09-10 08:21 | Outpatient (BNVA) | payer BC, SELFPAY | PROVIDERS: PCP Internal Medicine; Visit Provider Internal Medicine | DX: R92.8 Other abnormal and inconclusive findings on diagnostic imaging of breast (principal) | CPT/HCPCS: 96127 ==

== ENCOUNTER 2025-02-02 14:47 | Outpatient (AMB) | payer BC, SELFPAY ==
--- NOTE | 2025-02-02 14:55 | A.OFFPC_ITS ---
Vital Signs 02/02/25 14:56 Height 5 ft 5 in Weight 159 lb 2 oz BMI 26.5 BP 142/88 H Blood Pressure Location Rt brachial Position Sitting Pulse 82 Pulse Source Pulse Oximeter Temp 98.2 F Temp Source Oral Pulse Oximetry (%) 97 Oxygen Delivery Method Room Air Intake Visit Reasons: 6m follow up,resched Allergies atenolol Allergy (Severe, Verified 02/02/25 14:59) Swelling amlodipine Adverse Reaction (Intermediate, Verified 02/02/25 14:59) ankle swollen Medication List - Last Reconciled 02/02/25 by Lizeth South MD albuterol sulfate 90 mcg/actuation (Ventolin HFA) 1 inh inhalation Q4-6H PRN cholecalciferol (vitamin D3) (Vitamin D3) 25 mcg PO DAILY losartan 25 mg PO BID 90 days pantoprazole 20 mg PO DAILY Tobacco use date assessed: 02/02/25 Fall risk assessment: No Falls in past year Last assessed Fall Risk: 02/02/25 Dental Screening Dental Screen Date: 02/02/25 Did you have a dental visit in the last 12 months?: Yes Did you have a dental problem in the last 6 months where you did not have access to dental care?: No Was dental information given to patient?: Patient has dentist HPI 6m follow up,resched HPI Details History - The patient is a 64-year-old female pr esenting with hypertension and additional concerns. - Hypertension: The patient reports that her blood pressure was 144 mmHg. She missed her medication for three days due to attending her son's wedding but resumed taking it the day following her return. Typically, her blood pressure measures in the 130s. She declines an increase in medication dosage due to dizziness experienced during physical activities. - Negative breast biopsy: Recently under gone with a follow-up recommended in six months. - Onychomycosis: Noted thickened and gerry nful right toe nail, suspected fungal infection, and under consideration for podiatry consultation for nail clipping and potential fungal analysis. - Previous arm pain: Radiating pain reso lved over six months with self-healing. - Gastroesophageal reflux disease (GERD) : Managed with pantoprazole 20 mg daily with satisfactory control and no recent exacerbations. - Anxiety: Related to family health conc erns, particularly regarding her tpyrpuxs-wy-fro's recent diagnostic test - Thyroid nodule: Has a history of a thy roid nodule with an ultrasound conducted approximately a year ago. The washing machine repairer indicated annual monitoring was recommended. 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 No current symptoms attributable to this finding. - Wheezing: Occasional wheezing, she sto pped Breo due to improvement but should consider it upon symptom recurrence. Medical History: - Hypertension - Onychomycosis - Gastroesophageal reflux disease - Anxiety - Thyroid nodule - Wheezing (possible asthma) Medications: - Pantoprazole 20 mg daily for gastroeso phageal reflux disease - Blood pressure medication losartan 50 mg Social History: - Recently attended son's wedding - Concerns about ksmutsry-aa-irb's Celso liu's disease diagnosis - Reports occasional dizziness during ph ysical activity Diagnostic Results: - Labs in July (results not detailed ) - Thyroid ultrasound: 0.6 cm left-sided thyroid nodule, 0.7 x 0.4 cm soft tissue noted on the left side lymph node Problem List - Negative breast biopsy - Hypertension - Onychomycosis - Gastroesophageal reflux disease - Anxiety - venous anomaly (superior vena cava va riation) - Thyroid node - Wheezing (possible asthma) allergy rel ated asthma Patient Instructions - Continue current medications as prescr ibed. - Monitor blood pressure at home. - If wheezing returns, restart use of in haler. - Follow up with molding press operator for toenail evaluation. Referral placed - Undergo fasting blood tests as ordered . - Maintain thyroid ultrasound follow-up as part of routine health monitoring. Review of Systems - General: No fever no chills - Neurological: No headaches no dizziness - Ear nose throat: No sore throat no hearing difficulty no ear pain - Cardiovascular: No syncope, no chest pain, no palpitations - Gastrointestinal: No nausea vomiting or diarrhea - Endocrine: No polyuria polydipsia no heat intolerance - Genitourinary: No dysuria , no blood in urine Physical Exam General: No acute distress HEENT: No acute findings Neck: Supple Respiratory system: Wheezing noted, advised to use inhaler Cardiovascular: S1-S2 regular in rate and rhythm Gastrointestinal: No pain Extremities: No new findings left foot big toe thick deformed DIG[employer]ETING LEAD: Alert awake oriented x3 motor sensory intact Skin: Normal turgor [facility] Medical History Encounter for general adult medical examination with abnormal findings Acute sinusitis Dysuria Family history of ankylosing spondylitis Chest pain Abnormal EKG Upper respiratory tract infection Esophageal spasm Acute bronchitis Liver cyst Family history of rheumatoid arthritis Skin cancer screening COVID-19 vaccine series completed Osteoarthritis Hiatal hernia IBS (irritable bowel syndrome) GERD (gastroesophageal reflux disease) Surgical History Hx of oral surgery History of nasal septoplasty Hx of section Hx of colonoscopy H/O esophagogastroduodenoscopy Family History Mother Breast cancer Colon polyps High blood pressure Hypothyroid Father CVD (cardiovascular disease) Brother H/O heart artery stent Cancer Substance use disorder Social History Housing: House Are you a primary care asst to a significant other at home: No Do you presently have visiting nurse or other home services: No Alcohol intake: current Alcohol intake frequency: a few times a month Alcohol type: wine Patient Tobacco Use Status: Former Tobacco user Tobacco use type: Cigarette Years Smoked: in high school e-Cigarette/Vaping Use: Never Used Second Hand Smoke Exposure: No service: No Current occupational status: employed Cognitive needs: No Hearing needs: No Vision needs: Yes Questionnaire PHQ-9 Over the last 2 weeks, how often have you been bothered by any of the following problems? 1. Little interest or pleasure in doing things: not at all 2. Feeling down, depressed, or hopeless: not at all 3. Trouble falling or staying asleep, or sleeping too much: nearly every day 4. Feeling tired or having little energy: several days 5. Poor appetite or overeating: not at all 6. Feeling bad about yourself - or that you are a failure or have let yourself or your family down: not at all 7. Trouble concentrating on things, such as reading the newspaper or watching television: not at all 8. Moving or speaking so slowly that other people could have noticed. Or the opposite - being so fidgety or restless that you have been moving around a lot more than usual: not at all 9. Thoughts that you would be better off or of hurting yourself in some way: not at all Total score: 4 Depression Screening Interpretation: Negative Depression Screening Done: Yes 21584 - PHQ-9 Billing: Yes Source: Developed by Drs. Jair Monique, Angela Velasco, Daniel Whiteside and colleagues, with an educational lane from [employer]. Thrive Questionnaire Date Thrive assessed: 02/02/25 I am a: Patient What is your living situation today?: I have a steady place to live Within the past 12 months, did the food you bought not last and you didn't have the money to get more?: Never true Within the past 12 months, did you worry whether your food would run out before you got money to buy more?: Never true Do you have trouble paying for medicines?: No Do you have trouble getting transportation to medical appointments?: No Do you have trouble paying your heating and electricity bill?: No Do you have trouble taking care of your child, family member or friend?: No Do you have trouble with day-to-day activities such as bathing, preparing meals, shopping, managing finances, etc.?: No Are you currently unemployed and looking for a job?: Yes Are you interested in more education?: No Please select the resources that you would like help with: None Currently or been in a relationship where the following occur: No concerns reported THRIVE Score: 0 AUDIT C Alcohol Use Questionnaire (AUDIT-C) 1. How often do you have a drink containing alcohol?: 2-3 times a week 2. How many drinks containing alcohol do you have on a typical day when you are drinking?: 1 or 2 3. How often do you have six or more drinks on one occasion?: Never Total Score: 3 Score Reviewed/Action Taken: Yes HEAVENLY-7 AMB Questionnaire HEAVENLY-7 Date HEAVENLY - 7 assessed: 02/02/25 Feeling nervous, anxious, or on edge: 0 = Not at all Not being able to stop or control worryin = More than half the days Worrying too much about different things: 1 = Several days Trouble relaxin = Not at all Being so restless that it is hard to sit still: 0 = Not at all Becoming easily annoyed or irritable: 0 = Not at all Feeling afraid as if something awful might happen: 0 = Not at all Total HEAVENLY-7 score (0-4 normal; 5-9 mild; 10-14 moderate; 15-21 severe): 3 Source: Developed by Drs. Jair Monique, Angela Velasco, Daniel Whiteside and colleagues, with an educational lane from [employer]. Physical exam (Primary Care) Vital Signs: Last Vital Signs Temp 98.2 F 02/02/25 14:56 Pulse 82 02/02/25 14:56 BP 142/88 H 02/02/25 14:56 Pulse Ox 97 02/02/25 14:56 Oxygen Delivery Method Room Air 02/02/25 14:56 BMI result Body Mass Index 26.5 Tobacco/Smoking Status: Tobacco use Status Tobacco use date assessed 02/02/25 02/02/25 15:02 Patient Tobacco Use Status Former Tobacco user 02/02/25 15:02 Tobacco use type Cigarette 02/02/25 15:02 e-Cigarette/Vaping Use Never Used 02/02/25 15:02 PHQ-9: PHQ-9 Score PHQ-9: Total score 4 02/02/25 15:23 Depression Screening Interpretation: Negative Thrive Assessment: Date of Thrive Assessment Date Thrive assessed 02/02/25 02/02/25 15:02 Currently or been in a relationship where the following occur: No concerns reported Coding Level of Care Code Est Pt Level 5 (86849) Diagnoses Hypertension, essential I10 Pre-diabetes R73.03 Thyroid nodule E04.1 Toenail deformity L60.8 Gastroesophageal reflux disease without esophagitis K21.9 Esophagitis presence: without esophagitis Irritable bowel syndrome with both constipation and diarrhea K58.2 Irritable bowel syndrome type: with both diarrhea and constipation Vitamin D deficiency E55.9 Additional Codes PHQ-9 - 76422 - PHQ-9 Billing: Yes ([id number]) Time Spent (min) 40 Comment Tykf-mb-[id number], reviewing imaging, chart, labs, coordination of care Assessment & Plan Assessment & Plan (1) Hypertension, essential: Code(s): I10 - Essential (primary) hypertension Category: Medical (2) Pre-diabetes: Code(s): R73.03 - Prediabetes Category: Medical (3) Thyroid nodule: Code(s): E04.1 - Nontoxic single thyroid nodule Category: Medical (4) Toenail deformity: Code(s): L60.8 - Other nail disorders Category: Medical (5) GERD (gastroesophageal reflux disease): Code(s): K21.9 - Gastro-esophageal reflux disease without esophagitis Category: Medical Qualifiers: Esophagitis presence: without esophagitis Qualified Code(s): K21.9 - Gastro-esophageal reflux disease without esophagitis (6) IBS (irritable bowel syndrome): Comment: Stable Code(s): K58.9 - Irritable bowel syndrome, unspecified Category: Medical Qualifiers: Irritable bowel syndrome type: with both diarrhea and constipation Qualified Code(s): K58.2 - Mixed irritable bowel syndrome (7) Vitamin D deficiency: Code(s): E55.9 - Vitamin D deficiency, unspecified Category: Medical Plan History - The patient is a 64-year-old female presenting with hypertension and additional concerns. - Hypertension: The patient reports that her blood pressure was 144 mmHg. She missed her medication for three days due to attending her son's wedding but resumed taking it the day following her return. Typically, her blood pressure measures in the 130s. She declines an increase in medication dosage due to dizziness experienced during physical activities. - Negative breast biopsy: Recently undergone with a follow-up recommended in six months. - Onychomycosis: Noted thickened and painful right toe nail, suspected fungal infection, and under consideration for podiatry consultation for nail clipping and potential fungal analysis. - Previous arm pain: Radiating pain resolved over six months with self-healing. - Gastroesophageal reflux disease (GERD): Managed with pantoprazole 20 mg daily with satisfactory control and no recent exacerbations. - Anxiety: Related to family health concerns, particularly regarding her woquroec-yi-qie's recent diagnostic test - Thyroid nodule: Has a history of a thyroid nodule with an ultrasound conducted approximately a year ago. The washing machine repairer indicated annual monitoring was recommended. 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 No current symptoms attributable to this finding. - Wheezing: Occasional wheezing, she stopped Breo due to improvement but should consider it upon symptom recurrence. Medical History: - Hypertension - Onychomycosis - Gastroesophageal reflux disease - Anxiety - Thyroid nodule - Wheezing (possible asthma) Medications: - Pantoprazole 20 mg daily for gastroesophageal reflux disease - Blood pressure medication losartan 50 mg Social History: - Recently attended son's wedding - Concerns about [id number]'s Tyron's disease diagnosis - Reports occasional dizziness during physical activity Diagnostic Results: - Labs in July (results not detailed) - Thyroid ultrasound: 0.6 cm left-sided thyroid nodule, 0.7 x 0.4 cm soft tissue noted on the left side lymph node Problem List - Negative breast biopsy - Hypertension - Onychomycosis - Gastroesophageal reflux disease - Anxiety - venous anomaly (superior vena cava variation) - Thyroid node - Wheezing (possible asthma) allergy related asthma Patient Instructions - Continue current medications as prescribed. - Monitor blood pressure at home. - If wheezing returns, restart use of inhaler. - Follow up with molding press operator for toenail evaluation. Referral placed - Undergo fasting blood tests as ordered. - Maintain thyroid ultrasound follow-up as part of routine health monitoring. Orders: Orders Comprehensive [place]. Panel Fast Today E55.9 - Vitamin D deficiency, unspecified, I10 - Essential (primary) hypertension, K21.9 - Gastro-esophageal reflux disease without esophagitis, K58.9 - Irritable bowel syndrome, unspecified, R73.03 - Prediabetes Lipid Panel Today E55.9 - Vitamin D deficiency, unspecified, I10 - Essential (primary) hypertension, K21.9 - Gastro-esophageal reflux disease without esophagitis, K58.9 - Irritable bowel syndrome, unspecified, R73.03 - Prediabetes TSH reflex Free T4 Today E04.1 - Nontoxic single thyroid nodule Complete Blood Count Auto Diff Today E55.9 - Vitamin D deficiency, unspecified, I10 - Essential (primary) hypertension, K21.9 - Gastro-esophageal reflux disease without esophagitis, K58.9 - Irritable bowel syndrome, unspecified, R73.03 - Prediabetes US thyroid Today E04.1 - Nontoxic single thyroid nodule Referrals Podiatry Referral L60.8 - Other nail disorders Medications: Changed From losartan 25 mg PO BID 90 days 180 tabs 0RF To losartan 50 mg PO ONCE 90 days 90 tabs 0RF
[2025-02-02 14:56] VITALS: BP 142/88; PULSE 82; TEMP 36.8; O2SAT 97; BMI 26.5
--- OUTSIDE RECORDS SUMMARY | 2025-02-02 16:32 | XMS_ITS | Encounter Summary ---
Author Organization [facility] Address [address] [place] [address] Care Team Providers Care Seed Sorter Name Role Phone Lizeth South Primary Care Provider [phone] Encounter Details Date Type Department Care Team (Late st Contact Info) Description 10/20/2024 Orders Only [facility] Building Mammography [address] [place] [address], [address] [place] [address] Micaela Chin MD [address] [place] [id number] Social History Tobacco Use Types Packs/Day Years Used Date Smoking Tobacco: Former Cigarettes Passive Smoke Exposure: Past Smokeless Tobacco: Never Alcohol Use Standard Drinks/Week Comments Yes 0 (1 standard drink = 0.6 oz pur e alcohol) Comments No Sex and Gender Information Value Date Recorded Sex Assigned at Female 06/23/2023 8:35 AM EDT Legal Sex Female 11:59 PM EDT Gender Identity Female 06/23/2023 8:35 AM EDT Sexual Orientation Straight 06/23/2023 8: 35 AM EDT documented as of this encounter Plan of Treatment Upcoming Encounters Date Type Department Care Team (Late st Contact Info) Description 04/07/2025 3:45 PM EDT Telehealth [facility] [address] [place] [id number] C Software Developer: Amy Smith MD [address] [place] [id number] documented as of this encounter Visit Diagnoses Not on filedocumented in this encounter Care Teams Seed Sorter Relationship Specialty Start Date End Date Lizeth South [address] [place] [address] PCP - General Internal Medicine 03/20/23 documented as of this encounter
== END 2025-02-02 15:29 | disposition home or self-care (01) ==
LOC: HO.HMCC 14:48
PROVIDERS: PCP Internal Medicine; Visit Provider Internal Medicine
DX: I10 Essential (primary) hypertension (principal); R73.03 Prediabetes; E04.1 Nontoxic single thyroid nodule; L60.8 Other nail disorders; K21.9 Gastro-esophageal reflux disease without esophagitis; K58.2 Mixed irritable bowel syndrome; E55.9 Vitamin D deficiency, unspecified

== ENCOUNTER → 2025-02-02 14:47 | Outpatient (BNVA) | payer BC, SELFPAY | PROVIDERS: PCP Internal Medicine; Visit Provider Internal Medicine | DX: I10 Essential (primary) hypertension (principal); B35.1 Tinea unguium; K21.9 Gastro-esophageal reflux disease without esophagitis; F41.9 Anxiety disorder, unspecified; E04.1 Nontoxic single thyroid nodule; R06.2 Wheezing; R73.03 Prediabetes; L60.8 Other nail disorders; K58.2 Mixed irritable bowel syndrome; E55.9 Vitamin D deficiency, unspecified; K58.9 Irritable bowel syndrome, unspecified | CPT/HCPCS: 96127 ==

== ENCOUNTER 2025-02-26 09:32 | Outpatient (AMB) | payer BC, SELFPAY ==
--- NOTE | 2025-02-26 09:33 | A.OFFVIS_ITS ---
Vital Signs 02/26/25 09:35 Height 5 ft 5 in Weight 156 lb 8.451 oz BMI 26.0 BP 146/67 H Blood Pressure Location Lt brachial Position Sitting Pulse 64 Intake Visit Reasons: 1 year follow up Allergies atenolol Allergy (Severe, Verified 02/26/25 09:35) Swelling amlodipine Adverse Reaction (Intermediate, Verified 02/26/25 09:35) ankle swollen HPI HPI 1 year follow up: Details: Assessment & Plan (1) GERD (gastroesophageal reflux disease): Code(s): K21.9 - Gastro-esophageal reflux disease without esophagitis Category: Medical Qualifiers: Esophagitis presence: without esophagitis Qualified Code(s): K21.9 - Gastro-esophageal reflux disease without esophagitis (2) 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 Still of uncertain etiology. She had a completely negative cardiac work up. Her swallowing has been stable. She will have intermittent abd pain and then she will have N/V/D once and then she is fine. She takes magnesium for her muscle aches. She just had a thyroid scan for a nodule they are watching. ROV 6 mos. Medications: Refilled pantoprazole 20 mg PO DAILY 90 tabs 3RF K21.9 - Gastro-esophageal reflux disease without esophagitis, K29.30 - Chronic superficial gastritis without bleeding Today's visit She continues to do well on her pantoprazole 20 mg once a day. This has mostly resolved her chest pain and she only occasionally has trouble with swallowing from her dysphagia lusoria. She remains satisfied with the GI regimen. Return office visit 1 year, next year talk about colonoscopy screening because she will be due. [facility] Medical History (Updated 02/26/25 @ 09:38 by PEYTON Meza) Vaginal itching Encounter for general adult medical examination with abnormal findings Cough Wheezing Bronchitis Chronic superficial gastritis without bleeding Acute sinusitis Dysuria Family history of ankylosing spondylitis Chest pain Abnormal EKG Upper respiratory tract infection Esophageal spasm Acute bronchitis Liver cyst Family history of rheumatoid arthritis Skin cancer screening COVID-19 vaccine series completed Osteoarthritis Hiatal hernia IBS (irritable bowel syndrome) GERD (gastroesophageal reflux disease) Surgical History Hx of oral surgery History of nasal septoplasty Hx of section Hx of colonoscopy H/O esophagogastroduodenoscopy Family History Mother Breast cancer Colon polyps High blood pressure Hypothyroid Father CVD (cardiovascular disease) Brother H/O heart artery stent Cancer Substance use disorder Social History Housing: House Are you a primary group care worker to a significant other at home: No Do you presently have visiting nurse or other home services: No Alcohol intake: current Alcohol intake frequency: a few times a month Alcohol type: wine Patient Tobacco Use Status: Former Tobacco user Tobacco use type: Cigarette Years Smoked: in high school e-Cigarette/Vaping Use: Never Used Second Hand Smoke Exposure: No service: No Current occupational status: employed Cognitive needs: No Hearing needs: No Vision needs: Yes Review of Systems Const Denies fatigue, Denies fever(s), Denies night sweats, Denies poor appetite and Denies weight loss Eyes Details: glasses Reports requires corrective lenses ENT Reports Normal hearing present, Denies dental pain, Denies dysphagia, Denies hearing loss, Denies mouth pain, Denies odynophagia, Denies throat swelling, Denies tongue swelling and Reports other (Dentition adequate) Card Reports no additional complaints Resp Reports no additional complaints GI Details: Denies abdominal pain, Denies melena, Denies bloating, Denies hematochezia, Denies constipation, Denies GI cramping, Denies dysphagia, Denies excessive flatus, Denies early satiety, Reports heartburn, Denies diarrhea, Denies nausea, Denies odynophagia, Denies vomiting and Denies hematemesis Skin/Breast Denies pruritus, Denies lesions, Denies rash and Denies jaundice Neuro Reports Normal hearing present and Denies Abnormal speech present Endo Denies fatigue Aller/Immun Denies throat swelling and Denies tongue swelling Physical Exam Vital Signs: Last Vital Signs Pulse 64 02/26/25 09:35 BP 146/67 H 02/26/25 09:35 BMI result Body Mass Index 26.0 Const General: cooperative, no acute distress, well developed and well groomed Nutritional Appearance: well nourished Orientation/consciousness: oriented to person, oriented to place and oriented to time Limitations: No language barrier HEENT Head: Yes normocephalic and Yes atraumatic Eyes General: appearance normal, both eyes and all related structures Pupils: Equal, round and reactive pupils present Neck Neck: Yes normal visual inspection and Yes no lymphadenopathy Thyroid: Thyroid normal Resp Effort & Inspection: normal respiratory effort and able to speak in complete sentences Auscultation: clear to auscultation bilaterally Cardio Rate: regular rate Rhythm: regular rhythm Heart sounds: Normal, physiologic split S2 sound present Peripheral pulses: radial pulses present and posterior tibial pulses present GI Inspection: No distended and No Abdominal panniculus present Palpation (GI): Soft to palpation, nontender, no guarding, not rigid and No hepatosplenomegaly present Percussion: Yes normal to percussion Auscultation: normal bowel sounds Rectal Exam - Female: deferred Skin General skin exam: no rashes or lesions noted, turgor normal, skin not dry, no jaundice, No spider nevi and no striae Rashes: no rashes Nails: normal Neuro General: oriented to person, oriented to place and oriented to time Cranial nerves: Yes Equal, round and reactive pupils present and Yes Normal hearing present Speech: No Abnormal speech present Extrem General: Yes normal to inspection, No clubbing, No cyanosis and No edema Psych Appearance: grossly normal and well kempt Mental Status: mental status grossly normal Speech and movement: Normal speech and movement present Affect: normal affect Attitude: cooperative Thought process: Normal thought process present and not confabulating Thought content: Normal thought content present Insight: Good insight present (Psych) Judgement: Good judgement present (Psych) Assessment & Plan Assessment & Plan (1) GERD (gastroesophageal reflux disease): Code(s): K21.9 - Gastro-esophageal reflux disease without esophagitis Category: Medical Qualifiers: Esophagitis presence: without esophagitis Qualified Code(s): K21.9 - Gastro-esophageal reflux disease without esophagitis (2) Dysphagia lusoria: Code(s): Q27.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 This has mostly resolved her chest pain and she only occasionally has trouble with swallowing from her dysphagia lusoria. She remains satisfied with the GI regimen. Return office visit 1 year, next year talk about colonoscopy screening because she will be due. Coding Level of Care Code Est Pt Level 3 (18531) Diagnoses Gastroesophageal reflux disease without esophagitis K21.9 Esophagitis presence: without esophagitis Dysphagia lusoria Q27.8
[2025-02-26 09:35] VITALS: BP 146/67; PULSE 64; BMI 26.0
--- OUTSIDE RECORDS SUMMARY | 2025-02-26 09:57 | XMS_ITS | Encounter Summary ---
Author Organization [facility] Address [address] [place] [address] Care Team Providers Care Farm Machine Operator Name Role Phone Lizeth South Primary Care Provider [phone] Encounter Details Date Type Department Care Team (Late st Contact Info) Description 10/20/2024 Orders Only [facility] Building [facility] [address] [facility], [address]th [place] [address] Micaela Chin MD [address] [place] [address] Social History Tobacco Use Types Packs/Day Years [...] as of this encounter Plan of Treatment Not on file documented as of this encounter Visit Diagnoses Not on filedocumented in this encounter Care Teams Farm Machine Operator Relationship Specialty Start Date End Date Lizeth South [address] [place] [address] PCP - General Internal Medicine 03/20/23 documented as of this encounter
== END 2025-02-26 09:51 | disposition home or self-care (01) ==
LOC: HO.HGI 09:32
PROVIDERS: PCP Internal Medicine; Visit Provider Nurse Practitioner
DX: K21.9 Gastro-esophageal reflux disease without esophagitis (principal); Q27.8 Other specified congenital malformations of peripheral vascular system
CPT/HCPCS: 99213

== ENCOUNTER 2025-03-08 15:27 | Outpatient (REF) | payer BC, SELFPAY ==
--- NOTE | ~2025-03-08 | US_ITS ---
EXAMINATION: US THYROID HISTORY: E04.1 - Nontoxic single thyroid nodule TECHNIQUE: Real-time grayscale ultrasound imaging was performed and images were reviewed. COMPARISON: Comparison is made with the prior examination dated 11/08/2023. FINDINGS: SIZE: The right thyroid lobe measures 4.4 x 1.7 x 1.4 cm. The left thyroid lobe measures 4.8 x 1.4 x 1.3 cm. The isthmus measures 2 mm. FLOW: Flow to the gland is normal. ECHOGENICITY: The echotexture of the gland is homogeneous. NODULES: Again seen is a nodule at the lower pole on the left measuring 8 x 3 x 6 mm with imaging characteristics as described below. Nodule #: 1 Location: [Lower pole Shape: Wider than tall (0 points) Margins: Ill-defined (0 points) Echotexture: Isoechoic (1 point) Composition: Solid (2 points) Calcifications: None (0 points) Total points: 3 TIRADS: TR3: Mildly suspicious. Inferior to the left thyroid node lobe, there is a 6 x 4 x 4 mm echogenic nodule. US/US thyroid IMPRESSION: 1. Stable subcentimeter nodule at the lower pole of the left thyroid lobe. 2. 6 x 4 x 4 mm echogenic nodule inferior to the lower pole of the left thyroid lobe. This could represent a parathyroid adenoma or possibly a lymph node with a prominent fatty hilum and minimal cortex. Clinical correlation is suggested. ACR TI-RADS Guidelines TR1 (0 points): Benign, No follow-up or biopsy required TR2 (2 points): Not Suspicious, No biopsy or follow up indicated TR3 (3 points): Mildly Suspicious, FNA if >= 2.5 cm, Follow if >= 1.5 cm TR4 (4-6 points): Moderately Suspicious, FNA if >= 1.5 cm, Follow if >= 1.0 cm TR5 (>=7 points): Highly Suspicious, FNA if >= 1.0 cm, Follow if >= 0.5 cm Electronically signed by: Jair Sol MD 03/08/2025 03:54 PM EDT
--- OUTSIDE RECORDS SUMMARY | 2025-03-08 15:41 | XMS_ITS | Encounter Summary ---
Author Organization [facility] Address [address] [place] [address] Care Team Providers Care Supervisor Ornamental Ironworking Name Role Phone Lizeth South Primary Care Provider [phone] Encounter Details Date Type Department Care Team (Late st Contact Info) Description 10/20/2024 Orders Only [address], [address] [place] [address] Micaela Chin MD [address] [place] [address] Social History Tobacco Use Types Packs/Day Years [...] on filedocumented in this encounter Care Teams Supervisor Ornamental Ironworking Relationship Specialty Start Date End Date Lizeth South [address] [place] [address] PCP - General Internal Medicine 03/20/23 documented as of this encounter
--- OUTSIDE RECORDS SUMMARY | 2025-03-08 15:42 | XMS_ITS | Patient Health Record ---
Author Organization [facility] Address [address] [place] [address] Care Team Providers Care Picker Operator Name Role Phone Brannon SOFIA, Asma Primary Care Provider Ward Owens Jr Reason For Referral No Information Medications Medication SIG (Take, Route, Frequency, Duration) Notes Start Date End Date Status Albuterol Sulfate HFA 108 (90 Base) MCG/ACT 2 puffs as needed Inhalation every 4 hrs Active MoviPrep 100 GM as directed before colonoscopy Orally for 1 dose 11/17/2015 Active Vitamin D (Ergocalciferol) 500 1 capsule Orally ONCE A DAY Active Pantoprazole Sodium 40 MG 1 tablet Orall y Once a day for 30 Active Problems Problem Type SNOMED Code ICD Code Onset Dates Problem Status W/U Status Risk Notes Problem 371717441 Colon cancer screening (Z12.11) Active confirmed Problem 84496504 Irritable bowel syndrome without diarrhea (K58.9) Active confirmed Problem 203322988 Gastroesophageal reflux disease without esophagitis (K21.9) Active confirmed Plan Of Treatment Future Test Test Name Order Date UPPER GI ENDOSCOPY 08/06/2014 COLONOSCOPY 08/06/2014 COLONOSCOPY 11/17/2015 Insurance Providers Payer Name Payer Address Payer Phone Subscriber Number Group Number Insured Name Patient Relationship to Insured Coverage Start Date Coverage End Date [facility] [address] [place] [phone] [id number] AURA SURESH Self - patient is the insured Medical (General) History Medical History History ICD Code colonoscopy 1-19-2011 colon polyp history of irritable bowel syndrome impaired glucose tolerance asthma Denies [place],DM,CVA,Lung disease,renal dise ase Surgical History Surgery Date(Month/Year) Caesarean section x 4 sinus surgery Graft[facility] in [facility]
== END 2025-03-08 15:28 | disposition home or self-care (01) ==
LOC: HO.HMGCX 15:27
PROVIDERS: PCP Internal Medicine; Visit Provider Internal Medicine
DX: E04.1 Nontoxic single thyroid nodule (principal)
CPT/HCPCS: 76536

== ENCOUNTER → 2025-03-08 15:29 | Outpatient (BNV) | payer BC, SELFPAY | PROVIDERS: PCP Internal Medicine; Visit Provider Radiology Diagnostic Radiology | DX: E04.1 Nontoxic single thyroid nodule (principal) | CPT/HCPCS: 76536 ==

== ENCOUNTER 2025-03-11 08:23 | Outpatient (AMB) | payer BC, SELFPAY ==
--- OUTSIDE RECORDS SUMMARY | 2025-03-11 08:36 | XMS_ITS | Encounter Summary ---
Author Organization [facility] Address [address] [place] [address] Care Team Providers Care Handkerchief Folder Name Role Phone Lizeth South Primary Care Provider [phone] Encounter Details Date Type Department Care Team (Late st Contact Info) Description 10/20/2024 Orders Only [address], [address] [place] [address] Micaela Chin MD [address] [place] [address] Social History Tobacco Use Types Packs/Day Years [...] on filedocumented in this encounter Care Teams Handkerchief Folder Relationship Specialty Start Date End Date Lizeth South [address] [place] [address] PCP - General Internal Medicine 03/20/23 documented as of this encounter
--- OUTSIDE RECORDS SUMMARY | 2025-03-11 08:36 | XMS_ITS | Patient Health Record ---
Author Organization [facility] Address [address] [place] [address] Care Team Providers Care Conservation Officer Name Role Phone Brannon SOFIA, Asma Primary Care Provider Ward Owens Jr [phone] Reason For Referral No Information Medications Medication [...] Problem Status W/U Status Risk Notes Problem [id number] Colon cancer screening (Z12.11) Active confirmed Problem 97078864 Irritable bowel syndrome without diarrhea (K58.9) Active confirmed Problem 158007502 Gastroesophageal reflux disease without esophagitis (K21.9) Active confirmed Plan Of Treatment Future Test Test Name Order Date UPPER GI ENDOSCOPY 08/06/2014 COLONOSCOPY 08/06/2014 COLONOSCOPY 11/17/2015 Insurance Providers Payer Name Payer Address Payer Phone Subscriber Number Group Number Insured Name Patient Relationship to Insured Coverage Start Date Coverage End Date [facility] [address] [place] [phone] [id number] AURA SURESH Self - patient is the insured Medical (General) History Medical History History ICD Code colonoscopy 1-19-2011 colon polyp history of irritable bowel syndrome impaired glucose tolerance asthma Denies [place],DM,CVA,Lung disease,renal dise ase Surgical History Surgery Date(Month/Year) Caesarean section x 4 sinus surgery Grafting in [facility]
--- NOTE | 2025-03-11 09:58 | MHC.PC.OV ---
Intake Visit Reasons: follow up Allergies atenolol Allergy (Severe, Verified 02/26/25 09:35) Swelling amlodipine Adverse Reaction (Intermediate, Verified 02/26/25 09:35) ankle swollen Medication List - Last Reconciled 03/11/25 by Lizeth South MD albuterol sulfate 90 mcg/actuation (Ventolin HFA) 1 inh inhalation Q4-6H PRN cholecalciferol (vitamin D3) (Vitamin D3) 25 mcg PO DAILY losartan 50 mg PO ONCE 90 days pantoprazole 20 mg PO DAILY Tobacco use date assessed: 02/02/25 Dental Screening Dental Screen Date: 02/02/25 HPI follow up HPI Details History - The patient is a 65-year-old female presenting with complaints of general tiredness. - The patient has not yet completed laboratory tests previously ordered, including a thyroid panel, due to her busy schedule. She is planning to complete these tests promptly. - Ultrasound findings reveal a stable issue on the left lobe of the thyroid gland. No significant changes were noted compared to previous imaging. - The ultrasound also indicated a possible parathyroid adenoma or a lymph node below the thyroid. Problem List - nodule left lobe of the thyroid stable compare to US done last year - Potential parathyroid adenoma Patient Instructions - Complete the laboratory tests, including the thyroid panel, as soon as possible. - Schedule a telehealth consultation if there are questions or concerns after reviewing lab results. Review of Systems - General: No fever no chills - Neurological: No headaches no dizziness - Ear nose throat: No sore throat no hearing difficulty no ear pain - Cardiovascular: No syncope, no chest pain, no palpitations - Gastrointestinal: No nausea vomiting or diarrhea PFSH Medical History Vaginal itching Encounter for general adult medical examination with abnormal findings Cough Wheezing Bronchitis Chronic superficial gastritis without bleeding Acute sinusitis Dysuria Family history of ankylosing spondylitis Chest pain Abnormal EKG Upper respiratory tract infection Esophageal spasm Acute bronchitis Liver cyst Family history of rheumatoid arthritis Skin cancer screening COVID-19 vaccine series completed Osteoarthritis Hiatal hernia IBS (irritable bowel syndrome) GERD (gastroesophageal reflux disease) Surgical History Hx of oral surgery History of nasal septoplasty Hx of section Hx of colonoscopy H/O esophagogastroduodenoscopy Family History Mother Breast cancer Colon polyps High blood pressure Hypothyroid Father CVD (cardiovascular disease) Brother H/O heart artery stent Cancer Substance use disorder Social History Housing: House Are you a primary healthcare administration internship to a significant other at home: No Do you presently have visiting nurse or other home services: No Alcohol intake: current Alcohol intake frequency: a few times a month Alcohol type: wine Patient Tobacco Use Status: Former Tobacco user Tobacco use type: Cigarette Years Smoked: in high school e-Cigarette/Vaping Use: Never Used Second Hand Smoke Exposure: No service: No Current occupational status: employed Cognitive needs: No Hearing needs: No Vision needs: Yes Questionnaire Thrive Questionnaire Date Thrive assessed: 02/02/25 I am a: Patient What is your living situation today?: I have a steady place to live Within the past 12 months, did the food you bought not last and you didn't have the money to get more?: Never true Within the past 12 months, did you worry whether your food would run out before you got money to buy more?: Never true Do you have trouble paying for medicines?: No Do you have trouble getting transportation to medical appointments?: No Do you have trouble paying your heating and electricity bill?: No Do you have trouble taking care of your child, family member or friend?: No Do you have trouble with day-to-day activities such as bathing, preparing meals, shopping, managing finances, etc.?: No Are you currently unemployed and looking for a job?: Yes Are you interested in more education?: No Please select the resources that you would like help with: None Currently or been in a relationship where the following occur: No concerns reported THRIVE Score: 0 HEAVENLY-7 AMB Questionnaire HEAVENLY-7 Date HEAVENLY - 7 assessed: 02/02/25 Source: Developed by Drs. Jair Monique, Angela Velasco, Daniel Whiteside and colleagues, with an educational lane from [employer]. Physical exam (Primary Care) Tobacco/Smoking Status: Tobacco use Status Tobacco use date assessed 02/02/25 03/11/25 09:59 Patient Tobacco Use Status Former Tobacco user 03/11/25 09:59 Tobacco use type Cigarette 03/11/25 09:59 e-Cigarette/Vaping Use Never Used 03/11/25 09:59 Thrive Assessment: Date of Thrive Assessment Date Thrive assessed 02/02/25 03/11/25 09:59 Currently or been in a relationship where the following occur: No concerns reported Telehealth Telehealth Telehealth Platform: [employer] Location of provider rendering services: practice address Location of patient: address on file Patient Identification confirmed using: Name, : Yes Telehealth method: voice only Patient verbally consented to treatment: Yes Patient verbally consented to billing insurance company: Yes Patient informed of any privacy concerns related to visit: Yes Minutes spent on Phone/Video with Pt.: 13 Coding Level of Care Code Tele Est Pt Level 3 (19758) Diagnoses Thyroid nodule E04.1 Assessment & Plan Assessment & Plan (1) Thyroid nodule: Code(s): E04.1 - Nontoxic single thyroid nodule Category: Medical Plan History - The patient is a 65-year-old female presenting with complaints of general tiredness. - The patient has not yet completed laboratory tests previously ordered, including a thyroid panel, due to her busy schedule. She is planning to complete these tests promptly. - Ultrasound findings reveal a stable issue on the left lobe of the thyroid gland. No significant changes were noted compared to previous imaging. - The ultrasound also indicated a possible parathyroid adenoma or a lymph node below the thyroid. Problem List - nodule left lobe of the thyroid stable compare to US done last year - Potential parathyroid adenoma Patient Instructions - Complete the laboratory tests, including the thyroid panel, as soon as possible. - Schedule a telehealth consultation if there are questions or concerns after reviewing lab results.
== END 2025-03-11 10:01 | disposition home or self-care (01) ==
LOC: HO.HMCC 08:23
PROVIDERS: PCP Internal Medicine; Visit Provider Internal Medicine
DX: E04.1 Nontoxic single thyroid nodule (principal)

== ENCOUNTER 2025-03-12 07:52 | Outpatient (REF) | payer BC, SELFPAY ==
--- OUTSIDE RECORDS SUMMARY | 2025-03-12 07:56 | XMS_ITS | Encounter Summary ---
Author Organization [facility] Address [address] [place] [address] Care Team Providers Care Service Delivery Director Name Role Phone Lizeth South Primary Care Provider [phone] Encounter Details Date Type Department Care Team (Late st Contact Info) Description 10/20/2024 Orders Only [address], 5th [place] [address] Micaela Chin MD [address] [place] [address] Social History Tobacco Use Types Packs/Day Years [...] on filedocumented in this encounter Care Teams Service Delivery Director Relationship Specialty Start Date End Date Lizeth South [address] [place] [address] PCP - General Internal Medicine 03/20/23 documented as of this encounter
--- OUTSIDE RECORDS SUMMARY | 2025-03-12 07:56 | XMS_ITS | Patient Health Record ---
Author Organization [facility] Address [address] [place] [address] Care Team Providers Care Compound Specialist Name Role Phone Brannon SOFIA, Asma Primary [...] Problem Status W/U Status Risk Notes Problem [id number] Colon cancer screening (Z12.11) Active confirmed Problem 46108209 Irritable bowel syndrome without diarrhea (K58.9) Active confirmed Problem 763534028 Gastroesophageal reflux disease without esophagitis (K21.9) Active confirmed Plan Of Treatment Future Test Test Name Order Date UPPER GI ENDOSCOPY 08/06/2014 COLONOSCOPY 08/06/2014 COLONOSCOPY 11/17/2015 Insurance Providers Payer Name Payer Address Payer Phone Subscriber Number Group Number Insured Name Patient Relationship to Insured Coverage Start Date Coverage End Date [facility] [address] [place] [phone] [id number] AURA SURESH Self - patient is the insured Medical (General) History Medical History History ICD Code colonoscopy 1-19-2011 colon polyp history of irritable bowel syndrome impaired glucose tolerance asthma Denies [place],DM,CVA,Lung disease,renal dise ase Surgical History Surgery Date(Month/Year) Caesarean section x 4 sinus surgery Grafting in [facility]
[2025-03-12 10:22] LABS: MANUAL DIFF FLAG NO
[2025-03-12 10:39] LABS: Hematocrit 43.1 % (37.0-47.0); Hemoglobin 14.4 g/dl (12.0-16.0); Imm Gran Abs Auto 0.03 X10*3/uL (0.00-0.03); Imm Gran Pct Auto 0.5 % (0.0-0.4); Lymphocytes Absolute Auto 1.7 X10*3/uL (1.2-4.9); Mean Corpuscular HGB Conc 33.4 g/dl (31.0-35.0); Mean Corpuscular Hemoglobin 29.3 pg (27.0-33.0); Mean Corpuscular Volume 87.8 fL (80.0-98.0); NRBC Abs Auto 0.000 X10*3/uL (0.0-0.012); NRBC Pct Auto 0.0 /100WBC (0.0-0.2); Platelet Count 346 X10*3/uL (160-400); Red Blood Count 4.91 X10*6/uL (4.20-5.50); White Blood Count 5.9 X10*3/uL (4.8-10.8)
[2025-03-12 11:00] LABS: Alanine Aminotransferase 25 U/L (0-31); Albumin Level 4.5 g/dL (3.5-5.0); Alkaline Phosphatase 54 U/L (39-117); Anion Gap 12 (12-20); Aspartate Amino Transferase 21 U/L (5-31); Blood Urea Nitrogen 17 mg/dL (9-16); Calcium 9.4 mg/dL (8.4-10.2); Carbon Dioxide 28 mmol/L (22-29); Chloride 105 mmol/L (96-108); Cholesterol 178 mg/dL (<200); Estimated Glomerular Filt Rate > 60; HDL Cholesterol 59 mg/dL (>40); Potassium 4.1 mmol/L (3.3-5.1); Sodium 141 mmol/L (135-145); Total Protein 7.0 g/dL (6.5-8.0); Triglycerides 53 mg/dL (<150)
== END 2025-03-12 07:53 | disposition home or self-care (01) ==
LOC: HO.HMGCLDS 07:52
PROVIDERS: PCP Internal Medicine; Visit Provider Internal Medicine
DX: R73.03 Prediabetes (principal); E55.9 Vitamin D deficiency, unspecified; K21.9 Gastro-esophageal reflux disease without esophagitis; K58.9 Irritable bowel syndrome, unspecified; E04.1 Nontoxic single thyroid nodule; I10 Essential (primary) hypertension
CPT/HCPCS: 36415; 80053; 80061; 84443; 85025

== ENCOUNTER 2025-07-27 12:32 | Outpatient (AMB) | payer BC, SELFPAY ==
--- NOTE | 2025-07-27 12:35 | MHC.PC.OV ---
Vital Signs 07/27/25 12:36 Height 5 ft 5 in Weight 169 lb BMI 28.1 BP 136/80 Blood Pressure Location Lt brachial Position Sitting Pulse 87 Pulse Source Pulse Oximeter Pulse Oximetry (%) 98 Intake Visit Reasons: PE Allergies atenolol Allergy (Severe, Verified 07/27/25 12:36) Swelling amlodipine Adverse Reaction (Intermediate, Verified 07/27/25 12:36) ankle swollen Medication List - Last Reconciled 07/27/25 by Lizeth South MD albuterol sulfate 90 mcg/actuation (Ventolin HFA) 1 inh inhalation Q4-6H PRN cholecalciferol (vitamin D3) (Vitamin D3) 25 mcg PO DAILY losartan 50 mg PO ONCE 90 days pantoprazole 20 mg PO DAILY Tobacco use date assessed: 02/02/25 Fall risk assessment: No Falls in past year Last assessed Fall Risk: 07/27/25 Dental Screening Dental Screen Date: 02/02/25 HPI HPI Comments History of Present Illness Details History of Present Illness The patient is a 65 year old individual presenting for a physical exam. Hypertension: - The patient's blood pressure was 136/80 mmHg at the visit. - In January, the blood pressure was 146/67 mmHg. - The patient takes losartan 50 mg for management. - The patient periodically monitors blood pressure at home, with readings around 128/78 mmHg to 130/72 mmHg. Gastroesophageal Reflux Disease (GERD): - The patient takes pantoprazole 20 mg for GERD, and symptoms are currently well-controlled. - A prior endoscopy several years ago revealed two small erosions in the stomach. Prediabetes: - Labs from March showed a fasting blood sugar of 128 mg/dL, which is in the prediabetic range. - The patient's hemoglobin A1c in June of the previous year was 5.4%. Thyroid Nodules: - A thyroid ultrasound in March showed two small nodules. - The findings included a stable subcentimeter nodule at the lower pole of the left thyroid lobe and a 6 mm nodule inferior to the lower lobe of the left thyroid. Intermittent Abdominal Pain: - The patient reports experiencing intermittent dull pain on LLQ of the abdomen. - The pain can last for a month or two before resolving and is not present currently. - established with Gastro Toenail Issue: - The patient saw a electrician apprentice powerhouse for a toenail issue, described as ingrown. - The electrician apprentice powerhouse suggested an [id number] treatment and using Vicks, which has resulted in some improvement in the nail's color. - Neither the electrician apprentice powerhouse nor a document control specialist diagnosed the issue as a fungus, and no culture has been performed to confirm a diagnosis. Colon Cancer Screening: - The patient's last colonoscopy was in March [address] Forbes. - The patient is on a 5-year follow-up schedule due to a family history of cancerous polyps in the patient's mother. - The next colonoscopy is due in 2025. - The last colonoscopy report noted internal hemorrhoids and no diverticulosis. Medical History: - Hypertension - Gastroesophageal reflux disease (GERD) with a history of stomach erosions - Prediabetes - Thyroid nodules sub cententimeter - Internal hemorrhoids - RSV infection in August of last year - Thoracic back pain off and on Social History: - The patient has a fourth grandchild expected in December. Family History: - The patient's mother, aunt, and two of the mother's sisters had ovarian and breast cancer. - The patient's mother had cancerous polyps. Health Maintenance - Mammogram: Completed in June of last year and was negative. - Genetic testing for cancer risk: The patient has an appointment in December due to a strong family history of breast and ovarian cancer. - Colonoscopy: Last performed in March 2021; next one is due in 2025. - Pap smear: Last performed in August of the previous year. - Immunizations: - Flu vaccine: Received. - Tdap: Up to date as of September 2022. - RSV vaccine: Received in August of last year. - Shingrix: Plans to receive. - COVID-19 vaccine: Not yet received. - Pneumonia 20 vaccine: Due and will be administered during the visit. [place] of Care - Gastroenterology: Established with [facility] and saw Dr. Forbes in March 2021. - The patient plans to switch to Dr. Constantino at [facility] for the next colonoscopy. - RIB CUTTER: Sees Dr. Pandey in [place], with the last visit in August of a year ago. - Chlorine Cell Tender: Seen for a toenail concern. - Electronic Data Processing Auditor: Seen for a toenail concern. Medications - Losartan 50 mg for hypertension - Pantoprazole 20 mg for GERD [facility] Medical History (Updated 07/27/25 @ 13:03 by Lizeth South MD) Encounter for general adult medical examination with abnormal findings Vaginal itching Cough Wheezing Bronchitis Chronic superficial gastritis without bleeding Acute sinusitis Dysuria Family history of ankylosing spondylitis Chest pain Abnormal EKG Upper respiratory tract infection Esophageal spasm Acute bronchitis Liver cyst Family history of rheumatoid arthritis Skin cancer screening COVID-19 vaccine series completed Osteoarthritis Hiatal hernia IBS (irritable bowel syndrome) GERD (gastroesophageal reflux disease) Surgical History Hx of oral surgery History of nasal septoplasty Hx of section Hx of colonoscopy H/O esophagogastroduodenoscopy Family History Mother Breast cancer Colon polyps High blood pressure Hypothyroid Father CVD (cardiovascular disease) Brother H/O heart artery stent Cancer Substance use disorder Social History Housing: House Are you a primary emergency care attendant to a significant other at home: No Do you presently have visiting nurse or other home services: No Alcohol intake: current Alcohol intake frequency: a few times a month Alcohol type: wine Patient Tobacco Use Status: Former Tobacco user Tobacco use type: Cigarette Years Smoked: in high school e-Cigarette/Vaping Use: Never Used Second Hand Smoke Exposure: No service: No Current occupational status: employed Cognitive needs: No Hearing needs: No Vision needs: Yes Questionnaire Thrive Questionnaire Date Thrive assessed: 02/02/25 I am a: Patient What is your living situation today?: I have a steady place to live Within the past 12 months, did the food you bought not last and you didn't have the money to get more?: Never true Within the past 12 months, did you worry whether your food would run out before you got money to buy more?: Never true Do you have trouble paying for medicines?: No Do you have trouble getting transportation to medical appointments?: No Do you have trouble paying your heating and electricity bill?: No Do you have trouble taking care of your child, family member or friend?: No Do you have trouble with day-to-day activities such as bathing, preparing meals, shopping, managing finances, etc.?: No Are you currently unemployed and looking for a job?: Yes Are you interested in more education?: No Please select the resources that you would like help with: None Currently or been in a relationship where the following occur: No concerns reported THRIVE Score: 0 HEAVENLY-7 AMB Questionnaire HEAVENLY-7 Date HEAVENLY - 7 assessed: 02/02/25 Source: Developed by Drs. Jair Monique, Angela Velasco, Daniel Whiteside and colleagues, with an educational lane from [employer]. Review of Systems Narrative Review of Systems - General: No fever no chills - Neurological: No headaches no dizziness - Ear nose throat: No sore throat no hearing difficulty no ear pain - Cardiovascular: No syncope, no chest pain, no palpitations - Gastrointestinal: No nausea vomiting or diarrhea - Endocrine: No polyuria polydipsia no heat intolerance - Genitourinary: No dysuria - Skin: No new complaints Physical exam (Primary Care) Vital Signs: Last Vital Signs Pulse 87 07/27/25 12:36 BP 136/80 07/27/25 12:36 Pulse Ox 98 07/27/25 12:36 BMI result Body Mass Index 28.1 Tobacco/Smoking Status: Tobacco use Status Tobacco use date assessed 02/02/25 07/27/25 12:37 Patient Tobacco Use Status Former Tobacco user 07/27/25 12:37 Tobacco use type Cigarette 07/27/25 12:37 e-Cigarette/Vaping Use Never Used 07/27/25 12:37 Thrive Assessment: Date of Thrive Assessment Date Thrive assessed 02/02/25 07/27/25 12:37 Currently or been in a relationship where the following occur: No concerns reported Narrative Diagnostic results - Labs (March): - CBC: Within normal limits - Electrolytes: Within normal limits - Kidney function: Intact - Fasting glucose: 128 mg/dL - LDL: 109 mg/dL - Liver enzymes: Stable - TSH: Normal - Labs (June): - Hemoglobin A1c: 5.4% - Imaging: - Thyroid Ultrasound (March): Stable subcentimeter nodule at the lower pole of the left thyroid lobe and a 6 mm nodule inferior to the lower lobe of the left thyroid. - Mammogram (June): Negative. - Procedures: - Colonoscopy (March 2021): Report showed internal hemorrhoids and no diverticulosis. Physical Exam General: Cooperative, healthy appearing, comfortable, no acute distress Orientation: Patient oriented x3 Limitations: none Head: Normal to inspection Ears: Within normal limit visually Nose: Normal external nose present Face and sinus: Normal facial exam Eyes: Appearance normal, extraocular movement intact pupils reactive Neck: Normal visual inspection and supple Respiratory: Normal respiratory effort and able to speak in complete sentences. Clear to auscultation, no stridor Cardiovascular: S1 and S2 RRR Breast exam by Obgyn GI: Normal to inspection. Soft to palpation and nontender Skin: Turgor normal, no acute findings Neuro: Patient oriented x3, motor sensory intact, balance intact Extremities: no edema . Coding Level of Care Code Est Pt Level 3 (82165) Est Pt Prev Care >65y(72259) Diagnoses Encounter for general adult medical examination with abnormal findings Z00.01 Hypertension, essential I10 Vitamin D deficiency E55.9 Gastroesophageal reflux disease without esophagitis K21.9 Esophagitis presence: without esophagitis Pre-diabetes R73.03 Internal hemorrhoid K64.8 Assessment & Plan Assessment & Plan (1) Encounter for general adult medical examination with abnormal findings: Code(s): Z00.01 - Encounter for general adult medical examination with abnormal findings Category: Medical (2) Hypertension, essential: Code(s): I10 - Essential (primary) hypertension Category: Medical (3) Vitamin D deficiency: Code(s): E55.9 - Vitamin D deficiency, unspecified Category: Medical (4) GERD (gastroesophageal reflux disease): Code(s): K21.9 - Gastro-esophageal reflux disease without esophagitis Category: Medical Qualifiers: Esophagitis presence: without esophagitis Qualified Code(s): K21.9 - Gastro-esophageal reflux disease without esophagitis (5) Pre-diabetes: Code(s): R73.03 - Prediabetes Category: Medical (6) Internal hemorrhoid: Code(s): K64.8 - Other hemorrhoids Category: Medical Plan Patient Instructions - You will receive the Pneumonia 20 vaccine today in the office. - Please go for a non-fasting blood test today after your visit to check your kidney function and hemoglobin A1c. - Schedule a follow-up appointment in six months for prediabetes monitoring. - You will need a fasting blood test done before your next six-month appointment. An order for this will be placed. - Your next full physical exam is due in one year. - You can get your shingles and COVID-19 vaccines at a pharmacy. - You can remind the office next year to get a referral for your next colonoscopy. Orders: Orders Comprehensive Met. Panel Today E55.9 - Vitamin D deficiency, unspecified, I10 - Essential (primary) hypertension, K21.9 - Gastro-esophageal reflux disease without esophagitis, M45.7 - Ankylosing spondylitis of lumbosacral region, R73.03 - Prediabetes Comprehensive Weed. Panel Fast 6 Months E55.9 - Vitamin D deficiency, unspecified, I10 - Essential (primary) hypertension, K21.9 - Gastro-esophageal reflux disease without esophagitis, K64.8 - Other hemorrhoids, R73.03 - Prediabetes, Z00.01 - Encounter for general adult medical examination with abnormal findings Hemoglobin A1c Today E55.9 - Vitamin D deficiency, unspecified, I10 - Essential (primary) hypertension, K21.9 - Gastro-esophageal reflux disease without esophagitis, M45.7 - Ankylosing spondylitis of lumbosacral region, R73.03 - Prediabetes Complete Blood Count Auto Diff 6 Months E55.9 - Vitamin D deficiency, unspecified, I10 - Essential (primary) hypertension, K21.9 - Gastro-esophageal reflux disease without esophagitis, K64.8 - Other hemorrhoids, R73.03 - Prediabetes, Z00.01 - Encounter for general adult medical examination with abnormal findings Hemoglobin A1c 6 Months E55.9 - Vitamin D deficiency, unspecified, I10 - Essential (primary) hypertension, K21.9 - Gastro-esophageal reflux disease without esophagitis, K64.8 - Other hemorrhoids, R73.03 - Prediabetes, Z00.01 - Encounter for general adult medical examination with abnormal findings Lipid Panel 6 Months E55.9 - Vitamin D deficiency, unspecified, I10 - Essential (primary) hypertension, K21.9 - Gastro-esophageal reflux disease without esophagitis, K64.8 - Other hemorrhoids, R73.03 - Prediabetes, Z00.01 - Encounter for general adult medical examination with abnormal findings Vitamin D 25-OH (D2 and D3) 6 Months E55.9 - Vitamin D deficiency, unspecified, I10 - Essential (primary) hypertension, K21.9 - Gastro-esophageal reflux disease without esophagitis, K64.8 - Other hemorrhoids, R73.03 - Prediabetes, Z00.01 - Encounter for general adult medical examination with abnormal findings TSH reflex Free T4 6 Months E55.9 - Vitamin D deficiency, unspecified, I10 - Essential (primary) hypertension, K21.9 - Gastro-esophageal reflux disease without esophagitis, K64.8 - Other hemorrhoids, R73.03 - Prediabetes, Z00.01 - Encounter for general adult medical examination with abnormal findings
[2025-07-27 12:36] VITALS: BP 136/80; PULSE 87; O2SAT 98; BMI 28.1
--- OUTSIDE RECORDS SUMMARY | 2025-07-27 16:06 | XMS_ITS | Encounter Summary ---
Author Organization [facility] Address [address] [place] [address] Care Team Providers Care Palletiser Operator Name Role Phone Lizeth South Primary Care Provider [phone] Encounter Details Date Type Department Care Team (Late st Contact Info) Description 10/02/2024 Orders Only [address] 5th [place] [address] Gretel So MD [address] [place] [id number] Social History Tobacco Use Types Packs/Day Years Used Date Smoking Tobacco: Never Passive Smoke Exposure: Past Smokeless Tobacco: Never Alcohol Use Standard Drinks/Week Comments Yes 0 (1 standard drink = 0.6 oz pur e alcohol) Comments Unknown Sex and Gender Information Value Date Recorded Sex Assigned at Female 06/23/2023 8:35 AM EDT Legal Sex Female 11:59 PM EDT Gender Identity Female 06/23/2023 8:35 AM EDT Sexual Orientation Straight 06/23/2023 8: 35 AM EDT documented as of this encounter Plan of Treatment Upcoming Encounters Date Type Department Care Team (Late st Contact Info) Description 12/13/2025 1:00 PM EDT Telehealth [facility] 5th Floor [address] [place] [address] 06/24/2026 3:45 PM EDT Appointment [address] [place] [address] documented as of this encounter Visit Diagnoses Not on filedocumented in this encounter Care Teams Palletiser Operator Relationship Specialty Start Date End Date Lizeth South [address] [place] [address] PCP - General Internal Medicine 03/20/23 documented as of this encounter
--- OUTSIDE RECORDS SUMMARY | 2025-07-27 16:06 | XMS_ITS | Encounter Summary ---
Author Organization [facility] Address [address] [place] [address] Care Team Providers Care Eligibility Consultant Name Role Phone Lizeth South Primary Care Provider [phone] Encounter Details Date Type Department Care Team (Late st Contact Info) Description 10/05/2024 Lab Requisition [facility] [address] [place] [id number] Gretel So MD [address] [place] [id number] Unspecified lump in the right breast, upper outer quadrant Social History Tobacco Use Types Packs/Day Years [...] Info) Description 12/13/2025 1:00 PM EDT Telehealth [facility] 5th Floor [address] [place] [address] 06/24/2026 3:45 PM EDT Appointment [facility] [address] [facility], [place] [address] [place] [address] documented as of this encounter Procedures * Due to [place] [employer] law, this organization might not be sharing negative HIV tests. Procedure Name Priority Date/Time Associated Diagnosis Comments TISSUE EXAM Routine 10/05/2024 12:47 PM EST Unspecified lump in the right breast, upper outer quadrant documented in this encounter Results * Due to [place] [employer] law, this organization might not be sharing negative HIV tests. 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 - Background breast tissue with dense stroma. [facility] 10/09/2024 8:13 AM EST [facility] at 0813 EST Clinical History mass in the upper outer breast, right side MRI guided [facility] 10/09/2024 8:13 AM EST [facility] Gross Description 1. Breast, Right, MRI guided right breast biopsy The specimen is received in formalin labeled with the patient's name, medical record number, date of , and breast, right MRI guided right breast biopsy . It consists of multiple riojas-yellow to riojas-white, fibrofatty tissue cores averaging 1.5 cm in length and 0.5 cm in diameter. The specimen is entirely submitted in cassette [id number]. Time out of body: 12:47 PM, 10/05/2024 Time in formalin: 12:50 PM, 10/05/2024 Cold ischemic time: 3 minutes [facility] 10/09/2024 8:13 AM EST [facility] Gross Description User Grossing complete by Marian Colby on 10/05/2024 4:45 PM [facility] 10/09/2024 8:13 AM EST [facility] Best Block for Ancillary Studies N/A [facility] 10/09/2024 8:13 AM EST [facility] Embedded Images [facility] 10/09/2024 8:13 AM EST [facility] Resulting Agency Case was signed out at [facility], Department of Pathology, [facility] 3 CLIA [id number] [facility] MANUAL 10/09/2024 8:13 AM EST [facility] Report Header Surgical Pathology Report Case: [id number] Authorizing Provider: Gretel So MD Collected: 10/05/2024 1247 Ordering Location: [facility] Received: 10/05/2024 1637 [facility] Pathologist: Alfredo Banda MD Specimen: Breast, Right, MRI guided right breast biopsy 10/09/2024 8:13 AM EST [facility] Tissue Right breast structure / Unknown 10/05/2024 12:47 PM EST 10/05/2024 4:37 PM EST us Gretel So MD LAB PATHOLOGY/CYTOLOGY ORD ERABLES Final Result [facility] [address] [place] [address], documented in this encounter Visit Diagnoses Diagnosis Unspecified lump in the right breast, upper outer quadrant documented in this encounter Care Teams Eligibility Consultant Relationship Specialty Start Date End Date Lizeth South [address] [place] [address] PCP - General Internal Medicine 03/20/23 documented as of this encounter
--- OUTSIDE RECORDS SUMMARY | 2025-07-27 16:06 | XMS_ITS | Clinical Summary ---
Author Organization [facility] Address [address] [place] [address] Care Team Providers Care Cooker Soda Name Role Phone Lizeth South Primary Care Provider [phone] Allergies No known active allergies Medications pantoprazole DR (PROTONIX) 20 mg tablet Take 20 mg by mouth once a day. Active cholecalciferol (VITAMIN D3) 2,000 unit capsule Take 1,000 Units by mouth daily. Active losartan (COZAAR) 25 mg tablet SMARTSI Tablet(s) By Mouth Twice Daily 4 Active Breo Ellipta 200-25 mcg/dose blister with device INHALE 1 PUFF DAILY FOR 30 DAYS RINSE YOUR MOUTH AFTER USE 4 Active clindamycin-ainsley zoyl peroxide (BENZACLIN) gel SMARTSIG:spari ngly Topical Every Night 4 Active MAGNESIUM ASCORBATE, BULK, MISC 400 mg daily. Activ e albuterol (PROAIR HFA,VENTOLIN HFA) 90 mcg inhaler Inhale 1-2 puffs by mouth every 6 hours as needed for wheezing or shortness of breath. Use with spacer. Active Active Problems Problem Noted Date Diagnosed Date Family history of breast cancer 05/28/2025 Inconclusive mammogram due to dense breasts 05/04 Abnormal magnetic resonance imaging of left marie st 10/17/2024 Fibroadenoma of breast, right 10/17/2024 Encounters Date Type Department Care Team Description 05/28/2025 11:00 AM EDT Telehealth [address] [place] [address] Needle Loom Weaver: Amy Smith MD Family history of breast cancer (Primary Dx); Abnormal magnetic resonance imaging of left breast; Fibroadenoma of breast, right; Inconclusive mammogram due to dense breasts from Last 3 Months Family History Medical History Relation Name Comments Lung cancer Brother No Known Problems Child No Known Problems Cousin No Known Problems Daughter No Known Problems Father No Known Problems Grandchild No Known Problems Maternal Grandfather No Known Problems Maternal Grandmother Breast cancer Mother Rosalind Breast cancer Mother's Sister 1 Sissy Ovarian cancer Mother's Sister 2 Evangelina No Known Problems Other No Known Problems Paternal Grandfather No Known Problems Paternal Grandmother No Known Problems Sister No Known Problems Son BRCA 1/2 Neg Hx Colon cancer Neg Hx Endometrial cancer Neg Hx Relation Name Status Comments Brother Child Cousin Daughter Father Grandchild Maternal Grandfather Maternal Grandmother Mother Rosalind diag 65; mastec sb with tamoxifen Mother's Sister 1 Sissy diagnosed in 70s Mother's Sister 2 Evangelina Other Paternal Grandfather Paternal Grandmother Sister Son Social History Tobacco Use Types Packs/Day Years [...] Orientation Straight 06/23/2023 8: 35 AM EDT Last Filed Vital Signs Vital Sign Reading Time Taken Comments Blood Pressure 159/88 10/14/2024 3:34 PM EST Pulse 81 10/14/2024 3:34 PM EST Temperature 36.6 C (97.9 F) 10/14/2024 3:34 PM EST Respiratory Rate 16 10/14/2024 3:34 PM EST Oxygen Saturation 99% 10/14/2024 3:34 PM EST Inhaled Oxygen Concentration - - Weight 76.5 kg (168 lb 9.6 oz) 10/14/2024 3:34 P M EST Height 161 cm (5' 3.39 ) 10/14/2024 3:34 PM EST Body Mass Index 29.5 10/14/2024 3:34 PM EST Plan of Treatment Upcoming Encounters Date Type Department Care Team (Dany st Contact Info) Description 12/13/2025 1:00 PM EDT Telehealth [facility] 5th Floor [address] [place] [address] 06/24/2026 3:45 PM EDT Appointment [facility] [address] [place] [address], [place] [address] [address] Health Maintenance Due Date Last Done Comments Cervical Cancer Screening 1960 Cologuard 1960 Colon Cancer Screening 1960 Colonoscopy 1960 FOBT / Fit Test 1960 HIV Screening 1960 HPV and Pap Smear 1960 Pap Smear [address] Lung Cancer Screening (Baseline) 02/09/2010 Osteoporosis Screening 02/09/2010 Pneumococcal Vaccine: 50+ Ye ars (2 of 2 - PCV) 02/09/2010 09/02/2004 Zoster Vaccines (1 of 2) 02/09/2010 Alcohol/Substance Use Screening 09/02/2024 Depression Screening and Follow-Up 09/02/2024 Health Care Proxy Review 09/02/2024 Social Drivers of Health Bisi ual Screening 09/02/2024 Influenza Vaccine (#1) 2025 , 06/23/2023, 06/14/2022, Additional history exists COVID-19 Vaccine (5 - 2024-2 6 season) 2025 09/12/2022, 07/19/2021, 10/18/2020, Additional history exists Fall Risk Screening 05/28/2026 05/28/2025 Diabetes Screening 06/24/2026 06/24/2023 Mammogram 06/23/2027 06/23/2025, 07/2 05/2025, 10/05/2024, Additional history exists DTaP,Tdap,and Td Vaccines (2 - Td or Tdap) 10/02/2032 10/02/2022 Hepatitis B Vaccines Completed 04/04/2018, 01/03/2018, 12/06/2017 Hepatitis C Screening Completed 06/24/2023 RSV Vaccine (60+ years old a nd patients) Completed 08/21/2024 Procedures * Due to [place] state law, this organization might not be sharing negative HIV tests. Procedure Name Priority Date/Time Associated Diagnosis Comments PAUL BILATERAL SCREENING DIGITAL MAMMOGRAM WITH JERRY Routine 06/23/2025 9:00 AM EDT Encounter for screening mammogram for malignant neoplasm of breast MRI BREAST BILATERAL DIAGNOSTIC W WO CONTRAST STAT 05/21/2025 4:30 PM EDT Abnormal magnetic resonance imaging of left breast COMPREHENSIVE METABOLIC PANEL Routine 06/24/2023 10:04 AM EDT Thoracic spine pain Pain of toe of left foot HLA B27 (HLA B27 positive) HEPATITIS C ANTIBODY W/REFLEX TO HCV RNA, QUANTITATIVE PCR Routine 06/24/2023 10:04 AM EDT Thoracic spine pain Pain of toe of left foot HLA B27 (HLA B27 positive) from Last 3 Months or Most Recently Relevant to Health Maintenance Results * Due to [place] state law, this organization might not be sharing negative HIV tests. * PAUL Bilateral Screening Digital Mammogram With Jerry (06/23/2025 9:00 AM EDT) Anatomical Region Laterality Modality Breast Bilateral Mammography Narrative 06/27/2025 3:24 PM EDT Helen Sun Exam Date: 06/23/[address] [place], [place] [address] EXAMINATION PAUL Bilateral Screening Digital Mammogram With Jerry. INDICATION Helen Sun is a 65 y.o. female and is seen for: screening. CC and MLO views were obtained. R2 CAD was used as a reading aid in the interpretation of this study. COMPARISON Relevant prior exams in PACS. Bilateral Breast Findings: The breasts are heterogeneously dense, which may obscure small masses. No significant masses, calcifications or other abnormalities are seen. Biopsy clip is noted in the right breast. IMPRESSION No evidence of malignancy. BI-RADS ATLAS category (overall): 2 - Benign MANAGEMENT Routine Screening Mammogram in 1 Year is recommended for bilateral. The patient was entered into a reminder system with a subsequent mammography target date. The patient s lifetime risk for breast cancer was calculated as: Sowmyaer-Cuzick: 21.92%. For high-risk women (life-time risk greater than 20%), regardless of breast density, supplemental screening with annual breast MRI is recommended in addition to annual mammography, ideally staggered at 6-month intervals. Women with dense breast tissue and lifetime risk less than 20% may also benefit from supplemental screening with breast MRI ([facility] order M RI BREAST BILATERAL SCREENING W WO CONTRAST ) or automated breast ultrasound ([facility] order A BUS ) depending on risk factors. https://acsearch.acr.org/docs/6943196/Narrative/ TC score is not calculated for women with personal history of breast cancer or if age >80 years. If this radiology report contains a blank impression section, it is an incomplete radiology report. Please contact the interpreting radiologist or applicable radiology division as soon as possible to obtain the completed interpretation. Anju Li MD Lizeth South IM BI PROCEDURES Final Result * MRI Breast Bilateral Diagnostic W Wo Contrast (05/21/2025 4:30 PM EDT) Anatomical Region Laterality Modality Breast Bilateral Magnetic Resonan ce 05/21/2025 3:50 PM EDT Narrative 05/24/2025 9:20 AM EDT Helen Sun Exam Date: 05/21/25 [facility] [place] [id number] MRI Breast Bilateral Diagnostic W Wo Contrast TECHNIQUE Fat saturation T2 axial. Fat saturation T1 3D volume gradient echo axial thin sections before and five times after Gadolinium administration. Backlift 3D workstation image motion registration, followed by subtraction. Multiplanar reconstruction and 2D slab MIP reconstruction. 3D temporal MIP projections. Images were obtained on a [employer] 1.5T unit. The patient denied any history of renal impairment. INDICATIONS 6-month follow-up of probably benign findings in the left breast COMPARISON Relative prior breast images including prior breast MRI FINDINGS RIGHT BREAST: The parenchyma is composed of heterogenous fibroglandular tissue. There is mild to minimal background enhancement. There is no suspicious mass or non mass enhancement. There is a biopsy clip in the upper outer breast mid depth at the site of recently biopsied fibroadenoma. There is no unexplained architectural distortion. There is no axillary or internal mammary adenopathy. LEFT BREAST: The parenchyma is composed of heterogenous fibroglandular tissue. There is mild to minimal background enhancement. Deviously seen enhancing foci in the upper central posterior breast is less conspicuous on current study in keeping with background parenchymal enhancement. There is no suspicious mass or non mass enhancement. There is no unexplained architectural distortion. There is no axillary or internal mammary adenopathy. IMPRESSION No specific MRI evidence of malignancy. FINAL ASSESSMENT BI-RADS ATLAS category (overall): 2 - Benign If this radiology report contains a blank impression section, it is an incomplete radiology report. Please contact the interpreting radiologist or applicable radiology division as soon as possible to obtain the completed interpretation. Gretel So MD Resulting Agency Comment [id number] us Amy Gonzalez MD IMG MRI PROCEDURES Final Re sult * Hepatitis C Antibody w/Reflex to HCV RNA, Quantitative PCR (06/24/2023 10:04 AM EDT) Hepatitis C Antibody NON-REACT ROGELIO NON-REACT ROGELIO 06/24/2023 9:19 PM EDT [employer] [facility] Comment: HCV antibody was non-reactive. There is no laboratory evidence of HCV infection. In most cases, no further action is required. However, if recent HCV exposure is suspected, a test for HCV RNA (test code 56851) is suggested. For additional information please refer to http://education.Techlicious.Anzhi.com/faq/DUM97h0 (This link is being provided for informational/ educational purposes only.) Blood Structure of peripheral vein / Unknown Venipuncture / Unknown 06/24/2023 10:04 AM EDT 06/24/2023 10:22 AM EDT [facility] 06/24/2023 9:19 PM EDT [facility] Received Date: us Christiano Mane MD LAB BLOOD ORDERABLES Final Res ult [facility] [address] [address], [place] [address], [place] [phone] [address] [facility] [address] [facility] 3[address], [place] [address], [place] [phone] * (ABNORMAL) Comprehensive metabolic panel (06/24/2023 10:04 AM EDT) NA 140 135 - 145 mmol/L 06/24/2023 11:00 AM EDT [facility] K 3.6 3.5 - 5.3 mmol/L 06/24/2023 11:00 AM EDT [facility] Cl 103 97 - 110 mmol/L 06/24/2023 11:00 AM EDT [facility] CO2 31 24 - 32 mmol/L 06/24/2023 11:00 AM EDT [facility] Anion Gap 6 5 - 15 06/24/2023 11:00 AM EDT [facility] Glucose 116(H) 70 - 99 mg/dL 06/24/2023 11:00 AM EDT [facility] Creatinine 0.66 0.50 - 1.20 mg/dL 06/24/2023 11:00 AM EDT [facility] Calcium 9.5 8.7 - 10.7 mg/dL 06/24/2023 11:00 AM EDT [facility] Total Protein 7.6 6.0 - 8.0 g/dL 06/24/2023 11:00 AM EDT [facility] Albumin 4.8 3.5 - 4.8 g/dL 06/24/2023 11:00 AM T [facility] Bilirubin, Total 0.7 0.3 - 1.2 mg/dL 06/24/2023 11:00 AM EDT [facility] Alkaline Phosphatase 51 30 - 115 U/L 06/24/2023 11:00 AM EDT [facility] AST 18 10 - 40 U/L 06/24/2023 11:00 AM EDT [facility] ALT 26 10 - 40 U/L 06/24/2023 11:00 AM EDT [facility] BUN 15 7 - 23 mg/dL 06/24/2023 11:00 AM EDT [facility] eGFR >90 >=60 mL/min/1. 73m2 06/24/2023 11:00 AM EDT [facility] Comment:The estimated glomer ular filtration rate (eGFR) is calculated using a new formula developed by the NKF-ASN task force to eliminate race-based correction factors. The new formula uses serum/plasma creatinine, age, and gender to determine eGFR. A value below 60mls/min might indicate kidney disease and will be flagged. For additional information, see Lake et al, Am J Kidney Dis. 2021;79(2):268- 288, A Unifying Approach for GFR estimation: Recommendations of the NKF-ASN Task Force on Reassessing the Inclusion of Race in Diagnosing Kidney Disease . Blood Structure of peripheral vein / Unknown Venipuncture / Unknown 06/24/2023 10:04 AM EDT 06/24/2023 10:22 AM EDT us Christiano Mane MD LAB BLOOD ORDERABLES Final Res ult [facility] [address] [place] [address], [place] from Last 3 Months or Most Recently Relevant to Health Maintenance Insurance [place]BS [place] HMO/POS Care Teams Cooker Soda Relationship Specialty Start Date End Date Lizeth South [address] [place] [address] PCP - General Internal Medicine 03/20/23
--- OUTSIDE RECORDS SUMMARY | 2025-07-27 16:06 | XMS_ITS | Patient Health Record ---
Author Organization [facility] Address [address] [place] [address] Care Team Providers Care Food Bagging Machine Operator Name Role Phone Brannon SOFIA, Asma Primary Care Provider Ward Owens Jr [phone] Reason For Referral No Information Medications Medication SIG (Take, Route, Frequency, Duration) Notes Start Date End Date Status Albuterol Sulfate HFA 108 (90 Base) MCG/ACT Aerosol Solution 2 puffs as needed Inhalation every 4 hrs Active MoviPrep 100 GM Solution Reconstituted as directed before colonoscopy Orally; Duration: 1 dose 11/17/2015 Active Vitamin D (Ergocalciferol) 500 Capsule 1 capsule Orally ONCE A DAY Active Pantoprazole Sodium 40 MG Tablet Delayed Release 1 tablet Orally Once a day; Duration: 30 Active Social History Social History Additional Details Category Social Info Options Details Miscellaneous: Marital status: 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 [employer]az[employer] Problems Problem Type SNOMED Code ICD Code Onset Dates Problem Status W/U Status Risk Notes Problem Colon cancer screening (970707351) Colon cancer screening (Z12.11) Active confirmed Problem Irritable bowel syndrome (13782727) Irritable bowel syndrome without diarrhea (K58.9) Active confirmed Problem Gastroesophageal reflux disease without esophagitis (570029284) Gastroesophageal reflux disease without esophagitis (K21.9) Active confirmed Plan Of Treatment Future Test Test Name Order Date UPPER GI ENDOSCOPY 08/06/2014 COLONOSCOPY 08/06/2014 COLONOSCOPY 11/17/2015 Insurance Providers Payer Name Payer Address Payer Phone Subscriber Number Group Number Insured Name Patient Relationship to Insured Coverage Start Date Coverage End Date [facility] [address] [facility] [place] [phone] [id number] AURA SURESH Self - patient is the insured Medical (General) History Medical History History ICD Code colonoscopy 09-20-2010 colon polyp history of irritable bowel syndrome impaired glucose tolerance asthma Denies [place],DM,CVA,Lung disease,renal dise ase Surgical History Surgery Date(Month/Year) Caesarean section x 4 sinus surgery Grafting in gum
--- OUTSIDE RECORDS SUMMARY | 2025-07-27 16:06 | XMS_ITS | Patient Health Record ---
[facility] Organization [facility] Address [address] [facility] [address] [place] [address] Care Team Providers Care Cable Assembler And Swager Name Role Phone Brannon SOFIA, Lizeth Primary Care Provider Irish e Bimal Crystal Unavailable [phone] Allergies Allergen (clinical drug ingredient) Drug/Non Drug Allergy documented on EMR Reaction Allergy Type Onset Date Status adhesive tape (uncoded) Sensitive Allergy Active Reason For Referral Diagnosis 1 Pain in unspecified foot (M79.673) Referring Provider First Name [facility] Referring Provider Last Name Brannon Referred [facility] Referred Provider Bimal Crystal Referred Address [address] ,[place], [place],[address], Referred Provider Specialty Podiatry Referral Priority Routine Medications Medication SIG (Take, Route, Frequency, Duration) Notes Start Date End Date Status Albuterol PRN Active Pantoprazole Sodium 20 MG 1 tablet 1/2 t o 1 hour before morning meal Orally Once a day Active Losartan Potassium 50 MG 1 tablet Orally Once a day Active Social History Tobacco Use: Social History Observation Description Date Details (start date - stop date) Never Smoker NA - NA Tobacco use other than smoking: Question Answer Notes Are you an other tobacco user? No Tobacco Control (Standard) Question Answer Notes Tobacco use: Nonsmoker Additional Findings: Tobacco non-user Current no nsmoker AUDIT-C (Standard) Question Answer Notes Did you have a drink contain ing alcohol in the past year? Yes How often did you have a dri nk containing alcohol in the past year? Declined to specify (0 point) How many drinks did you have on a typical day when you were drinking in the past year? Declined to specify (0 point) How often did you have six o r more drinks on one occasion in the past year? Declined to specify (0 point) Points 0 Interpretation Negative Vital Signs Blood pressure diastolic 84 mm Hg 06/08/2025 Height 5ft 4in in 06/08/2025 Blood pressure systolic 122 mm Hg 06/08/2025 Weight 165 lbs 06/08/2025 BMI 28.32 kg/m2 06/08/2025 Encounters Encounter Location Date Provider Diagnosis [facility] [place] [address] [place] [address] 06/08/2025 Bimal Ruizunier Ingrown nail L60.0 Assessments Encounter Date Diagnosis (ICD Code) Assessment Notes Treatment Notes Treatment Clinical Notes Section Notes 06/08/2025 Ingrown nail (ICD-10 - L60.0) Plan Of Treatment No Information Insurance Providers Payer Name Payer Address Payer Phone Subscriber Number Group Number Insured Name Patient Relationship to Insured Coverage Start Date Coverage End Date [facility] [address] [place] [address] [id number] Helen Sun Self - patient is the insured Medical (General) History Medical History History ICD Code Arthritis Reflux ( GERD) Measles Mumps Chicken pox Surgical History Surgery Date(Month/Year) breast biopsy 07/2024 1985, 1987, 1990, 19 94 sinus surgery 2000
--- OUTSIDE RECORDS SUMMARY | 2025-07-27 16:06 | XMS_ITS | Encounter Summary ---
Author Organization [facility] Address [address] [place] [address] Care Team Providers Care Biomedical Engineering Internship Name Role Phone Lizeth South Primary Care Provider [phone] Encounter Details Date Type Department Care Team (Late st Contact Info) Description 10/20/2024 Orders Only [address] 5th [place] [address] Micaela Chin MD [address] [place] [address] Social History Tobacco Use Types Packs/Day Years [...] Info) Description 12/13/2025 1:00 PM EDT Telehealth [facility] 5th Floor [address] [place] [address] 06/24/2026 3:45 PM EDT Appointment [address], [address]. [place] [address] documented as of this encounter Visit Diagnoses Not on filedocumented in this encounter Care Teams Biomedical Engineering Internship Relationship Specialty Start Date End Date Lizeth South [address] [place] [address] PCP - General Internal Medicine 03/20/23 documented as of this encounter
--- OUTSIDE RECORDS SUMMARY | 2025-07-27 16:06 | XMS_ITS | Clinical Summary ---
Author Organization [facility] Address [address] [place] [address] Phone Care Team Providers Care Prop Sawyer Name Role Phone Lizeth South MD Primary Care Provider [phone] Allergies No known active allergies Medications pantoprazole (PROTONIX) 20 MG tablet Take 20 mg by mouth daily. 1 tablet Orally Once a day Active albuterol 90 mcg/actuation inhaler Inhale 2 puffs into the lungs as needed for wheezing. Active cholecalciferol, vitamin D3, (VITAMIN D3 ORAL) Take 1,000 Units by mouth daily. Active Active Problems No known active problems Immunizations Immunization Administration Dates Next Due COVID-19 (Pre-06/24) Moderna Vaccine, mRNA, PF 10/18/2020,09/21/2020 Hepatitis B Adult 04/04/2018,01/03/2018,12/07/19 18 INFLUENZA, SPLIT VIRUS, TRIV ALENT W/ PRESERVATIVE IM 07/13/2015 Influenza Quadrivalent MDCK Preservative Free IM 06/25/2018 Influenza Quadrivalent Prese rvative Free IM 06/27/2020,06/23/2019,09/02/2016,06/06 MMR 01/03/2018,12/06/2017 Pneumococcal polysaccharide PPSV23 09/02/2004 Family History Medical History Relation Comments CV disease Father Breast cancer Mother Dementia Mother Hypertension Mother Relation Status Comments Father Mother Alive Social History Tobacco Use Types Packs/Day Years Used Date Smoking Tobacco: Former Cigarettes Smokeless Tobacco: Never Alcohol Use Standard Drinks/Week Comments Yes 7 (1 standard drink = 0.6 oz pur e alcohol) 1-2 daily Education Answer Date Recorded Are you interested in more education? Not on jadon e 12/28/2022 Are you concerned about learning? Not on file 12/28/2022 No 12/28/2022 No 12/28/2022 Digital Access Answer Date Recorded No 01/25/2023 No 01/25/2023 Reliable internet access at home? Not on file 01/25/2023 Device with a working camera? Not on file Intimate Partner Violence Answer Date R ecorded Are you denied basic needs s uch as food, clothing, or medical care? No 03/20/2023 In the past 12 months have y ou been in a relationship with a person who hurts, threatens, or tries to control you? No 03/20/2023 Are you denied basic needs s uch as food, clothing, or medical care? No 03/20/2023 In the past 12 months have y ou been in a relationship with a person who hurts, threatens, or tries to control you? No 03/20/2023 Comments No Sex and Gender Information Value Date Recorded Sex Assigned at Female 03/20/2023 1:11 PM EDT Legal Sex Female 8:33 PM EDT Gender Identity Female 03/20/2023 1:11 PM EDT Sexual Orientation Not on file Last Filed Vital Signs Vital Sign Reading Time Taken Comments Blood Pressure 182/84 03/20/2023 3:59 PM EDT Pulse 63 03/20/2023 3:59 PM EDT Temperature 36.1 C (96.9 F) 03/20/2023 3:59 PM EDT Respiratory Rate 18 03/20/2023 3:59 PM EDT Oxygen Saturation 98% 03/20/2023 3:59 PM EDT Inhaled Oxygen Concentration - - Weight 75.8 kg (167 lb) 04/12/2023 3:18 PM EDT Height 165.1 cm (5' 5 ) 04/12/2023 3:18 PM EDT Body Mass Index 27.79 04/12/2023 3:18 PM EDT Plan of Treatment Health Maintenance Due Date Last Done Comments LIPID PANEL 1960 DEPRESSION SCREENING 1972 SMOKING Hx and SMOKELESS TOBACCO SCREENING 02/09/1973 HEPATITIS C SCREENING 02/09/1978 HIV ONE-TIME SCREENING (18-65 YEARS) 02/09/1978 COLOGUARD 02/09/2005 COLONOSCOPY 02/09/2005 COLORECTAL CANCER SCREENING 02/09/2005 FIT TEST 02/09/2005 FOBT 02/09/2005 SIGMOIDOSCOPY 02/09/2005 VIRTUAL COLONOSCOPY 02/09/2005 PNEUMOCOCCAL VACCINES (50+ years) (2 of 2 - PCV) 02/09/2010 09/02/2004 ZOSTER VACCINES (1 of 2) 02/09/2010 MAMMOGRAM 07/16/2016 07/16/2014 OSTEOPOROSIS SCREENING INITIAL (ONE-TIME) 02/09/2025 INFLUENZA VACCINE (#1) 2025 , 08/21/2021, 06/27/2020, Additional history exists COVID-19 VACCINE ( season) 2025 09/12/2022, 07/19/2021, 10/18/2020, Additional history exists SCREENING FOR DIABETES 03/20/2026 03/20/2023 Adult Td,Tdap Booster 10/02/2032 10/02/2022 RSV VACCINE (1 - 1-dose 75+ series) 02/09/2035 HEPATITIS A VACCINES Aged Out No long er eligible based on patient's age to complete this topic HIB VACCINES Aged Out No longer eligi ble based on patient's age to complete this topic MENINGOCOCCAL VACCINES (ACWY) Aged Out No longer eligible based on patient's age to complete this topic MENINGOCOCCAL VACCINES (B) Aged Out N o longer eligible based on patient's age to complete this topic Medical Devices Not on file Insurance [place] [address] [place] [address] [place] [address] [place] [address] Member Subscriber Plan / Payer (Ef fective 2021-Present) Name:Helen Sun Relation to Subscriber:Self Name:Helen Sun Payer ID:[id number] (NAIC) Type:HMO Address: [address] [place], [place] [address] [place] [address] [place] [address] [place] [address] [place], [place] [facility] Care Teams Prop Sawyer Relationship Specialty Start Date End Date Lizeth South MD [address] [place] [address] PCP - General 09/05/17 Additional Source Comments The information contained in this document represents components of the legal health record. It is not the complete legal health record.[facility]
== END 2025-07-27 13:08 | disposition home or self-care (01) ==
LOC: HO.HMCC 12:32
PROVIDERS: PCP Internal Medicine; Visit Provider Internal Medicine
DX: Z00.01 Encounter for general adult medical examination with abnormal findings (principal); I10 Essential (primary) hypertension; E55.9 Vitamin D deficiency, unspecified; K21.9 Gastro-esophageal reflux disease without esophagitis; R73.03 Prediabetes; K64.8 Other hemorrhoids; Z23 Encounter for immunization

== ENCOUNTER 2025-07-27 12:32 | Outpatient (REF) | payer BC, SELFPAY ==
[2025-07-27 16:34] LABS: Alanine Aminotransferase 24 U/L (0-31); Albumin Level 4.8 g/dL (3.5-5.0); Alkaline Phosphatase 57 U/L (39-117); Anion Gap 10 (12-20); Aspartate Amino Transferase 24 U/L (5-31); Blood Urea Nitrogen 15 mg/dL (9-16); Calcium 9.6 mg/dL (8.4-10.2); Carbon Dioxide 30 mmol/L (22-29); Chloride 106 mmol/L (96-108); Estimated Glomerular Filt Rate > 60; Potassium 4.0 mmol/L (3.3-5.1); Sodium 142 mmol/L (135-145); Total Protein 7.4 g/dL (6.5-8.0)
== END 2025-07-27 12:33 | disposition home or self-care (01) ==
LOC: HO.HMGCLDS 12:32
PROVIDERS: PCP Internal Medicine; Visit Provider Internal Medicine
DX: Z00.01 Encounter for general adult medical examination with abnormal findings (principal); Z23 Encounter for immunization; I10 Essential (primary) hypertension; E55.9 Vitamin D deficiency, unspecified; K21.9 Gastro-esophageal reflux disease without esophagitis; M45.7 Ankylosing spondylitis of lumbosacral region; R73.03 Prediabetes; K64.8 Other hemorrhoids; Z79.899 Other long term (current) drug therapy
CPT/HCPCS: 36415; 80053; 83036; 90471; 90677